=== PATIENT | female | born 1985 | race Caucasian/White ===

== ENCOUNTER 2021-01-21 10:18 | Outpatient (CLI) | payer BC, SELFPAY ==
--- NOTE | 2021-01-21 10:40 | ECG_ITS ---
Measurements Intervals [place] Rate: 73 P: 18 DE: 158 QRS: 8 QRSD: 96 T: 11 QT: 385 QTc: 426 Interpretive Statements SINUS RHYTHM NORMAL ECG Electronically Signed On 01-21-2021 11:17:07 CDT by Gildardo Chen D.O.
[2021-01-21 11:04] LABS: Basophils Percent Auto 0.4 % (0.2-1.2); Eosinophils Absolute Auto 0.2 K/mm3 (0-0.3); Eosinophils Percent Auto 3.3 % (0-4.4); Hematocrit 37.8 % (37.0-47.0); Hemoglobin 12.3 g/dL (12.0-15.0); Immature Granulocyte Absolute 0.02 K/mm3 (0.00-0.031); Immature Granulocyte Percent A 0.3 % (0-0.5); Lymphocytes Absolute Auto 2.12 K/mm3 (0.9-3.2); Lymphocytes Percent Auto 29.6 % (18.3-44.2); Mean Corpuscular HGB Conc 32.5 g/dl (32-36); Mean Corpuscular Hemoglobin 26.8 pg (26-34); Mean Corpuscular Volume 82.4 fl (80-100); Monocytes Absolute Auto 0.4 K/mm3 (0.1-0.6); Monocytes Percent Auto 5.9 % (2.6-8.5); Neutrophils Absolute Auto 4.3 K/mm3 (1.3-6.7); Neutrophils Percent Auto 60.5 % (45.5-73.1); Platelet Count Result 335 k/mm3 (150-375); Red Blood Count 4.59 M/mm3 (4.2-5.4); Red Cell Distribution Width 12.9 % (11.5-14.5); White Blood Count 7.2 K/mm3 (4.5-10.0)
[2021-01-21 12:08] LABS: Alanine Aminotransferase 31 U/L (4-35); Albumin Level 4.5 g/dL (3.5-5.1); Alkaline Phosphatase 83 U/L (38-126); Anion Gap 14 mmol/L (8-16); Aspartate Amino Transferase 30 U/L (14-36); Bilirubin,Total 0.2 mg/dL (0.2-1.3); Blood Urea Nitrogen 17 mg/dL (7-17); Calcium 9.2 mg/dL (8.4-10.2); Carbon Dioxide 21 mmol/L (22-30); Chloride 104 mmol/L (98-107); Cholesterol 221 mg/dL (0-200); Estimated Glomerular Filt Rate > 60; Glucose 96 mg/dL (65-110); HDL Direct 51 mg/dL; Sodium 139 mmol/L (137-145); Triglycerides 136 mg/dL (<150)
[2021-01-21 12:18] LABS: LDL Cholesterol Direct 129 mg/dL
[2021-01-24 08:06] LABS: FSH 8.6 mIU/mL (***); LH 3.9 mIU/mL (***); Progesterone 0.4 ng/mL (***)
[2021-01-24 11:00] LABS: Testosterone Free 3.2 pg/mL (0.2-5.0)
== END 2021-01-21 10:19 | disposition home or self-care (01) ==
PROVIDERS: PCP Family Medicine; Visit Provider Nurse Practitioner Family
DX: R63.5 Abnormal weight gain (principal); R00.2 Palpitations; Z13.29 Encounter for screening for other suspected endocrine disorder; Z13.220 Encounter for screening for lipoid disorders
CPT/HCPCS: 36415; 80053; 80061; 82672; 83001; 83002; 83525; 84144; 84402; 84443; 85025; 93005

== ENCOUNTER 2021-02-11 11:01 | Outpatient (CLI) | payer BC, SELFPAY ==
--- NOTE | 2021-02-13 12:35 | WPDHOLTEREM ---
Holter/Event Monitor Holter/Event Monitor Date of procedure: 02/11/21 Holter/Event Procedure: 24 Hr Holter Monitor Indications: Palpitations Conclusion: 1. 24 hour holter monitor on 02/11/21. 2. Underlying rhythm is sinus rhythm. HR range 58-130 bpm; average HR 86 bpm. 3. There are 3 supraventricular couplets. No supraventricular tachycardia. 4. There is 1 premature ventricular complex. No ventricular tachycardia. 5. No sinoatrial or atrioventricular blocks. No significant pauses greater than 2 seconds. 6. Patient reports symptoms of fast heart rate which demonstrate sinus rhythm, HR range 85-103 bpm.
== END 2021-02-11 11:02 | disposition home or self-care (01) ==
PROVIDERS: PCP Family Medicine; Visit Provider Nurse Practitioner Family
DX: R00.2 Palpitations (principal)
CPT/HCPCS: 93225; 93226

== ENCOUNTER 2021-03-26 18:22 | Emergency (ER) | payer BC, SELFPAY ==
--- NOTE | 2021-03-26 18:26 | ED.URI ---
HPI - URI/Sore Throat General Chief Complaint: Upper Respiratory Infection Stated Complaint: Headache,Cough,Sore Throat,Chest Congestion Time Seen by Provider: 03/26/21 18:50 Source: patient, RN notes reviewed and old records reviewed Mode of arrival: ambulatory Limitations: no limitations History of Present Illness HPI Narrative: 35-year-old female who presents to [facility] with complaints of sore throat, cough, a lot of sinus drainage since Tuesday. Patient reports that she called her physician and he ordered Doxycycline for her and she has been taking this since Tuesday with no improvement in her symptoms. Patient states that her throat is very sore and her cough has become harsher and is productive Patient states that she has had COVID vaccinations X2. Patient is concerned that she might have strep or COVID is concerned because has cancer and is getting ready to start radiation treatments.She has taken Theraflu, Vicks, Tylenol and Motrin Flonase, vapor inhaler and Xyzal for her symptoms along with ordered antibiotic from MD with no improvement MD elicited complaint: cough, sore throat, rhinorrhea and nasal congestion Pertinent past history: sinusitis and seasonal allergies Onset (ago): day(s) (3 days) Consistency: progressively worsening Related Data Allergies Allergy/AdvReac Type Severity Reaction Status Date / Time cefuroxime Allergy Intermediate Gastrointestinal Verified 03/26/21 19:20 Upset erythromycin base Allergy Intermediate Hives Verified 03/26/21 19:20 Penicillins Allergy Intermediate Nausea and Verified 03/26/21 19:20 Vomiting Review of Systems Review of Systems: CONSTITUTIONAL: positive fever, chills, or sweats. EYES: Denies visual changes, redness, or discharge. ENT: Positive for rhinorrhea, congestion, sore throat, no otalgia. CARDIOVASCULAR: Denies chest pain, palpitations, or edema. RESPIRATORY: Positive for harsh cough or dyspnea. GASTROINTESTINAL: Denies abdominal pain, nausea, vomiting, positive diarrhea today only GENITOURINARY: Denies dysuria or hematuria. SKIN: Denies rash or itching. MUSCULOSKELETAL: Denies back pain, joint pain,positive for body aches NEUROLOGIC: Denies headache, numbness, or weakness. PSYCHIATRIC: Positive for anxiety or depression. All systems reviewed & are unremarkable except as noted in HPI and below PMFSH Past Medical History Medical History (Updated 03/26/21 @ 19:16 by Terri Charlton NP) Anxiety and depression Cellulitis of left lower extremity Cholecystectomy planned Chronic cholecystitis Dietary counseling and surveillance (06/29/18) Disorder of appendix Encounter for surgical aftercare following surgery of digestive system Flu vaccine need Fungal infection of skin Holter monitor, abnormal Left foot pain Morbid (severe) obesity due to excess calories Peeling skin Pleural effusion RUQ abdominal pain Symptomatic cholelithiasis Surgical History Surgical History (Updated 03/26/21 @ 19:16 by Terri Charlton NP) History of tonsillectomy Hx of cholecystectomy Previous section Family History Family History Mother Family history of allergic disorder Grandparent Family history of malignant neoplasm of ovary Father Hypertension Sibling Anxiety Depression Other Asthma Family history of malignant neoplasm Social History Social History Smoking status: Never smoker Second hand tobacco smoke exposure: No Alcohol intake: current Substance use: current Substance use type: marijuana Other substance usage details: edibles for sleep disorder Additional occupation/education comments: Gender identity (if verbalized by the patient): Female Comments At time of signature, agree with nursing past medical, surgical, social and family history. There is no relevant family history pertinent to the presentin
[2021-03-26 18:35] VITALS: BP 136/91; PULSE 104; RESP 20; TEMP 36.7; O2SAT 98
== END 2021-03-26 19:14 | disposition home or self-care (01) ==
PROVIDERS: Emergency Provider Registered Nurse; PCP Family Medicine
DX: R05.9 Cough, unspecified (principal); J06.9 Acute upper respiratory infection, unspecified; Z20.822 Contact with and (suspected) exposure to COVID-19; E66.01 Morbid (severe) obesity due to excess calories; Z68.38 Body mass index [BMI] 38.0-38.9, adult; F41.9 Anxiety disorder, unspecified
CPT/HCPCS: 87081; 87426; 87880; 99213; C9803; G0463

== ENCOUNTER → 2021-05-20 07:40 | Outpatient (CLI) | payer BC, SELFPAY ==
[2021-05-20 21:05] LABS: SARS-CoV-2 RNA PCR Positive
== END ==
PROVIDERS: PCP Family Medicine; Visit Provider Nurse Practitioner Family
DX: U07.1 COVID-19 (principal)
CPT/HCPCS: C9803; U0003; U0005

== ENCOUNTER 2021-12-25 13:39 | Emergency (ER) | payer BC, SELFPAY ==
--- NOTE | ~2021-12-25 | XR_ITS ---
EXAMINATION: XR abdomen/kub 1V DATE: 12/25/2021 15:40 INDICATION: Kidney stone. Right flank pain. TECHNIQUE: A supine view of the abdomen on 2 radiographs was obtained. COMPARISON: CT dated 12/25/2021 FINDINGS: There is excreted contrast related to the earlier contrast-enhanced CT. The left renal collecting sys tem and ureter appear normal. There is a delayed right nephrogram with more dilute excreted contrast in the mildly dilated right renal calyces corresponding to the mild obstructive hydronephrosis eviden t on prior CT. 2-3 mm distal right ureteral stone can be seen along side the incompletely distended n ormal bowel gas pattern. Lung bases are clear. Heart size is normal. Mild lumbar levocurvature. Contr ast-filled bladder. IMPRESSION: 1. 2-3 mm obstructing stone at the distalmost right ureter with mild right hydronephrosis and delayed nephrogram. Reviewed, dictated and finalized at location A. IMPRESSION: 1. 2-3 mm obstructing stone at the distalmost right ureter with mild right hydr onephrosis and delayed nephrogram.
--- NOTE | ~2021-12-25 | CT_ITS ---
EXAMINATION: CT abdomen pelvis w con DATE: 12/25/2021 15:13 INDICATION: Abdominal and back pain radiating to groin. Dysuria. TECHNIQUE: Computed tomography (CT) of the abdomen and pelvis was performed with 100 CC Omnipaque 350 intravenous contrast. Automated exposure control and iterative reconstruction technique were employe d. Exam dose: 1413.74 mGy-cm total exam DLP. COMPARISON: 04/21/2018 CT abdomen pelvis FINDINGS: The lung bases are clear of infiltrate or consolidation. Normal heart size. No pericardial or pleural effusion. Status post cholecystectomy. No hepatic, splenic, pancreatic, adrenal or renal space-occupying mass l esion is detected. There is an approximately 3.2 mm calculus at the right ureterovesical junction with moderate right hy droureteronephrosis, right nephromegaly. There is a pinpoint nonobstructing lower pole right renal calculus. Normal caliber of the abdominal aorta. No intraperitoneal or retroperitoneal or pelvic mass lesion or adenopathy or ascites. Small sliding hiatal hernia. No bowel obstruction or intraperitoneal free air. The uterus is present. There is an involuting 2 cm left ovarian cyst with small amount of free fluid in the posterior cul-de-sac. The urinary bladder is evacuated. Normal appendix. No bowel obstruction or intraperitoneal free air. Small fat-containing umbilical hernia. No suspicious osteolytic or osteoblastic lesions. IMPRESSION: 3.2 mm right ureterovesical junction calculus with moderate right hydroureteronephrosis, mild right nephromegaly Pinpoint nonobstructing right renal calculus Small sliding hiatal hernia Involuting 2 cm left ovarian cyst with small amount of free fluid in the posterior cul-de-sac Reviewed, dictated and finalized at [facility]. Reviewed, dictated and finalized at location B. 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
[2021-12-25 13:41] VITALS: BP 122/94; PULSE 73; RESP 16; TEMP 36.3; O2SAT 100
[2021-12-25 14:23] LABS: Basophils Absolute Auto 0.1 K/mm3 (0.0-0.1); Basophils Percent Auto 0.4 % (0.2-1.2); Eosinophils Absolute Auto 0.1 K/mm3 (0-0.3); Eosinophils Percent Auto 1.1 % (0-4.4); Immature Granulocyte Absolute 0.05 K/mm3 (0.00-0.031); Immature Granulocyte Percent A 0.4 % (0-0.5); Lymphocytes Absolute Auto 2.07 K/mm3 (0.9-3.2); Lymphocytes Percent Auto 16.9 % (18.3-44.2); Mean Corpuscular HGB Conc 31.7 g/dl (32-36); Mean Corpuscular Volume 85.1 fl (80-100); Mean Platelet Volume 9.9 fl (7.4-10.4); Monocytes Absolute Auto 0.6 K/mm3 (0.1-0.6); Monocytes Percent Auto 5.1 % (2.6-8.5); Neutrophils Absolute Auto 9.3 K/mm3 (1.3-6.7); Neutrophils Percent Auto 76.1 % (45.5-73.1); Platelet Count Result 390 k/mm3 (150-375); Red Blood Count 4.82 M/mm3 (4.2-5.4); Red Cell Distribution Width 12.9 % (11.5-14.5); White Blood Count 12.3 K/mm3 (4.5-10.0)
[2021-12-25] MEDS: KETOROLAC 30 MG/ML VIAL (*BKC) IV PUSH (14:34)
[2021-12-25] MEDS: SODIUM CHLORIDE 0.9% IV 1,000 ML 999 ML IV CONT (14:34)
[2021-12-25] MEDS: ONDANSETRON INJ 4 MG/2 ML VIAL IV PUSH (14:34)
--- NOTE | 2021-12-25 14:35 | PC.NURSE ---
Patient appears very uncomfortable. Patient holding right lower and and flank. Patient diaphoretic and unsettled, moving around on the stretcher. Patient reports she had sudden onset of pain today. Patient also states she feels like she needs to urinate but hasn't been.
--- NOTE | 2021-12-25 14:36 | ED.ABDPAIN ---
HPI - Abdominal Pain General Chief Complaint: Abdominal Pain Stated Complaint: rt side pain, dysuria Time Seen by Provider: 12/25/21 14:13 Source: RN notes reviewed History of Present Illness HPI narrative: Patient presents emergency department from home for abdominal pain. Patient states symptoms began this morning the pain is located in the right side the abdomen radiates in the right side of the back described as sharp and stabbing in nature associate with nausea and vomiting. She denies any fevers or chills chest pain shortness of breath or diarrhea states she not taking thing for the pain at home Related Data Allergies Allergy/AdvReac Type Severity Reaction Status Date / Time cefuroxime Allergy Intermediate Gastrointestinal Verified 12/25/21 13:46 Upset erythromycin base Allergy Intermediate Hives Verified 12/25/21 13:46 Penicillins Allergy Intermediate Nausea and Verified 12/25/21 13:46 Vomiting Review of Systems Review of Systems: Gen.: Denies fevers or chills ENT: Denies congestion Respiratory: Denies shortness of breath or cough CV: Denies chest pain or palpitations GI: See HPI reports hematuria Musculoskeletal: Denies back pain or muscle pain Neuro: Denies numbness, tingling, weakness or focal weakness Skin: Denies rash Except as documented, all other systems reviewed and negative PMFSH Past Medical History Medical History (Updated 12/25/21 @ 16:29 by Rodrick Houston DO) Anxiety and depression BMI 38.0-38.9,adult Cellulitis of left lower extremity Cholecystectomy planned Chronic cholecystitis Dietary counseling and surveillance (06/29/18) Disorder of appendix Encounter for surgical aftercare following surgery of digestive system Flu vaccine need Fungal infection of skin Holter monitor, abnormal Left foot pain Peeling skin Pleural effusion RUQ abdominal pain Symptomatic cholelithiasis Surgical History Surgical History History of tonsillectomy Hx of cholecystectomy Previous section Family History Family History Mother Family history of allergic disorder Grandparent Family history of malignant neoplasm of ovary Father Hypertension Sibling Anxiety Depression Other Asthma Family history of malignant neoplasm Social History Social History Smoking status: Never smoker Second hand tobacco smoke exposure: No Alcohol intake: current Substance use: current Substance use type: marijuana Other substance usage details: edibles for sleep disorder Additional occupation/education comments: Gender identity (if verbalized by the patient): Female Exam Narrative: APPEARANCE: No acute distress, nontoxic, resting in bed HEENT: Normocephalic, atraumatic, OMM RESPIRATORY: No respiratory distress, clear to auscultation bilaterally with no rhonchi wheezing or rales CARDIOVASCULAR: RRR s murmur ABDOMINAL: Soft nondistended tender palpation right upper quadrant right lower quadrant no tenderness over left upper quadrant left lower quadrant no rebound or guarding right flank tenderness MUSCULOSKELETAl: Moves all extremities. No clubbing, cyanosis or edema. NEURO: Awake and alert. Following commands, speech normal, no focal deficits SKIN:: Warm, dry. Normal Color PSYCHIATRIC: Normal affect/mood exam Course Course Emergency Course: Patient continues to have pain will discuss with urology for possible stone removal Discussed with Dr. Vásquez presentation work-up at this time take patient to the OR Discussed with patient plan for OR in agreement at this time Dr. Sheikh intensive patient feeling much better this time at this time feels patient may be discharged follow-up as an outpatient Discussed with patient results of workup and diagnosis. Discussed need for follow-up with luiz
[2021-12-25 14:43] LABS: Appearance Urine Cloudy (Clear); Bilirubin Urine 1+ (Negative); Blood Urine Trace-lysed (Negative); Color Urine Yellow (Yellow); Glucose Urine UA Negative (Negative); Ketones Urine Trace mg/dL (Negative); Leukocyte Esterase Ur Negative LEU/UL (Negative); Nitrate Urine Negative (Negative); Protein Urine Trace mg/dL (Negative); Specific Grav Ur >= 1.030 (1.001-1.035); Urobilinogen Urine 0.2 mg/dL (<2.0); pH Urine 5.5 (5.0-9.0)
[2021-12-25 14:44] LABS: Alanine Aminotransferase 23 U/L (6-35); Alkaline Phosphatase 85 U/L (38-126); Anion Gap 14 mmol/L (8-16); Aspartate Amino Transferase 23 U/L (14-36); Bilirubin,Total 0.4 mg/dL (0.2-1.3); Blood Urea Nitrogen 19 mg/dL (7-17); Calcium 9.6 mg/dL (8.4-10.2); Carbon Dioxide 24 mmol/L (22-30); Chloride 103 mmol/L (98-107); Estimated CRCL calculation 84 ml/min; Estimated Glomerular Filt Rate > 60; Glucose 117 mg/dL (65-110); Lipase 48 U/L (23-300); Potassium 3.5 mmol/L (3.4-5.0); Sodium 141 mmol/L (137-145)
[2021-12-25 15:00] LABS: Amorphous Sediment Urine Few; Bacteria Urine Trace /hpf; Mucus Urine Heavy /lpf; Squamous Epithelial Cell Urine Many /hpf (Few); WBC Urine 0-3 /hpf
[2021-12-25 15:01] LABS: Add Urine Microscopic? YES
[2021-12-25 15:16] VITALS: BP 135/67; O2SAT 100
[2021-12-25 15:17] VITALS: O2SAT 100
--- NOTE | 2021-12-25 15:30 | PC.NURSE ---
Patient to CT at this time.
[2021-12-25 15:37] VITALS: O2SAT 100
[2021-12-25] MEDS: MORPHINE SULFATE (*CRX) 4 MG/ML INJ IV PUSH (15:41)
[2021-12-25 16:03] VITALS: O2SAT 100
--- NOTE | 2021-12-25 16:14 | PC.NURSE ---
Patient care report called to KATYA Gao in Pre-op. All questions answered at this time. KATYA Gao instructed that patient could be moved to [facility] around 1700.
--- NOTE | 2021-12-25 16:28 | WPDANESEPPF ---
Anes - Initial Pre Proc Eval Procedure: Operation Date: 12/25/21 18:00 Proposed Procedures p Cystoscopy,Right Stent Placement - Swapna Vásquez MD Date/Time: 12/25/21 16:28 Surgeon: Swapna Vásquez MD Pre Op Diagnosis: rt side pain, dysuria Patient Data Age: 36 Gender: F Height: 1.65 m Weight: 104.5 kg Last Vital Signs Temp 36.3 C L 12/25/21 13:41 Pulse 73 12/25/21 13:41 Resp 16 12/25/21 13:41 BP 122/94 H 12/25/21 13:41 Pulse Ox 100 12/25/21 13:41 O2 Del Method Room Air 12/25/21 13:41 Allergies Allergy/AdvReac Type Severity Reaction Status Date / Time cefuroxime Allergy Intermediate Gastrointestinal Verified 12/25/21 13:46 Upset erythromycin base Allergy Intermediate Hives Verified 12/25/21 13:46 Penicillins Allergy Intermediate Nausea and Verified 12/25/21 13:46 Vomiting Home Medications Medication Instructions Recorded Confirmed Type albuterol sulfate 90 mcg/actuation 1 puff inhalation Q4H PRN 05/21/21 11/22/21 Rx aerosol inhaler shortness of breath or wheezing #8.5 grams clobetasol 0.05 % topical ointment 1 applic topical BID #30 grams 11/04/21 11/04/21 Rx bupropion HCl 300 mg 24 hr tablet, 300 mg PO QAM #90 tabs 12/02/21 Rx extended release (Wellbutrin XL) dextroamphetamine-amphetamine 20 20 mg PO DAILY #30 tabs 12/07/21 Rx mg tablet (Adderall) Laboratory Tests 12/25/21 12/25/21 12/25/21 14:15 14:15 14:19 WBC 12.3 K/mm3 H K/mm3 (4.5-10.0) RBC 4.82 M/mm3 M/mm3 (4.2-5.4) Hgb 13.0 g/dL g/dL (12.0-15.0) Hct 41.0 % % (37.0-47.0) MCV 85.1 fl fl (80-100) MCH 27.0 pg pg (26-34) MCHC 31.7 g/dl L g/dl (32-36) RDW 12.9 % % (11.5-14.5) Plt Count 390 k/mm3 H k/mm3 (150-375) MPV 9.9 fl fl (7.4-10.4) Immature Gran % (Auto) 0.4 % % (0-0.5) Neut % (Auto) 76.1 % H % (45.5-73.1) Lymph % (Auto) 16.9 % L % (18.3-44.2) [place] % (Auto) 5.1 % % (2.6-8.5) Eos % (Auto) 1.1 % % (0-4.4) Baso % (Auto) 0.4 % % (0.2-1.2) Lymph # (Auto) 2.07 K/mm3 K/mm3 (0.9-3.2) [place] # (Auto) 0.6 K/mm3 K/mm3 (0.1-0.6) Eos # (Auto) 0.1 K/mm3 K/mm3 (0-0.3) Baso # (Auto) 0.1 K/mm3 K/mm3 (0.0-0.1) Abs Immat Gran (auto) 0.05 K/mm3 H K/mm3 (0.00-0.031) Absolute Neuts (auto) 9.3 K/mm3 H K/mm3 (1.3-6.7) Absolute Nucleated RBC 0.0 K/mm3 K/mm3 (0.0-0.012) Nucleated RBC % 0.0 % % (0.0-0.2) Sodium 141 mmol/L mmol/L (137-145) Potassium 3.5 mmol/L mmol/L (3.4-5.0) Chloride 103 mmol/L mmol/L (98-107) Carbon Dioxide 24 mmol/L mmol/L (22-30) Anion Gap 14 mmol/L mmol/L (8-16) BUN 19 mg/dL H mg/dL (7-17) Creatinine 1.00 mg/dL mg/dL (0.7-1.0) Estim Creat Clear Calc 84 ml/min ml/min Estimated GFR > 60 (59 - ) Glucose 117 mg/dL H mg/dL (65-110) Calcium 9.6 mg/dL mg/dL (8.4-10.2) Total Bilirubin 0.4 mg/dL mg/dL (0.2-1.3) AST 23 U/L U/L (14-36) ALT 23 U/L U/L (6-35) Alkaline Phosphatase 85 U/L U/L (38-126) Total Protein 9.0 g/dL H g/dL (6.3-8.2) Albumin 5.0 g/dL g/dL (3.5-5.1) Lipase 48 U/L U/L (23-300) Urine Color Yellow (Yellow) Urine Appearance Cloudy H (Clear) Urine pH 5.5 (5.0-9.0) Ur Specific [place] >= 1.030 (1.001-1.035) Urine Protein Trace mg/dL mg/dL (Negative) Urine Glucose (UA) Negative mg/dL mg/dL (Negative) Urine Ketones Trace mg/dL mg/dL (Negative) Ur Blood (Man) Trace-lysed (Negative) Urine Nitrate Negative (Negative) Urine Bilirubin 1+ H (Negative) Urine Urobilinogen 0.2
[2021-12-25 16:30] VITALS: O2SAT 100
--- NOTE | 2021-12-25 17:08 | WPDURCON ---
Assessment and Plan Assessment and plan (1) Kidney stone on right side: Code(s): N20.0 - Calculus of kidney Status: Acute Plan 36-year-old female with a 3mm right distal ureteral stone with associated hydronephrosis -pain is now controlled in the ER. Plan discharge home with oral narcotic pain medicine and Flomax. -patient should strain her urine. -plan follow-up renal ultrasound and KUB next week to ensure stone passage Urology Consult Note HPI Date Seen: 12/25/21 Requesting Physician: Dr. Leon Primary Care Provider: Clinton Gutierrez MD Consult Narrative Narrative: Fanny Aponte is a 36 year old female who presented to the ER with severe right-sided pain. She was found to have a distal right-sided stone. No history of previous stone disease. Patient was given IV narcotic pain medicine the ER with improvement of her discomfort PMFSH Past Medical History Medical History (Updated 12/25/21 @ 16:29 by Rodrick Houston DO) Anxiety and depression BMI 38.0-38.9,adult Cellulitis of left lower extremity Cholecystectomy planned Chronic cholecystitis Dietary counseling and surveillance (06/29/18) Disorder of appendix Encounter for surgical aftercare following surgery of digestive system Flu vaccine need Fungal infection of skin Holter monitor, abnormal Left foot pain Peeling skin Pleural effusion RUQ abdominal pain Symptomatic cholelithiasis Surgical History Surgical History History of tonsillectomy Hx of cholecystectomy Previous section Family History Family History Mother Family history of allergic disorder Grandparent Family history of malignant neoplasm of ovary Father Hypertension Sibling Anxiety Depression Other Asthma Family history of malignant neoplasm Social History Social History Smoking status: Never smoker Second hand tobacco smoke exposure: No Alcohol intake: current Substance use: current Substance use type: marijuana Other substance usage details: edibles for sleep disorder Additional occupation/education comments: Gender identity (if verbalized by the patient): Female Meds Home Medications and Allergies Home Medications Medication Instructions Recorded Confirmed Type albuterol sulfate 90 mcg/actuation 1 puff inhalation Q4H PRN 05/21/21 11/22/21 Rx aerosol inhaler shortness of breath or wheezing #8.5 grams clobetasol 0.05 % topical ointment 1 applic topical BID #30 grams 11/04/21 11/04/21 Rx bupropion HCl 300 mg 24 hr tablet, 300 mg PO QAM #90 tabs 12/02/21 Rx extended release (Wellbutrin XL) dextroamphetamine-amphetamine 20 20 mg PO DAILY #30 tabs 12/07/21 Rx mg tablet (Adderall) Allergies Allergy/AdvReac Type Severity Reaction Status Date / Time cefuroxime Allergy Intermediate Gastrointestinal Verified 12/25/21 13:46 Upset erythromycin base Allergy Intermediate Hives Verified 12/25/21 13:46 Penicillins Allergy Intermediate Nausea and Verified 12/25/21 13:46 Vomiting Vital Signs Vital Signs - 24 hr 12/25/21 13:41 12/25/21 15:16 12/25/21 15:17 Temperature 36.3 C L Pulse Rate 73 Respiratory Rate 16 Blood Pressure 122/94 H 135/67 Pulse Oximetry 100 100 100 Oxygen Delivery Room Air 12/25/21 15:37 12/25/21 16:03 12/25/21 16:30 Temperature Pulse Rate Respiratory Rate Blood Pressure Pulse Oximetry 100 100 100 Oxygen Delivery Exam Narrative: The patient is awake and alert. She is in no acute distress. Breathing is labored. Abdomen soft nontender nondistended. Currently without CVA tenderness Results Labs CBC & Chem 7: 12/25/21 14:15 12/25/21 14:15 Labs: Short CBC 12/25/21 Range/Units 14:15 WBC 12.3 H (4.5-10.0) K/mm3 Hg
== END 2021-12-25 17:27 | disposition home or self-care (01) ==
LOC: ANHED 16:11 → ANHSURGERY 17:05 → ANHED 17:07
PROVIDERS: Emergency Provider Emergency Medicine; PCP Family Medicine
DX: N13.2 Hydronephrosis with renal and ureteral calculous obstruction (principal); K44.9 Diaphragmatic hernia without obstruction or gangrene
CPT/HCPCS: 36415; 74018; 74177; 80053; 81001; 81025; 83690; 85025; 96361; 96374; 96375; 99284; A9270; J1885; J2270; J2405; J7030; Q9967

== ENCOUNTER 2024-01-30 08:31 | Emergency (ER) | payer BC, SELFPAY ==
--- NOTE | 2024-01-30 08:44 | ED.GENADULT ---
HPI - General Adult General Chief complaint: Neck Pain/Injury Stated complaint: Neck Pain Time Seen by Provider: 01/30/24 08:58 Source: patient, RN notes reviewed and old records reviewed Mode of arrival: ambulatory Limitations: no limitations History of Present Illness HPI narrative: 38 year old female presents to the [facility] with complaints of left lower neck pain. Patient reports that a tree branch approximately 6 in in diameter fell on the top of her head yesterday. States that she felt a little off yesterday, lay down to take a nap. Patient reports that she was seeing spots/floaters Has used ice or heat to the area. Denies taking oral medication Patient reports this morning she woke up, went to turn her head had significant pain C6-C7 T1. States the pain was so bad that she did vomit. Pain and tenderness to lower C-spine, midline. Patient reports numbness and tingling at times to the left side. Denies loss of consciousness. Onset (ago): day(s) (1) Treatments prior to arrival: cold therapy and heat therapy Related Data Allergies Allergy/AdvReac Type Severity Reaction Status Date / Time erythromycin base Allergy Intermediate Hives Verified 01/30/24 08:54 cefuroxime AdvReac Intermediate Gastrointestinal Verified 01/30/24 08:54 Upset Penicillins AdvReac Intermediate Nausea and Verified 01/30/24 08:54 Vomiting Review of Systems Review of Systems: All systems reviewed & are unremarkable except as noted in HPI and below Constitutional: Constitutional: Reports no additional constitutional complaints Eyes: Eyes: Reports no additional eye complaints ENT: Reports system reviewed and no additional complaints, except as documented Cardiovascular: Cardiovascular: Reports no additional cardiovascular complaints, Denies chest pain and Denies dyspnea Respiratory: Respiratory: Reports no additional respiratory complaints, Denies chest congestion, Denies cough and Denies dyspnea Gastrointestinal: Gastrointestinal: Reports as per HPI, Denies abdominal pain, Reports nausea and Reports vomiting Musculoskeletal: Musculoskeletal: Reports as per HPI, Reports neck pain (left lower), Reports numbness (Intermittent left arm and leg), Reports stiffness and Reports tingling (Left arm leg, intermittent) Integumentary/Breasts: Skin/Breast: Reports system reviewed and no additional complaints, except as docu Neurologic: Reports as per HPI Psychiatric: Psychiatric: Reports no additional psychiatric complaints Allergic/Immunologic: Allergic/Immunologic: Reports no additional allergic/immunologic complaints PMFSH Past Medical History Medical History Anxiety and depression Cellulitis of left lower extremity Cholecystectomy planned Chronic cholecystitis Dietary counseling and surveillance (06/29/18) Disorder of appendix Encounter for surgical aftercare following surgery of digestive system Flu vaccine need Fungal infection of skin Holter monitor, abnormal Left foot pain Peeling skin Pleural effusion RUQ abdominal pain Symptomatic cholelithiasis Surgical History Surgical History History of tonsillectomy Hx of cholecystectomy Previous section Family History Family History Mother Family history of allergic disorder Grandparent Family history of malignant neoplasm of ovary Father Hypertension Sibling Anxiety Depression Other Asthma Family history of malignant neoplasm Social History Social History Smoking status: Never smoker Second hand tobacco smoke exposure: No Alcohol intake: current Substance use: current Substance use type: marijuana Other substance usage details: edibles for sleep disorder Lack of Transportation: No Lack of Food: Never True Current [facility]: [facility]
[2024-01-30 08:54] VITALS: BP 150/94; PULSE 71; RESP 16; TEMP 36.7; O2SAT 100
[2024-01-30 08:56] VITALS: BP 150/94; PULSE 71; RESP 16; TEMP 36.7; O2SAT 100
== END 2024-01-30 09:22 | disposition short-term general hospital (02) ==
PROVIDERS: Emergency Provider Nurse Practitioner; PCP Family Medicine
DX: M54.2 Cervicalgia (principal); S09.90XA Unspecified injury of head, initial encounter; W20.8XXA Other cause of strike by thrown, projected or falling object, initial encounter
CPT/HCPCS: 99212; G0463; L0140

== ENCOUNTER 2024-04-23 08:17 | Outpatient (CLI) | payer BC, SELFPAY ==
[2024-05-20 11:30] VITALS: BMI 40.5
--- NOTE | 2024-05-20 11:30 | P.SLEEP_ITS ---
Sleep Study Date of Study: 04/23/24 Ordering Provider: PALLAVI Yanez Interpreting Physician: Elaine Cash DO Sleep Study Type: Polysomnogram Height: 1.68 m Weight: 113.852 kg Body Mass Index: 40.5 Neck Circumference (inches): 17 Bud: 8 Reason for Sleep Study Snoring, difficulty staying asleep Sleep History The patient is a 38-year-old female that had a sleep study ordered by the pulmonary group for evaluation of sleep apnea. The patient occasionally awakens from sleep short breath. She denies awakening at night with heartburn, belching or cough. She occasionally snores and is occasionally enough others complain. She constantly has trouble sleeping when she has a cold. She denies waking up gasping for air throughout the night. She denies having breathing problems at night observed by herself or others. She denies sweating excessively at night. She rarely has heart palpitations or irregular heartbeats during 9. She occasionally falls asleep during the day but never while driving. She denies cataplexy. She denies having trouble at school or work due to sleepiness. She occasionally feels unable to move while waking up or falling asleep. She occasionally feels afraid of going to sleep. She occasionally has nightmares. She frequently remembers her dreams. She constantly has thoughts racing through her mind. She frequently feels sad, depressed and anxious. She occasionally has muscular tension. She rarely notices parts of her body jerk. She denies kicking during the night. She denies having crawling and aching feelings in her legs and denies having leg pain during the night. She constantly grinds her teeth during sleep min constantly awakens with morning jaw pain. She denies being bothered by pain during the day and denies being awakened by pain during the night. She frequently wakes up feeling stiff in the morning. She frequently wakes up with sore or achy muscles. She rarely wakes up with pain neck, spine or other joints. She goes to bed between 9-11 p.m. on both weekdays and weekends. It takes her a long time to fall asleep. She wakes up 3-6 times throughout the night for unknown reasons and it takes a minimum of 15 minutes to fall back asleep. She wakes up between 6-7 a.m. on both weekdays and weekends. She typically gets 5 hours of sleep per night. She will stay in bed for 30 minutes after waking up the morning. She currently lives with her and child. She denies consuming any caffeinated beverages within 2 hours of bedtime. He denies engaging in physical exercise before bedtime. She will watch television before falling asleep. She denies taking naps in the afternoon or the evening. She does use an unspecified recreational drug. [facility] Past Medical History Medical History Holter monitor, abnormal Cholecystectomy planned Anxiety and depression Cellulitis of left lower extremity Chronic cholecystitis Dietary counseling and surveillance (06/29/18) Disorder of appendix Encounter for surgical aftercare following surgery of digestive system Flu vaccine need Fungal infection of skin Left foot pain Peeling skin Pleural effusion RUQ abdominal pain Symptomatic cholelithiasis Surgical History Surgical History Hx of cholecystectomy History of tonsillectomy Previous section Family History Family History Mother Family history of allergic disorder Grandparent Family history of malignant neoplasm of ovary Father Hypertension Sibling Anxiety Depression Other Asthma Family history of malignant neoplasm Social History Social History Smoking status: Never smoker Second hand tobacco smoke exposure: No Alcohol intake: current Substance use: current Substance use type: marijuana Other substance usage details: edibles for sleep disorder Lack of Transportation: No Lack of Food: Never True Current Housing: I Have Housing Concerned About Future Housing: No Difficulty Paying Gas/Electric Bills: No Difficulty Paying for Meds: No Currently Unemployed: No Education: Trade/Vocational Certificate Difficulty w/ Childcare or Family Care: No Living arrangements: with family Occupation/Education: occupation Additional occupation/education comments: Gender identity (if verbalized by the patient): Female Medications Home Medications ?Medication ?Instructions ?Recorded ?Confirmed ?Type nystatin 100,000 unit/gram topical 1 applic topical BID fugal foot 03/28/23 03/23/24 Rx cream rash #60 grams ketoconazole 2 % topical cream 1 applic topical BID #30 grams 08/04/23 03/23/24 Rx ubrogepant 50 mg tablet (Ubrelvy) 50 mg PO ONCE PRN migraine 08/04/23 03/23/24 Rx headache #10 tabs dextroamphetamine-amphetamine 20 20 mg PO DAILY #30 tabs 01/05/24 03/23/24 Rx mg tablet (Adderall) albuterol sulfate 90 mcg/actuation 1 puff inhalation Q4H PRN 01/30/24 03/23/24 Rx aerosol inhaler shortness of breath or wheezing #8.5 grams eszopiclone 2 mg tablet (Lunesta) 2 mg PO ONCE #1 tablet 03/23/24 03/23/24 Rx clindamycin HCl 300 mg capsule 300 mg PO Q8H 10 days #30 caps 05/14/24 Rx (Cleocin HCl) Sleep Procedure A full night polysomnogram using the Deltasight multi-channel system recorded the standard physiologic parameters including EEG, EOG, submentalis EMG, anterior tibialis EMG, EKG, body position, nasal and oral airflow using nasal pressure sensor and thermistor.? Respiratory parameters of chest and abdominal movements were recorded with Respiratory Inductance Plethysmography belts. Oxygen saturation was recorded by pulse oximetry. Video monitoring was also performed. Sleep stages, periodic limb movements, and EEG arousals were scored in 30 second epochs according to the criteria of the AASM Scoring Manual. The Apnea-Hypopnea Index was calculated using [facility] guidelines for definition of hypopnea with 4% O2 desaturations while scoring respiratory events. Sleep Architecture The total recording time was 519.2 minutes.? The total sleep time was 464.5 min utes. Sleep latency was 26.2 minutes. REM latency was 83.5 minutes. Sleep efficiency was 89.5%. The patient had 18 awakenings for an awakening index of 2.3. Wake after sleep onset time was 28.5 minutes. The patient spent 18.0 minutes, 3.9% of total sleep time in Stage N1. The patient spent 277.0 minutes, 59.6% in Stage N2. The patient spent 86.0 minutes, 18.5% in Stage N3. The patient spent 83.5 minutes, 18.0% in Stage REM sleep. Respiratory Analysis AASM Criteria (3% desat): The patient had 44 hypopneas, 5 obstructive apneas for an overall Apnea Hypopnea Index of 6.3. The REM Apnea Hypopnea Index was 28.0. The NREM Apnea Hypopnea Index was 1.6. The patient had a Central Apnea Hypopnea Index of 0. There was no evidence of Douglas-Soto Respirations. CMS Criteria (4% desat): The patient had 23 hypopneas, 5 obstructive apneas for an overall Apnea Hypopnea Index of 3.6. The REM Apnea Hypopnea Index was 25.9. The NREM Apnea Hypopnea Index was 0.6. The patient had a Central Apnea Hypopnea Index of 0. There was no evidence of Douglas-Soto Respirations. Arousals There were 197 total arousals for an arousal index of 25.4. There were 141 spontaneous arousals for an index of 18.2. There were 9 arousals due to respiratory events for an index of 1.2. There were 3 arousals due to periodic l imb movements for an index of 0.4.? There were 45 arousals due to isolated limb movements for an index of 5.8. Periodic Limb Movements The patient had 60 isolated limb movements with an index of 7.8. The patient had 5 periodic limb movements with an index of 0.6. Patient had a total of 65 limb movements with a total limb movement index of 8.4. Oximetry Data The patient had an average oxygen saturation of 96.4% in sleep with a minimum oxygen saturation of 88.0% and a maximum oxygen saturation of 99.0%. The patient had 27 oxygen desaturations that were 4% or greater resulting in an Oxygen Desaturation Index of 3.5.? The patient spent 0.2 minutes of total sleep time with an oxygen saturation below 88%. Snoring Profile Mild to moderate snoring was present during this study. Cardiac Profile The EKG showed normal sinus rhythm.?No arrhythmias or premature beats were seen. The patient had an average pulse rate of 72.9 bpm with a minimum pulse of rate of 62.0 bpm and a maximum pulse rate of 102.0 bpm. EEG Profile No signs of seizure activity seen. Assessment and Plan Assessment and Plan (1) EDWAR (obstructive sleep apnea): Code(s): G47.33 - Obstructive sleep apnea (adult) (pediatric) Status: Acute Assessment and Plan: The patient had an overall AHI of 6.3 with desaturation down to 88%. This is consistent with mild sleep apnea. Due to the patient's anxiety, she qualifies for treatment. I recommend that the patient be prescribed AutoPAP 5-15 cm H2O, CPAP mask/filters/tubing and heated humidity. This should be used with all episodes of sleep.? Compliance should be reviewed within 31-90 days of starting therapy for usage greater than 4 hours per night greater than 70% of the nights. The patient should be asked about symptoms such as?excessive daytime sleepiness, quality of sleep, decreased nocturia, increased?mental functioning such as memory, mood, and concentration. The patient also mentioned having frequent symptoms of anxiety and depression in her sleep history. I recommend that the patient complete a PHQ-9 and [id number] for further evaluation of mood disorders and review the results with her PCP. Data The data obtained during this sleep study is adequate for interpretation. Certification This sleep study has been reviewed by a board certified sleep medicine physician.
== END 2024-04-24 07:22 | disposition home or self-care (01) ==
LOC: ANHCSM 08:18
PROVIDERS: PCP Family Medicine; Visit Provider Physician Assistant
DX: G47.33 Obstructive sleep apnea (adult) (pediatric) (principal); G47.10 Hypersomnia, unspecified
CPT/HCPCS: 95810

== ENCOUNTER 2024-05-14 08:01 | Emergency (ER) | payer BC, SELFPAY ==
[2024-05-14 08:21] VITALS: BP 127/84; PULSE 97; RESP 16; TEMP 36.4; O2SAT 99
--- NOTE | 2024-05-14 08:49 | ED_ITS ---
HPI - URI/Sore Throat General Chief Complaint: Upper Respiratory Infection Stated Complaint: fever/cough/congestion/sore throat History of Present Illness HPI Narrative: 38 y/o female presented for c/o nasal congestion, sore throat, cough and subjective fever for 3 days. Denies sob, wheezing, n/v/d. Taking otc meds without relief. Son with the same. Related Data Allergies Allergy/AdvReac Type Severity Reaction Status Date / Time erythromycin base Allergy Mild Hives Verified 05/14/24 08:23 cefuroxime AdvReac Intermediate Gastrointestinal Verified 05/14/24 08:23 Upset Penicillins AdvReac Intermediate Nausea and Verified 05/14/24 08:23 Vomiting Review of Systems Review of Systems: per HPI [facility] Past Medical History Medical History Holter monitor, abnormal Cholecystectomy planned Anxiety and depression Cellulitis of left lower extremity Chronic cholecystitis Dietary counseling and surveillance (06/29/18) Disorder of appendix Encounter for surgical aftercare following surgery of digestive system Flu vaccine need Fungal infection of skin Left foot pain Peeling skin Pleural effusion RUQ abdominal pain Symptomatic cholelithiasis Surgical History Surgical History Hx of cholecystectomy History of tonsillectomy Previous section Family History Family History Mother Family history of allergic disorder Grandparent Family history of malignant neoplasm of ovary Father Hypertension Sibling Anxiety Depression Other Asthma Family history of malignant neoplasm Social History Social History Smoking status: Never smoker Second hand tobacco smoke exposure: No Alcohol intake: current Substance use: current Substance use type: marijuana Other substance usage details: edibles for sleep disorder Lack of Transportation: No Lack of Food: Never True Current Housing: I Have Housing Concerned About Future Housing: No Difficulty Paying Gas/Electric Bills: No Difficulty Paying for Meds: No Currently Unemployed: No Education: Trade/Vocational Certificate Difficulty w/ Childcare or Family Care: No Living arrangements: with family Occupation/Education: occupation Additional occupation/education comments: Gender identity (if verbalized by the patient): Female Exam Narrative: GENERAL: well-appearing, no acute distress. EYES: conjunctivae clear ENT: Mucous membranes moist. nasal congestion. TM pearly anne with normal light reflex bilaterally; no tragal tenderness. Oropharynx mildly erythematous without lesions. No drooling, no hoarseness, no trismus, uvula midline. No tripod positioning, hot potato voice, or soft palate swelling. NECK: Supple. No lymphadenopathy CHEST: Clear to auscultation, breath sounds equal. No respiratory distress, speaks in full sentences. HEART: Regular rate and rhythm. No murmur heard. SKIN: Warm, dry, no rash. NEURO: Alert and oriented x3. Course Course Emergency Course: Patient is aware of diagnosis, understands and agrees to treatment plan. Anticipatory guidance given. Patient agrees to follow-up as directed and is aware of reasons to seek care at the emergency department. Portions of this record may have been created with voice recognition software Level of Care: Express Care Visit Vital Signs Vital signs: Vital Signs Temperature 97.6 F 05/14/24 08:21 Pulse Rate 97 05/14/24 08:21 Respiratory Rate 16 05/14/24 08:21 Blood Pressure 127/84 05/14/24 08:21 Pulse Oximetry 99 05/14/24 08:21 Oxygen Delivery Room Air 05/14/24 08:21 Temperature 97.6 F 05/14/24 08:21 Pulse Rate 97 05/14/24 08:21 Respiratory Rate 16 05/14/24 08:21 Blood Pressure 127/84 05/14/24 08:21 Pulse Oximetry 99 05/14/24 08:21 Oxygen Delivery Room Air 05/14/24 08:21 MDM - URI/Sore Throat MDM Narrative Medical decision making narrative: Neg flu and covid, strep result reviewed with pt. Son tested pos for strep today. will give abx. Advise supportive treatments. Patient is appropriate for outpatient treatment and follow-up. Differential Diagnosis Differential diagnosis: Likely upper respiratory infection, sinusitis, viral infection, bronchitis, influenza and pharyngitis Lab Data Labs: Lab Results 05/14/24 05/14/24 Range/Units 08:23 08:32 POC Influenza A Ag Negative (Negative) POC Influenza B Ag Negative (Negative) POC SARS CoV-2 Ag Negative (Negative) POC Grp A Strep Screen Negative (Negative) Discharge Plan Discharge Clinical Impression: Upper respiratory infection Patient Disposition: Home, Self-Care Condition: Stable Instructions: Antibiotic Form, Upper Respiratory Infection (ED) Additional Instructions: Flu COVID and strep negative if symptoms are due to a viral illness, it is not treated with antibiotics. Viral symptoms can be present for up to 10-14 days. - Take the antibiotic as directed. Fever and sore throat typically resolve within one to three days. Most patients can return to work/crowds after 12 to 24 hours of antibiotic therapy, provided you are fever free and otherwise well. -Eat and drink things that are easy to swallow, like soft foods, cool liquids, tea with honey, or popsicles . -Salt water gargles and/or may use topical anesthetic ( Chloraseptic spray) or lozenges to relieve dryness or throat pain -Alternate Tylenol and ibuprofen as needed for pain and fever as directed. -Frequent hand washing or hand embedded systems developer is one of the best ways to prevent spread of infection. Throw away the toothbrush after 24hours of antibiotic. -Follow up with primary care provider in 2-3 days if condition is not improving -Go to the ER if you have trouble breathing, cannot drink enough fluids, have muffled voice or drooling, difficulty opening your mouth, or severe swelling. Patient Language: Georgian Prescriptions: New clindamycin HCl [Cleocin HCl] 300 mg capsule 300 mg PO Q8H 10 Days Qty: 30 0RF No Action nystatin 100,000 unit/gram cream 1 applic topical BID Qty: 60 0RF eszopiclone [Lunesta] 2 mg tablet 2 mg PO ONCE Qty: 1 0RF Rx Instructions: Take with you to sleep lab on the night of sleep study. ketoconazole 2 % cream 1 applic topical BID Qty: 30 0RF Ubrelvy 50 mg tablet 50 mg PO ONCE PRN (Reason: migraine headache) Qty: 10 5RF Rx Instructions: as a single dose; may repeat once in >=2 hours after first dose if needed dextroamphetamine-amphetamine [Adderall] 20 mg tablet 20 mg PO DAILY Qty: 30 0RF albuterol sulfate 90 mcg/actuation HFA aerosol inhaler 1 puff inhalation Q4H PRN (Reason: shortness of breath or wheezing) Qty: 8.5 0RF Follow-up/Referrals: Clinton Gutierrez MD [Primary Care Provider] - Stand Alone Forms: Work/School Release IP
[2024-05-14 08:54] LABS: EDCOVIDSCREEN Negative (Negative); EDINFLUASCREEN Negative (Negative); EDINFLUBSCREEN Negative (Negative)
[2024-05-14 08:56] LABS: EDSTREPNEGPOS1 Negative (Negative)
--- OUTSIDE RECORDS SUMMARY | 2024-05-21 15:07 | XMS_ITS | Encounter Summary ---
Author Organization [facility] Address [facility] [facility]. [place], [place] [id number] [place] [address] Care Team Providers Care Site Superintendent Name Role Phone Unavailable Primary Care Provider Unavailabl e Encounter Details Date Type Department Care Team (Latest Contact Info) Description 02/04/2015 Abstract [facility] Social History Tobacco Use Types Packs/Day Years Used Date Smoking Tobacco: Never Assessed Comments Unknown Sex and Gender Information Value Date Recorded Sex Assigned at Not on file Legal Sex Female 4:54 PM CDT Gender Identity Not on file Sexual Orientation Not on file documented as of this encounter Plan of Treatment Not on file documented as of this encounter Visit Diagnoses Not on filedocumented in this encounter
--- OUTSIDE RECORDS SUMMARY | 2024-05-21 15:07 | XMS_ITS | Encounter Summary ---
Author Organization [facility] Address [address] [place] [address]. [place], [place] [address] [place] [address] Care Team Providers Care Senior Geologist Name Role Phone Clinton Gutierrez MD Primary Care Provider [phone] Encounter Details Date Type Department Care Team (Latest Contact Info) Description 01/30/2024 Travel Social History Tobacco Use Types Packs/Day Years Used Date Smoking Tobacco: Never Smokeless Tobacco: Never Alcohol Use Standard Drinks/Week Comments Yes 0 (1 standard drink = 0.6 oz pur e alcohol) maybe once a month Comments No Sex and Gender Information Value Date Recorded Sex Assigned at Not on file Legal Sex Female 4:54 PM CDT Gender Identity Not on file Sexual Orientation Not on file documented as of this encounter Plan of Treatment Not on file documented as of this encounter Visit Diagnoses Not on filedocumented in this encounter Care Teams Senior Geologist Relationship Specialty Start Date End Date Clinton Gutierrez MD [address] [place] [address] PCP - General FAMILY PRACTICE 01/30/24 documented as of this encounter
--- OUTSIDE RECORDS SUMMARY | 2024-05-21 15:07 | XMS_ITS | Patient Health Summary ---
Author Organization [facility] Address [address] [place] [address] Care Team Providers Care Safe Deposit Attendant Name Role Phone Unavailable Primary Care Provider Unavailabl e Note from [facility],non-owned Affiliates and Associated Physician Practices is amultiple site organization consisting of ambulatory clinics and hospital sitesin [place], [place], [place] and [place]. This disclosure is being madepursuant to the Care Everywhere program and may not contain all information available regarding this patient. Last updated 18.[facility] Allergies * Erythromycin(Unknown) Immunizations * INFLUENZA VACCINE, QUADR. (FLUZONE; FLULAVAL; FLUARIX; AFLURIA QUADRIVALENT; 6MO+), 0.5 ML (IIV4)(Given 03/25/2020) Social History Tobacco Use Types Packs/Day Years Used Date Smoking Tobacco: Never Assessed Sex and Gender Information Value Date Recorded Sex Assigned at Not on file Gender Identity Not on file Sexual Orientation Not on file
--- OUTSIDE RECORDS SUMMARY | 2024-05-21 15:07 | XMS_ITS | Encounter Summary ---
Author Organization [facility] Address [address] [place] [address] Care Team Providers Care Clamp Forklift Operator Name Role Phone Unavailable Primary Care Provider Unavailabl e Encounter Details Date Type Department Care Team (Latest Contact Info) Description 03/24/2020 Travel Social History Tobacco Use Types Packs/Day Years Used Date Smoking Tobacco: Never Assessed Sex and Gender Information Value Date Recorded Sex Assigned at Not on file Gender Identity Not on file Sexual Orientation Not on file COVID-19 Exposure Response Date Recorded In the last month, have you been in contact with someone who was confirmed or suspected to have Coronavirus / COVID-19? No / Unsure 03/24/2020 6:10 PM SIGN LANGUAGE INSTRUCTOR documented as of this encounter Plan of Treatment Not on file documented as of this encounter Visit Diagnoses Not on filedocumented in this encounter
--- OUTSIDE RECORDS SUMMARY | 2024-05-21 15:07 | XMS_ITS | Encounter Summary ---
Author Organization [facility] Address [facility] [facility] [place] [address] [place] [address] Care Team Providers Care Street Car Inspector Name Role Phone Unavailable Primary Care Provider Unavailabl e Encounter Details Date Type Department Care Team (Latest Contact Info) Description 03/25/2015 Abstract [facility] Social History Tobacco Use Types Packs/Day Years Used Date Smoking Tobacco: Never Assessed Comments Unknown Sex and Gender Information Value Date Recorded Sex Assigned at Not on file Legal Sex Female 4:54 PM CDT Gender Identity Not on file Sexual Orientation Not on file documented as of this encounter Progress Notes * Generic Conversion MD Cynthia - 03/25/2015 3:52 PM CST Message Recorded as Task Date: 03/25/2015 02:55 PM, Created By: Sera Orr Task Name: Medical Complaint Callback Assigned To: [facility] Team Anna Regarding Patient: Fanny Aponte, Status: In Progress Comment: Sera Orr - 25 Mar 2015 2:55 PM TASK CREATED Caller: Self; Medical Complaint; c/o [id number] mucus, raw throat, Started last Tuesday. Allergy to erythromycin, PCN. Uses Mikel Arizmendi - 25 Mar 2015 3:43 PM TASK REASSIGNED: Previously Assigned To Mikel Castillo Doxycycline 100mg bid x 7 days Gracie Workman - 25 Mar 2015 3:51 PM TASK IN PROGRESS Message: patient notified , rx sent to pharmacy-s Plan 1. Doxycycline Hyclate 100 MG Oral Capsule; TAKE 1 CAPSULE TWICE DAILY UNTIL GONE Rx By: Mikel Castillo; Dispense: 7 Days ; #:14 Capsule; Refill: 0; For: Acute bronchitis; AMADA = N;Sent To: [facility] [id number]; Last Updated By: Gracie Workman; 03/25/2015 3:56:34 PM Signatures Electronically signed by : Gracie Workman, ; Mar 25 2015 3:56PM POT HOLDER BINDER (Author) documented in this encounter Plan of Treatment Not on file documented as of this encounter Visit Diagnoses Not on filedocumented in this encounter
--- OUTSIDE RECORDS SUMMARY | 2024-05-21 15:07 | XMS_ITS | Encounter Summary ---
Author Organization [facility] Address [address] [place] [address] Care Team Providers Care Fruit Receiver Name Role Phone Unavailable Primary Care Provider Unavailabl e Reason for Visit * Reason Comments Imm Inj Encounter Details Date Type Department Care Team (Late st Contact Info) Description 03/25/2020 9:40 AM MANAGER OF HEALTH Office Visit [facility] AT [address] [address] Provider, Sean Connolly [place] Need for vaccination (Primary Dx) Social History Tobacco Use Types Packs/Day Years [...] COVID-19? No / Unsure 03/24/2020 6:10 PM MANAGER OF HEALTH documented as of this encounter Progress Notes * Adriel Calderon APRN-NOE - 03/25/2020 9:16 AM CST Fanny Aponte is a .34 year old .female patient, here for: Chief Complaint Patient presents with ??? Imm Inj Orders Placed This Encounter ??? FLU VACCINE QUAD IIV4 SPLIT PF IM Patient tolerated without difficulty. Hemostasis achieved, and sterile band-aid placed. Immunization questionnaire scanned into the medical record. -Advised patient to keep a record of all vaccinations. (may use [facility] MyChart if desired) -May take Tylenol (acetaminophen) as needed for aches/pains per package directions. -If you develop redness, swelling at the injection site; it should resolve on its own within 5-7 days of injection. Use warm compresses as needed to the site. -Return to clinic for an evaluation if needed. -Current [facility] VIS Handout given Follow-up with your No primary care provider on file. as directed. If no PCP listed, referral offered. .REJI Vann 03/25/2020 9:21 AM GER OF HEALTH documented in this encounter Plan of Treatment Not on file documented as of this encounter Visit Diagnoses Diagnosis Need for vaccination- Primary Need for prophylactic vaccination and inoculation against unspecified single disease documented in this encounter
--- OUTSIDE RECORDS SUMMARY | 2024-05-21 15:07 | XMS_ITS | Encounter Summary ---
Author Organization [facility] Address [facility] [place], [place] [address] [place] [address] Care Team Providers Care Cane Flume Feeding Machine Operator Name Role Phone Unavailable Primary Care Provider Unavailabl e Encounter Details Date Type Department Care Team (Latest Contact Info) Description 10/07/2016 Abstract [facility] Medical Group Social History Tobacco Use Types [...]
--- OUTSIDE RECORDS SUMMARY | 2024-05-21 15:07 | XMS_ITS | Encounter Summary ---
Author Organization [facility] Address [facility]6 [facility]. [place], [place] [address] [place] [address] Care Team Providers Care Tool Maker Bench Name Role Phone Unavailable Primary Care Provider Unavailabl e Encounter Details Date Type Department Care Team (Latest Contact Info) Description 03/24/2017 Abstract [facility] Medical Group Social History Tobacco [...]
--- OUTSIDE RECORDS SUMMARY | 2024-05-21 15:07 | XMS_ITS | Clinical Summary ---
Author Organization [facility] Address [facility]6 [facility] [place] [address] [place] [address] Care Team Providers Care Senior Product Engineer Name Role Phone Clinton Gutierrez MD Primary Care Provider [phone] Allergies Active Allergy Reactions Criticality Noted Date Comments Amoxicillin-Pot Clavulanate Unknown 01/30/20 24 Penicillins Hives,Vomiting 01/30/2024 Medications naproxen (NAPROSYN) 500 MG tablet Take 1 tablet (500 mg total) by mouth 2 (two) times daily with meals. 20 tablet 01/30/2024 Active tiZANidine (ZANAFLEX) 4 MG tablet Take 1 tablet (4 mg total) by mouth every 8 (eight) hours as needed. 12 tablet 01/30/2024 Active Social History Tobacco Use Types Packs/Day Years Used Date Smoking Tobacco: Never Smokeless Tobacco: Never Tobacco Cessation:Counseling Given: Not Answered Alcohol Use Standard Drinks/Week Comments Yes 0 (1 standard drink = 0.6 oz pur e alcohol) maybe once a month Comments No Sex and Gender Information Value Date Recorded Sex Assigned at Not on file Legal Sex Female 4:54 PM CDT Gender Identity Not on file Sexual Orientation Not on file Last Filed Vital Signs Vital Sign Reading Time Taken Comments Blood Pressure 123/93 01/30/2024 12:15 PM CDT Pulse 71 01/30/2024 12:15 PM CDT Temperature 36.7 ??C (98 ??F) 01/30/2024 10:09 AM CDT Respiratory Rate 18 01/30/2024 12:15 PM CDT Oxygen Saturation 100% 01/30/2024 12:15 PM CDT Inhaled Oxygen Concentration - - Weight 102.1 kg (225 lb) 01/30/2024 10:09 AM CDT Height 162.6 cm (5' 4 ) 01/30/2024 10:09 AM CDT Body Mass Index 38.62 01/30/2024 10:09 AM CDT Plan of Treatment Health Maintenance Due Date Last Done Comments Cervical Cancer Screening Pa p Smear (Age 30 to 64) Every 3 Years 1985 Annual Physical 10/05/1990 Hepatitis C 10/05/2005 DTaP, Tdap and Td Vaccines ( 1 - Tdap) 10/05/2006 Hepatitis B Vaccines (1 of 3 - 19+ 3-dose series) 10/05/2006 Cervical Cancer Screening Pa p with HPV Testing (Age 30 to 64) Every 5 Years 10/05/2017 Cervical Cancer Screening wi HPV 10/05/2017 COVID-19 Vaccine (2023-2 5 season) 2024 08/16/2020, 07/24/2020 Influenza Adult (#1) 2024 03/25/2020 HPV Vaccines Aged Out No longer eligi ble based on patient's age to complete this topic Meningococcal Vaccine Aged Out No lionel zen eligible based on patient's age to complete this topic Pneumococcal Vaccine: Pediatrics (0 to 5 Years) and At-Risk Patients (6 to 64 Years) Aged Out No longer eligible b ased on patient's age to complete this topic RSV Immunizations Under 20 Months Aged Out No longer eligible b ased on patient's age to complete this topic Insurance [facility] Care Teams Senior Product Engineer Relationship Specialty Start Date End Date Clinton Gutierrez MD [address] [facility] [address] PCP - General FAMILY PRACTICE 01/30/24
--- OUTSIDE RECORDS SUMMARY | 2024-05-21 15:07 | XMS_ITS | Encounter Summary ---
Author Organization [facility] Address [facility]6 [facility] [place] [address] [place] [address] Care Team Providers Care Supervisor Pyrotechnic Loading Name Role Phone Unavailable Primary Care Provider Unavailabl e Encounter Details Date Type Department Care Team (Late st Contact Info) Description 07/22/2017 Abstract [facility] Medical Group Family and Sports Medicine - [address] [phone] Kael Jay MD Social History Tobacco Use Types Packs/Day Years Used Date Smoking Tobacco: Never Assessed Comments Unknown Sex and Gender Information Value Date Recorded Sex Assigned at Not on file Legal Sex Female 4:54 PM CDT Gender Identity Not on file Sexual Orientation Not on file documented as of this encounter Last Filed Vital Signs Vital Sign Reading Time Taken Comments Blood Pressure 126/80 07/22/2017 1:04 PM REVIEW CONSULTANT Pulse 80 07/22/2017 1:04 PM REVIEW CONSULTANT Temperature - - Respiratory Rate - - Oxygen Saturation - - Inhaled Oxygen Concentration - - Weight - - Height - - Body Mass Index - - documented in this encounter Progress Notes * Kael Jay MD - 07/22/2017 1:00 PM CST Reason For Visit Reason For Visit: Acute Visit Chief Complaint sore throat for 3 days History of Present Illness HPI Free Text: 31-year-old female presents to the same-day clinic with a 2 to three-day history of sore throat and mild cough. No fever, rhinorrhea, other symptoms. Review of Systems See HPI for pertinent positives. Active Problems 1. 38 weeks gestation of (V22.2) (Z3A.38) 2. Acute bronchitis (466.0) (J20.9) 3. Anxiety (300.00) (F41.9) 4. Cough, persistent (786.2) (R05) 5. Depression (311) (F32.9) 6. Migraine (346.90) (G43.909) 7. Pain in left ankle (719.47) (M25.572) 8. Pharyngitis (462) (J02.9) 9. Sinusitis (473.9) (J32.9) 10. URI (upper respiratory infection) (465.9) (J06.9) Surgical History 1. History of Oral Surgery Tooth Extraction Family History Family History 1. Family history of Allergies 2. Family history of Asthma (V17.5) 3. Family history of Cancer 4. Family history of Diabetes Mellitus (V18.0) 5. Family history of Hyperlipidemia 6. Family history of Hypertension (V17.49) Social History ?? Never a smoker Current Meds 1. ProAir HFA 108 (90 Base) MCG/ACT Inhalation Aerosol Solution; 2 PUFFS EVERY 4 HOURS PRN; Therapy: 24Aug2016 to (Last Rx:24Aug2016) Requested for: 24Aug2016 Ordered Rx By: Doe Daily; Dispense: 0 Days ; #:1 X 8.5 GM Inhaler; Refill: 0; For: URI (upper respiratory infection); AMADA = N; Verified Transmission to [employer]; Last Updated By: [employer]; 08/24/2016 2:54:10 PM 2. Symbicort 160-4.5 MCG/ACT Inhalation Aerosol; INHALE 2 PUFFS BY MOUTH TWICE DAILY; Therapy: 14Sep2016 to (Evaluate:13Nov2016) Requested for: 14Sep2016; Last Rx:14Sep2016 Ordered Rx By: Doe Daily; Dispense: 30 Days ; #:10.2 GM; Refill: 1; For: Cough, persistent; AMADA = N;Verified Transmission to [employer]; Last Updated By: Nan[employer]; 09/14/2016 4:11:07 PM Allergies 1. Erythromycin Derivatives Recorded By: Tammi Khan; 01/04/2012 9:55:43 AM 2. Penicillins Recorded By: Tammi Khan; 01/04/2012 9:55:43 AM Vitals Recorded: 22Jul2017 01:04PM Temperature 98.4 F, Oral Heart Rate 80 Systolic 126, LUE Diastolic 80, LUE O2 Saturation 99 Physical Exam Gen: Nad Heent: Mild nasal congestion. No Rhinorhea is noted. TMs are clear with no redness or bulging. Throat is mildly red with no mass or exudate. Neck: Supple. No adenopathy. Heart: RRR s MRG Lungs: CTA Skin: No rash Neuro: No gross focal neurologic deficits Results/Data rapid strep negative. culture ordered. Assessment 1. Pharyngitis (462) (J02.9) 2. Sore throat (462) (J02.9) Plan Pharyngitis 1. Group A Streptococcus Culture; Status:In Progress - Specimen/Data Collected; Done: 22Jul2017 Perform:[facility]; Due:21Aug2017; Last Updated By:Farhan Lee; 07/22/2017 1:27:28PM;Ordered; For:Pharyngitis; Ordered By:Kael Jay; Source: : Throat 1) You have an illness that is caused by a virus. Antibiotics are not indicated at this time. 2) Get plenty of rest and drink plenty of fluids. 3) Take prescribed and/or over the counter medications to help you with your symptoms as needed. 4) See your primary care physician in 2-3 days if not improving or sooner if symptoms worsen/change. 5) See any informational handouts. 6) Thank you for coming to the Same Day Clinic today. I hope that you had a good experience here today and I hope that you are feeling better very soon. Please understand that the Same Day Clinic is not a substitute for ongoing care and follow-up with your primary care physician. Please follow-up with your primary care physician as recommended and follow-up with your primary care physician for your regular check-ups/appointments. Discussion/Summary viral phayngitis: otc symptomatic rx discusssed. rapid strep negative. culture ordered. Signatures Electronically signed by : Kael Jay M.D.; Jul 22 2017 1:31PM REVIEW CONSULTANT (Author) documented in this encounter Plan of Treatment Not on file documented as of this encounter Procedures Procedure Name Priority Date/Time Associated Diagnosis Comments CULTURE STREP A Routine 07/22/2017 1:24 PM REVIEW CONSULTANT STREP A RAPID Routine 07/22/2017 1:22 PM REVIEW CONSULTANT documented in this encounter Results * CULTURE STREP A (07/22/2017 1:24 PM REVIEW CONSULTANT) THROAT CULTURE STREP A ONLY SPECIMEN DESCRIPTION ? - THROAT SPECIAL REQUESTS ? - NO SPECIAL REQUEST CULTURE ?- NO STREPTOCOCCUS PYOGENES (GROUP A) ISOLATED REPORT STATUS ?- FINAL 07/24/2017 [facility] TO EPIC CONVERSION 07/22/2017 1:24 PM REVIEW CONSULTANT 07/22/2017 1:24 PM REVIEW CONSULTANT Narrative [facility] TO EPIC CONVERSION - 07/24/2017 11:18 AM REVIEW CONSULTANT Result Communication: No patient communication needed at this time us Kael Jay MD MICROBIOLOGY - GENERAL ORDER AMANDA Final Result [facility] TO EPIC CONVERSION * STREP A RAPID (07/22/2017 1:22 PM REVIEW CONSULTANT) RAPID STREP TEST Presumptive Negative [facility] TO EPIC CONVERSION Internal Control: Yes [facility] TO EPIC CONVERSION 07/22/2017 1:22 PM REVIEW CONSULTANT 07/22/2017 1:22 PM REVIEW CONSULTANT Narrative [facility] TO EPIC CONVERSION - 07/22/2017 1:21 PM REVIEW CONSULTANT Result Communication: No patient communication needed at this time Kael Jay MD MICROBIOLOGY - GENERAL ORDER AMANDA Final Result [facility] TO EPIC CONVERSION documented in this encounter Visit Diagnoses Not on filedocumented in this encounter
--- OUTSIDE RECORDS SUMMARY | 2024-05-21 15:07 | XMS_ITS | Encounter Summary ---
Author Organization [facility] Address [facility]6 [facility] [place] [address] [place] [address] Care Team Providers Care Flame Hardening Machine Operator Name Role Phone Unavailable Primary Care Provider Unavailabl e Encounter Details Date Type Department Care Team (Latest Contact Info) Description 09/13/2016 Abstract [facility] Medical Group Social History Tobacco Use Types Packs/Day Years Used Date Smoking Tobacco: Never Assessed Comments Unknown Sex and Gender Information Value Date Recorded Sex Assigned at Not on file Legal Sex Female 4:54 PM CDT Gender Identity Not on file Sexual Orientation Not on file documented as of this encounter Progress Notes * Generic Conversion MD Cynthia - 09/13/2016 12:48 PM CDT Message Recorded as Task Date: 09/13/2016 10:37 AM, Created By: Padmaja Lincoln Task Name: Medical Complaint Callback Assigned To: [facility] Team Killian Regarding Patient: Fanny Aponte, Status: In Progress Comment: Padmaja Lincoln - 13 Sep 2016 10:37 AM TASK CREATED Caller: Self; Medical Complaint; pt still has a cough and left side pain from bronchitis any reccomendations Gracie Workman - 13 Sep 2016 11:22 AM TASK REASSIGNED: Previously Assigned To [facility] Team Doe Natarajan - 13 Sep 2016 11:53 AM TASK REASSIGNED: Previously Assigned To Doe Daily Is she feeling ill or sick? To start with, we really should do a chest x-ray to make sure everything looks good. Garcie Workman - 13 Sep 2016 12:47 PM TASK IN PROGRESS Message: patient notified -sjs Plan 1. XR CHEST 2 VIEW ( Routine ); Status:Active; Requested for:13Sep2016; Perform:Other Radiology; Due:[id number];Ordered; For:Cough, persistent; Ordered By:Doe Daily; Signatures Electronically signed by : Gracie Workman MA; Sep 13 2016 12:49PM C SOFTWARE DEVELOPER (Author) documented in this encounter Plan of Treatment Not on file documented as of this encounter Visit Diagnoses Not on filedocumented in this encounter
--- OUTSIDE RECORDS SUMMARY | 2024-05-21 15:07 | XMS_ITS | Referral Summary ---
Author Organization [facility] Address [address] [place] [address] Care Team Providers Care Tire Regrooving Machine Operator Name Role Phone Unavailable Primary Care Provider Unavailabl e Source Comments [facility],non-owned Affiliates and Associated Physician Practices is amultiple site organization consisting of ambulatory clinics and hospital sitesin [place], [place], [place] and [place]. This disclosure is being madepursuant to the Care Everywhere program and may not contain all information available regarding this patient. Last updated 18.[facility] [employer] Allergies Active Allergy Reactions Criticality Noted Date Comments Erythromycin Unknown 03/25/2020 Immunizations Name Administration Dates Next Due INFLUENZA VACCINE, QUADR. (F LUZONE; FLULAVAL; FLUARIX; AFLURIA QUADRIVALENT; 6MO+), 0.5 ML (IIV4) 03/25/2020 Social History Tobacco Use Types Packs/Day Years Used Date Smoking Tobacco: Never Assessed Sex and Gender Information Value Date Recorded Sex Assigned at Not on file Gender Identity Not on file Sexual Orientation Not on file Plan of [place] [address] Fanny Aponte Personal/Family Self 1985 ([place]) [facility] [place] [address]
--- OUTSIDE RECORDS SUMMARY | 2024-05-21 15:07 | XMS_ITS | Clinical Summary ---
Author Organization [facility] Address [address] [place] [address] Care Team Providers Care Production Shift Supervisor Name Role Phone Unavailable Primary Care Provider Unavailabl e Source Comments [facility],non-owned Affiliates and Associated Physician Practices is amultiple site organization consisting of ambulatory clinics and hospital sitesin [place], [place], [place] and [place]. This disclosure is being madepursuant to the Care Everywhere program and may not contain all information available regarding this patient. Last updated 18.[facility] [employer] Allergies Active Allergy Reactions Criticality Noted Date [...] Orientation Not on file Plan of Treatment Health Maintenance Due Date Last Done Comments PAP SMEAR 1985 HIV SCREENING 10/05/2002 HEPATITIS C SCREENING 10/01/2005 DTAP/TDAP/TD VACCINES (1 - Tdap) 10/05/2006 HEPATITIS B VACCINE (1 of 3 - 19+ 3-dose series) 10/05/2006 DEPRESSION SCREENING 05/23/2023 COVID-19 VACCINE (1 - 2023-2 5 season) 2024 INFLUENZA VACCINE (#1) 2024 03/25/2020 ZOSTER VACCINE (1 of 2) 10/05/2037 HIB VACCINE Aged Out No longer eligi ble based on patient's age to complete this topic HPV VACCINE Aged Out No longer eligi ble based on patient's age to complete this topic MENINGOCOCCAL VACCINE Aged Out No lionel zen eligible based on patient's age to complete this topic PNEUMOCOCCAL VACCINE Aged Out No long er eligible based on patient's age [place] [address] Fanny Aponte Personal/Family Self 1985 [facility] [place] [address]
--- OUTSIDE RECORDS SUMMARY | 2024-05-21 15:07 | XMS_ITS | Encounter Summary ---
Author Organization [facility] Address [facility]. [place], [place] [id number] [place] [address] Care Team Providers Care Hyperion Administrator Name Role Phone Unavailable Primary Care Provider Unavailabl e Encounter Details Date Type Department Care Team (Late st Contact Info) Description 07/22/2017 Orders Only [facility] [place] [address] Kael Jay MD Social History Tobacco Use Types Packs/Day Years Used Date Smoking Tobacco: Never Assessed Comments Unknown Sex and Gender Information Value Date Recorded Sex Assigned at Not on file Legal Sex Female 4:54 PM CDT Gender Identity Not on file Sexual Orientation Not on file documented as of this encounter Plan of Treatment Not on file documented as of this encounter Results * CULTURE STREP A (07/22/2017 1:24 PM APPLE PACKING HEADER) SPEC DESCRIPTION THROAT 07/22/2017 7:45 PM APPLE PACKING HEADER [facility] SPECIAL REQUESTS NO SPECIAL REQUEST 07/22/2017 7:45 PM APPLE PACKING HEADER [facility] CULTURE RESULT NO STREPTOCOCCUS PYOGENES (GROUP A) ISOLATED 07/24/2017 11:18 AM APPLE PACKING HEADER [facility] THROAT SWAB / Unknown 07/22/2017 1:24 PM APPLE PACKING HEADER 07/22/2017 7:46 PM APPLE PACKING HEADER us Kael Jay MD MICROBIOLOGY - GENERAL ORDER AMANDA Final Result [facility] [address] [facility] [place] [address], documented in this encounter Visit Diagnoses Diagnosis Acute pharyngitis documented in this encounter
--- OUTSIDE RECORDS SUMMARY | 2024-05-21 15:07 | XMS_ITS | Encounter Summary ---
Author Organization [facility] Address [facility] [place] [address] [place] [address] Care Team Providers Care Bass Fisher Name Role Phone Unavailable Primary Care Provider Unavailabl e Encounter Details Date Type Department Care Team (Late st Contact Info) Description 04/25/2013 Abstract [facility] Medical [facility] Family & Internal Medicine [address] [phone] Mikel Castillo MD [address] [place] [id number] Social History Tobacco Use Types Packs/Day Years Used Date Smoking Tobacco: Never Assessed Comments Unknown Sex and Gender Information Value Date Recorded Sex Assigned at Not on file Legal Sex Female 4:54 PM CDT Gender Identity Not on file Sexual Orientation Not on file documented as of this encounter Last Filed Vital Signs Vital Sign Reading Time Taken Comments Blood Pressure 133/89 04/25/2013 12:21 PM OPTICAL LATHE OPERATOR Pulse 84 04/25/2013 12:21 PM OPTICAL LATHE OPERATOR Temperature - - Respiratory Rate - - Oxygen Saturation - - Inhaled Oxygen Concentration - - Weight 88.9 kg (196 lb) 04/25/2013 12:21 PM OPTICAL LATHE OPERATOR Height 162.6 cm (5' 4 ) 04/25/2013 12:21 PM OPTICAL LATHE OPERATOR Body Mass Index 33.64 04/25/2013 12:21 PM OPTICAL LATHE OPERATOR documented in this encounter Progress Notes * Mikel Castillo MD - 04/25/2013 12:15 PM CST Reason For Visit Reason For Visit: Acute Visit Chief Complaint Chief Complaint Free Text: c/o noticed abscess on bravo of left leg yesterday, put warm cloth on it and opened and drained, then today noticed another area above it, started vomiting yesterday and hasn't been able to keep anything down, did end up in hospital in november w/ abscess on right bravo and doesn't want to end up there again- did recently have positive home test as well History of Present Illness HPI Free Text: She has an abscess on her right leg. 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 She noticed this area a couple of days ago. She has not had any drainage from the region, but it is very sore to touch. She does not want this to get like last time. Review of Systems Focused-Female: Constitutional: Normal. ENT: normal. Cardiovascular: Normal. Respiratory: Normal. Gastrointestinal: Normal. Genitourinary: Normal. Integumentary: Normal. Musculoskeletal: Normal. Neurological: Normal. Psychiatric: Normal. Active Problems 1. Anxiety 300.00 2. Depression 311 Surgical History 1. History of Oral Surgery Tooth Extraction Family History 1. Family history of Allergies 2. Family history of Asthma V17.5 3. Family history of Cancer 4. Family history of Diabetes Mellitus V18.0 5. Family history of Hyperlipidemia 6. Family history of Hypertension V17.49 Social History ?? Never A Smoker Current Meds 1. No Reported Medications Allergies 1. Erythromycin Derivatives 2. Penicillins Vitals Vital Signs [Data Includes: Current Encounter] [id number] 12:21PM Heart Rate 84 Respiration 16 Systolic 133 Diastolic 89 BMI Calculated 33.46 BSA Calculated 1.94 Height 5 ft 4 in Weight 196 lb Physical Exam Constitutional General appearance: No acute distress, well appearing and well nourished. Pulmonary Respiratory effort: No increased work of breathing or signs of respiratory distress. Auscultation of lungs: Clear to auscultation. Cardiovascular Palpation of heart: Normal PMI, no thrills. Auscultation of heart: Normal rate and rhythm, normal S1 and S2, without murmurs. Skin Skin and subcutaneous tissue: Abnormal. 1.5cm area of induration on the left thigh with a central area of fluctuance. No drainage is noted. Results/Data 1 WEEKS Results Wound Culture / Stain [id number] 01:18PM Mikel Castillo Test Name Result Flag Reference SPECIMEN DESCRIPTION - WOUND SPECIAL REQUESTS - LEFT BRAVO GRAM SMEAR - FEW WHITE BLOOD CELLS SEEN GRAM SMEAR - NO ORGANISMS SEEN CULTURE - MODERATE GROWTH OF METHICILLIN RESISTANT STAPH AUREUS FOLLOW ISOLATION PROTOCOL. CULTURE - NOTE: WOUND AND TISSUE CULTURES ARE ROUTINELY SCREENED FOR AEROBIC ORGANISMS CULTURE - ONLY. REPORT STATUS - FINAL 04/28/2013 ORGANISM - MODERATE GROWTH OF METHICILLIN RESISTANT STAPH AUREUS FOLLOW ISOLATION PROTOCOL. METHOD - JOSE RAUL CLINDAMYCIN - <=0.25 SUSCEPTIBLE ERYTHROMYCIN - <=0.25 SUSCEPTIBLE OXACILLIN - >=4 RESISTANT TETRACYCLINE - <=1 SUSCEPTIBLE BACTRIM - <=10 SUSCEPTIBLE VANCOMYCIN - <=0.5 SUSCEPTIBLE LEVOFLOXACIN - 4 RESISTANT Procedure PROCEDURE: Incision and Drainage Incision and Drainage of an abscess. Risks and benefits were discussed with the patient. Verbal consent was obtained prior to the procedure. The site was prepped with Alcohol. Anesthesia: None The area was incised with a #11 blade. A small amount of fluid was drained. Dressing: a sterile dressing was placed. The patient tolerated the procedure well. There were no complications. Follow-up in the office. As needed. Assessment 1. Skin Abscess Of The Left Leg 682.6 Plan 1. Mupirocin Calcium 2 % External Cream; Apply to bilateral nares bid x 5 days; Therapy: [id number] to (Last Rx:[id number]) Requested for: [id number]; Edited Ordered; For: Skin Abscess Of The Left Leg (682.6); Rx By: Mikel Castillo; Dispense: 0 Days ; #:1 X30 GM Tube; Refill: 0; Verified Transmission to [id number] 2. Wound Culture / Stain Done: [id number] 01:18PM Ordered; For: Skin Abscess Of The Left Leg (682.6); Ordered By: Mikel Castillo Performed: [facility] Due: [id number]; Last Updated By: Nedra Magana Signatures Electronically signed by : Mikel Castillo M.D.; Apr 29 2013 8:52PM (Author) CAL LATHE OPERATOR documented in this encounter Plan of Treatment Not on file documented as of this encounter Procedures Procedure Name Priority Date/Time Associated Diagnosis Comments CULTURE, WOUND, W/GRAM STAIN Routine 04/25/2013 1:18 PM OPTICAL LATHE OPERATOR documented in this encounter Results * CULTURE, WOUND, W/GRAM STAIN (04/25/2013 1:18 PM OPTICAL LATHE OPERATOR) CULTURE RESULT SPECIMEN DESCRIPTION ? - WOUND SPECIAL REQUESTS ? - LEFT BRAVO GRAM SMEAR ? - FEW WHITE BLOOD CELLS SEEN GRAM SMEAR ? - NO ORGANISMS SEEN CULTURE ?- MODERATE GROWTH OF METHICILLIN RESISTANT STAPH AUREUS FOLLOW ISOLATION PROTOCOL. CULTURE ?- NOTE: WOUND AND TISSUE CULTURES ARE ROUTINELY SCREENED FOR AEROBIC ORGANISMS CULTURE ?- ??ONLY. REPORT STATUS ?- FINAL 04/28/2013 ORGANISM ? - MODERATE GROWTH OF METHICILLIN RESISTANT STAPH AUREUS FOLLOW ISOLATION PROTOCOL. METHOD ? - JOSE RAUL CLINDAMYCIN ?- <=0.25 SUSCEPTIBLE ERYTHROMYCIN ? - <=0.25 SUSCEPTIBLE OXACILLIN ?- >=4 RESISTANT TETRACYCLINE ? - <=1 SUSCEPTIBLE BACTRIM ?- <=10 SUSCEPTIBLE VANCOMYCIN ? - <=0.5 SUSCEPTIBLE LEVOFLOXACIN ? - 4 RESISTANT [facility] TO EPIC CONVERSION 04/25/2013 1:18 PM OPTICAL LATHE OPERATOR 04/25/2013 1:18 PM OPTICAL LATHE OPERATOR Narrative [facility] TO EPIC CONVERSION - 04/28/2013 8:32 AM OPTICAL LATHE OPERATOR Result Communication: Call patient with results us Mikel Castillo MD MICROBIOLOGY - GENERAL ORDERAB LES Final Result [facility] TO EPIC CONVERSION documented in this encounter Visit Diagnoses Not on filedocumented in this encounter
--- OUTSIDE RECORDS SUMMARY | 2024-05-21 15:07 | XMS_ITS | Encounter Summary ---
Author Organization [facility] Address [address] [facility] [place] [address] [place] [address] Care Team Providers Care Butcher Apprentice Name Role Phone Unavailable Primary Care Provider Unavailabl e Encounter Details Date Type Department Care Team (Late st Contact Info) Description 11/30/2013 Abstract [facility] Medical Group Family & Internal Medicine [address] [phone] Doe Daily MD Social History Tobacco Use Types Packs/Day Years Used Date Smoking Tobacco: Never Assessed Comments Unknown Sex and Gender Information Value Date Recorded Sex Assigned at Not on file Legal Sex Female 4:54 PM CDT Gender Identity Not on file Sexual Orientation Not on file documented as of this encounter Last Filed Vital Signs Vital Sign Reading Time Taken Comments Blood Pressure 138/92 11/30/2013 12:27 PM CDT Pulse 88 11/30/2013 12:27 PM CDT Temperature - - Respiratory Rate - - Oxygen Saturation - - Inhaled Oxygen Concentration - - Weight 101.6 kg (224 lb) 11/30/2013 12:27 PM CDT Height 162.6 cm (5' 4 ) 11/30/2013 12:27 PM CDT Body Mass Index 38.45 11/30/2013 12:27 PM CDT documented in this encounter Progress Notes * Doe Daily MD - 11/30/2013 12:15 PM CDT Reason For Visit Reason For Visit: Acute Visit Chief Complaint Left ankle swelling and popping when she is on it for a long period of time, she is currently 38 weeks . No complications. History of Present Illness Here complaining of several weeks of swelling and popping in her left ankle. It is worse with increased activity or prolonged standing. She has no specific injury. She is not taking anything for it since she is 38 weeks . Review of Systems See HPI for pertinent positives. Integumentary: no skin rash. Musculoskeletal: joint swelling, joint pain and joint stiffness. Neurological: difficulty walking, but no limb weakness. Active Problems 1. 38 weeks gestation of (V22.2) (Z3A.38) 2. Anxiety (300.00) (F41.9) 3. Depression (311) (F32.9) Past Medical History 1. History of Oral Surgery Tooth Extraction Surgical History Patient indicates no past surgical history. Family History Family History 1. Family history of Allergies 2. Family history of Asthma (V17.5) 3. Family history of Cancer 4. Family history of Diabetes Mellitus (V18.0) 5. Family history of Hyperlipidemia 6. Family history of Hypertension (V17.49) Social History ?? Never a smoker Current Meds 1. Vitamins TABS; Therapy: (Recorded:[id number]) to Recorded Dispense: 0 Days ; #: Sufficient TABS; Refill: 0; AMADA = N; Record; Last Updated By: Nain Cruz; 11/30/2013 12:29:06 PM Allergies 1. Erythromycin Derivatives Recorded By: Tammi Khan; 01/04/2012 9:55:43 AM 2. Penicillins Recorded By: Tammi Khan; 01/04/2012 9:55:43 AM Vitals Vital Signs [Data Includes: Current Encounter] Recorded by : Nain Cruz at [id number] 12:27PM Heart Rate 88 Respiration 16 Systolic 138 Diastolic 92 O2 Saturation 99 Height 5 ft 4 in Weight 224 lb BMI Calculated 38.45 BSA Calculated 2.05 Physical Exam Constitutional General appearance: No acute distress, well appearing and well nourished. Cardiovascular Examination of extremities for edema and/or varicosities: Normal. Musculoskeletal Gait and station: Normal. Inspection/palpation of joints, bones, and muscles: Abnormal. There is no deformity on visual inspection of the left ankle. Range of motion is normal. Area of discomfort is anterior and lateral consistent with the ankle joint itself. Assessment 1. Pain in left ankle (719.47) (M25.572) Plan She will avoid particularly uncomfortable activities and wait for baby to be delivered. If her painand swelling persist after delivery, she will let us know and we will start an investigation. Signatures Electronically signed by : Doe Daily M.D.; Dec 03 2013 6:47AM TUBE BALANCER (Author) documented in this encounter Plan of Treatment Not on file documented as of this encounter Visit Diagnoses Not on filedocumented in this encounter
--- OUTSIDE RECORDS SUMMARY | 2024-05-21 15:07 | XMS_ITS | Encounter Summary ---
Author Organization [facility] Address [facility] [facility] [place] [address] [place] [address] Care Team Providers Care Solutions Executive Security Name Role Phone Unavailable Primary Care Provider Unavailabl e Encounter Details Date Type Department Care Team (Latest Contact Info) Description 12/05/2014 Abstract [facility] Medical Group Social History Tobacco Use Types Packs/Day Years Used Date Smoking Tobacco: Never Assessed Comments Unknown Sex and Gender Information Value Date Recorded Sex Assigned at Not on file Legal Sex Female 4:54 PM CDT Gender Identity Not on file Sexual Orientation Not on file documented as of this encounter Progress Notes * Generic Conversion MD Cynthia - 12/05/2014 10:30 AM CDT Message Recorded as Task Date: 12/05/2014 08:27 AM, Created By: Sera Orr Task Name: Medical Complaint Callback Assigned To: [facility] [place] [place] Killian Regarding Patient: Fanny Aponte, Status: In Progress Comment: Sera Orr - 05 Dec 2014 8:27 AM TASK CREATED Caller: Self; Medical Complaint; c/o white pus pockets in throat, previous fever, sore throat, pain with swallowing, started Tuesday. Allergy to PCN, erythromycin. Uses [facility] Doe Daily - 05 Dec 2014 9:15 AM TASK REASSIGNED: Previously Assigned To Doe Daily Keflex 500 mg t.i.d. x10 days Gracie Workman - 05 Dec 2014 10:19 AM TASK IN PROGRESS Message: patient notified, rx sent to pharmacy -s Plan 1. Cephalexin 500 MG Oral Capsule; TAKE 1 CAPSULE 3 TIMES DAILY UNTIL GONE Rx By: Doe Daily; Dispense: 10 Days ; #:30 Capsule; Refill: 0; For: URI (upper respiratory infection); AMADA = N; Verified Transmission to [facility] [id number]; Last Updated By: Cuca Nelson; 12/05/2014 10:38:28 AM Signatures Electronically signed by : Gracie Workman, ; Dec 05 2014 12:23PM FURNACE OPERATOR (Author) documented in this encounter Plan of Treatment Not on file documented as of this encounter Visit Diagnoses Not on filedocumented in this encounter
--- OUTSIDE RECORDS SUMMARY | 2024-05-21 15:07 | XMS_ITS | Encounter Summary ---
Author Organization [facility] Address [facility] [facility] [place] [address] [place] [address] Care Team Providers Care Architectural Drafter Name Role Phone Unavailable Primary Care Provider Unavailabl e Encounter Details Date Type Department Care Team (Latest Contact Info) Description 02/10/2016 Abstract [facility] Medical Group Social History Tobacco Use Types Packs/Day Years Used Date Smoking Tobacco: Never Assessed Comments Unknown Sex and Gender Information Value Date Recorded Sex Assigned at Not on file Legal Sex Female 4:54 PM CDT Gender Identity Not on file Sexual Orientation Not on file documented as of this encounter Progress Notes * Generic Conversion MD Cynthia - 02/10/2016 1:08 PM CDT Message Recorded as Task Date: 02/10/2016 08:37 AM, Created By: Sera Orr Task Name: Medical Complaint Callback Assigned To: [facility] [place] Killian Regarding Patient: Fanny Aponte, Status: In Progress Comment: Sera Orr - 10 Feb 2016 8:37 AM TASK CREATED Caller: Self; Medical Complaint; c/o sore throat, painful swallowing, started last night now having dry cough. 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 x10 days Gracie Workman - 10 Feb 2016 1:07 PM TASK IN PROGRESS Message: patient notified , rx sent to pharmacy -s Plan 1. Cephalexin 500 MG Oral Capsule; TAKE 1 CAPSULE TWICE DAILY UNTIL GONE Rx By: Doe Daily; Dispense: 10 Days ; #:20 Capsule; Refill: 0; For: URI (upper respiratory infection); AMADA = N; Sent To: [facility] # [id number]; Last Updated By: Gracie Workman; 02/10/2016 1:09:58 PM Signatures Electronically signed by : Gracie Workman MA; Feb 10 2016 1:10PM PRESS OPERATOR HELPER (Author) documented in this encounter Plan of Treatment Not on file documented as of this encounter Visit Diagnoses Not on filedocumented in this encounter
--- OUTSIDE RECORDS SUMMARY | 2024-05-21 15:07 | XMS_ITS | Encounter Summary ---
Author Organization [facility] Address [facility] [place] [address] [place] [address] Care Team Providers Care Classified Ad Taker Name Role Phone Unavailable Primary Care Provider Unavailabl e Encounter Details Date Type Department Care Team (Latest Contact Info) Description 02/13/2015 Abstract [facility] Medical Group Social History Tobacco Use Types Packs/Day Years Used Date Smoking Tobacco: Never Assessed Comments Unknown Sex and Gender Information Value Date Recorded Sex Assigned at Not on file Legal Sex Female 4:54 PM CDT Gender Identity Not on file Sexual Orientation Not on file documented as of this encounter Progress Notes * Generic Conversion MD Cynthia - 02/13/2015 3:37 PM CDT Message Recorded as Task Date: 02/13/2015 01:24 PM, Created By: Sera Orr Task Name: Medical Complaint Callback Assigned To: [facility] Team Killian Regarding Patient: Fanny Aponte, Status: Active Comment: Sera Orr - 13 Feb 2015 1:24 PM TASK CREATED Caller: Self; Medical Complaint; finished levofloxin on Tuesday, has had no improvement in symptoms since 02/03, not worse but not better. Allergy to eryth, PCN Uses Doe Moore - 13 Feb 2015 2:29 PM TASK REASSIGNED: Previously Assigned To Doe Daily Keflex 500 mg t.i.d. x10 days Plan 1. Cephalexin 500 MG Oral Capsule; TAKE 1 CAPSULE 3 TIMES DAILY Rx By: Doe Daily; Dispense: 10 Days ; #:30 Capsule; Refill: 0; For: URI (upper respiratory infection); AMADA = N; Sent To: [facility] [id number]; Last Updated By: Kimberly Rose Signatures Electronically signed by : Kimberly Rose, ; Feb 13 2015 3:38PM LABEL PRINTER (Author) documented in this encounter Plan of Treatment Not on file documented as of this encounter Visit Diagnoses Not on filedocumented in this encounter
--- OUTSIDE RECORDS SUMMARY | 2024-05-21 15:07 | XMS_ITS | Encounter Summary ---
Author Organization [facility] Address [facility] [facility] [place] [address] [place] [address] Care Team Providers Care Advertising Representative Name Role Phone Unavailable Primary Care Provider Unavailabl e Encounter Details Date Type Department Care Team (Latest Contact Info) Description 07/22/2017 7:44 PM CASH REGISTER BALANCER - 07/22/2017 11:59 PM CASH REGISTER BALANCER Hospital Encounter [facility] [place] [address] Kael Jay MD Discharge Disposition: Home or Self Care (Routine Discharge) Social History Tobacco Use Types Packs/Day Years [...] CULTURE STREP A Routine 07/22/2017 1:24 PM CASH REGISTER BALANCER Acute pharyngitis documented in this encounter Results * CULTURE STREP A (07/22/2017 1:24 PM CASH REGISTER BALANCER) SPEC DESCRIPTION THROAT 07/22/2017 7:45 PM CASH REGISTER BALANCER [facility] SPECIAL REQUESTS NO SPECIAL REQUEST 07/22/2017 7:45 PM [facility] CULTURE RESULT NO STREPTOCOCCUS PYOGENES (GROUP A) ISOLATED 07/24/2017 11:18 AM [facility] THROAT SWAB / Unknown 07/22/2017 1:24 PM CASH REGISTER BALANCER 07/22/2017 7:46 PM CASH REGISTER BALANCER us Kael Jay MD MICROBIOLOGY - GENERAL ORDER AMANDA Final Result [facility] [address] [place] [address], documented in this encounter Visit Diagnoses Diagnosis Acute pharyngitis documented in this encounter
--- OUTSIDE RECORDS SUMMARY | 2024-05-21 15:07 | XMS_ITS | Encounter Summary ---
Author Organization [facility] Address [facility] [facility] [place] [address] [place] [address] Care Team Providers Care Take Up Supervisor Name Role Phone Unavailable Primary Care Provider Unavailabl e Encounter Details Date Type Department Care Team (Latest Contact Info) Description 05/09/2015 Abstract [facility] Medical Group Social History Tobacco Use Types Packs/Day Years Used Date Smoking Tobacco: Never Assessed Comments Unknown Sex and Gender Information Value Date Recorded Sex Assigned at Not on file Legal Sex Female 4:54 PM CDT Gender Identity Not on file Sexual Orientation Not on file documented as of this encounter Progress Notes * Generic Conversion MD Cynthia - 05/09/2015 11:48 AM CST Message Recorded as Task Date: 05/09/2015 10:49 AM, Created By: Sera Orr Task Name: Medical Complaint Callback Assigned To: [facility] [place] Team Killian Regarding Patient: Fanny Aponte, Status: In Progress Comment: Sera Orr - 09 May 2015 10:49 AM TASK CREATED Caller: Self; Medical Complaint; c/o sore throat, white spots in throat, congestion, drainage, coughing-sometimes productive with clear mucus, body aches, started yesterday. Allergy to PCN, [facility]. [facility] - 09 May 2015 11:30 AM TASK REASSIGNED: Previously Assigned To Doe Daily Keflex 500 mg t.i.d. x7 days Jessie Jj - 09 May 2015 11:47 AM TASK IN PROGRESS Message: PT NOTIFIED, RX SENT--NK Plan 1. Cephalexin 500 MG Oral Capsule (Keflex); TAKE 1 CAPSULE 3 TIMES DAILY UNTIL GONE Rx By: Doe Daily; Dispense: 7 Days ; #:21 Capsule; Refill: 0; For: URI (upper respiratory infection); AMADA = N; Sent To: [facility] [id number]; Last Updated By: Jessie Jj; 05/09/2015 11:49:21 AM Signatures Electronically signed by : Jessie Jj, ; May 09 2015 11:49AM ELECTRICAL ENGINEERING MANAGER (Author) documented in this encounter Plan of Treatment Not on file documented as of this encounter Visit Diagnoses Not on filedocumented in this encounter
--- OUTSIDE RECORDS SUMMARY | 2024-05-21 15:07 | XMS_ITS | Encounter Summary ---
Author Organization [facility] Address [facility] [place] [address] [place] [address] Care Team Providers Care Liquor Department Manager Name Role Phone Unavailable Primary Care Provider Unavailabl e Encounter Details Date Type Department Care Team (Late st Contact Info) Description 03/23/2017 Abstract [facility] Family & Internal Medicine [address] [phone] Doe Daily MD Social History Tobacco Use [...] Sign Reading Time Taken Comments Blood Pressure 117/73 03/23/2017 8:46 AM CDT Pulse 98 03/23/2017 8:46 AM CDT Temperature - - Respiratory Rate - - Oxygen Saturation - - Inhaled Oxygen Concentration - - Weight 102.1 kg (225 lb) 03/23/2017 8:46 AM CDT Height 162.6 cm (5' 4 ) 03/23/2017 8:46 AM CDT Body Mass Index 38.62 03/23/2017 8:46 AM CDT documented in this encounter Progress Notes * Doe Daily MD - 03/23/2017 8:20 AM CDT History of Present Illness HM, Adult Female: The patient is being seen for a health maintenance evaluation. The last health maintenance visit was 2 year(s) ago. General Health: The patient's health since the last visit is described as good. She has regular dental visits. She denies vision problems. She denies hearing loss. Immunizations status: up to date. Lifestyle:. She consumes a diverse and healthy diet. She does not have any weight concerns. She does not exercise regularly. She does not use tobacco. She denies alcohol use. She denies drug use. Reproductive health:. she reports normal menses. she is sexually active. Screening: cancer screening reviewed and current. metabolic screening reviewed and current. risk screening reviewed and current. HPI: Here for routine physical. She has no ongoing complaints. She continues [id number] medicines for her allergies. Her moods are good on her current therapy. Review of Systems See HPI for pertinent positives. Constitutional: no malaise and no fatigue. Cardiovascular: no chest pain, no lower extremity edema and no palpitations. Respiratory: no shortness of breath, no cough and no wheezing. Gastrointestinal: no abdominal pain, no nausea, no vomiting and no diarrhea. Genitourinary: no dysuria. Active Problems 1. 38 weeks gestation of (V22.2) (Z3A.38) 2. Acute bronchitis (466.0) (J20.9) 3. Anxiety (300.00) (F41.9) 4. Cough, persistent (786.2) (R05) 5. Depression (311) (F32.9) 6. Migraine (346.90) (G43.909) 7. Pain in left ankle (719.47) (M25.572) 8. Pharyngitis (462) (J02.9) 9. Sinusitis (473.9) (J32.9) 10. URI (upper respiratory infection) (465.9) (J06.9) Surgical History ?? History of Oral Surgery Tooth Extraction Family History Family History ?? Family history of Allergies ?? Family history of Asthma (V17.5) ?? Family history of Cancer ?? Family history of Diabetes Mellitus (V18.0) ?? Family history of Hyperlipidemia ?? Family history of Hypertension (V17.49) Social History [...] infection); AMADA = N; Verified Transmission to [facility]; Last Updated By: Tego; 08/24/2016 2:54:10 PM 2. Symbicort 160-4.5 MCG/ACT Inhalation Aerosol; INHALE 2 PUFFS BY MOUTH TWICE DAILY; Therapy: [id number] to (Evaluate:13Nov2016) Requested for: [id number]; Last Rx:[id number] Ordered Rx By: Doe Daily; Dispense: 30 Days ; #:10.2 GM; Refill: 1; For: Cough, persistent; AMADA = N;Verified Transmission to [facility]; Last Updated By: Tego; 09/14/2016 4:11:07 PM Allergies 1. Erythromycin Derivatives Recorded By: Tammi Khan; 01/04/2012 9:55:43 AM 2. Penicillins Recorded By: Tammi Khan; 01/04/2012 9:55:43 AM Vitals Recorded: 23Mar2017 08:46AM Heart Rate 98 Respiration 17 Systolic 117 Diastolic 73 O2 Saturation 98 Height 5 ft 4 in Weight 225 lb BMI Calculated 38.62 BSA Calculated 2.06 Physical Exam Constitutional General appearance: No acute distress, well appearing and well nourished. Eyes Conjunctiva and lids: No swelling, erythema or discharge. Pupils and irises: Equal, round and reactive to light. Ears, Nose, Mouth, and Throat External inspection of ears and nose: Normal. Otoscopic examination: Tympanic membranes translucent with normal light reflex. Canals patent without erythema. Oropharynx: Normal with no erythema, edema, exudate or lesions. Pulmonary Respiratory effort: No increased work of breathing or signs of respiratory distress. Auscultation of lungs: Clear to auscultation. Cardiovascular Auscultation of heart: Normal rate and rhythm, normal S1 and S2, without murmurs. Examination of extremities for edema and/or varicosities: Normal. Abdomen Abdomen: Non-tender, no masses. Liver and spleen: No hepatomegaly or splenomegaly. Lymphatic Palpation of lymph nodes in neck: No lymphadenopathy. Musculoskeletal Gait and station: Normal. Digits and nails: Normal without clubbing or cyanosis. Psychiatric Orientation to person, place, and time: Normal. Mood and affect: Normal. Assessment 1. Encounter for preventive health examination (V70.0) (Z00.00) Plan No restrictions. Signatures Electronically signed by : Doe Daily M.D.; Mar 24 2017 4:36AM CORONER FORENSIC TECHNICIAN (Author) * Doe Daily MD - 03/23/2017 8:20 AM CDT Chief Complaint Needs v/stol landing signal officer physical. Active Problems 1. 38 weeks gestation of [...] 2 PUFFS EVERY 4 HOURS PRN; Therapy: [id number] to (Last Rx:[id number]) Requested for: 24Aug2016 Ordered 2. Symbicort 160-4.5 MCG/ACT Inhalation Aerosol; INHALE 2 PUFFS BY MOUTH TWICE DAILY; Therapy: [id number] to (Evaluate:13Nov2016) Requested for: 14Sep2016; Last Rx:[id number] Ordered Allergies 1. Erythromycin Derivatives 2. Penicillins Vitals Recorded: 23Mar2017 08:46AM Heart Rate 98 Respiration 17 Systolic 117 Diastolic 73 O2 Saturation 98 Height 5 ft 4 in Weight 225 lb BMI Calculated 38.62 BSA Calculated 2.06 Assessment 1. Encounter for preventive health examination (V70.0) (Z00.00) Signatures Electronically signed by : Doe Daily M.D.; Mar 24 2017 4:37AM CORONER FORENSIC TECHNICIAN (Author) documented in this encounter Plan of Treatment Not on file documented as of this encounter Visit Diagnoses Not on filedocumented in this encounter
--- OUTSIDE RECORDS SUMMARY | 2024-05-21 15:07 | XMS_ITS | Encounter Summary ---
Author Organization [facility] Address [facility] [place] [address] [place] [address] Care Team Providers Care Manager Of Learning Name Role Phone Unavailable Primary Care Provider Unavailabl e Encounter Details Date Type Department Care Team (Latest Contact Info) Description 06/01/2016 Abstract [facility] Social History Tobacco Use Types Packs/Day Years Used Date Smoking Tobacco: Never Assessed Comments Unknown Sex and Gender Information Value Date Recorded Sex Assigned at Not on file Legal Sex Female 4:54 PM CDT Gender Identity Not on file Sexual Orientation Not on file documented as of this encounter Progress Notes * MICHELL Mead - 06/01/2016 12:10 PM CST Message Recorded as Task Date: 06/01/2016 08:49 AM, Created By: Sera Orr Task Name: Medical Complaint Callback Assigned To: [facility] Team Killian Regarding Patient: Fanny Aponte, Status: Active Comment: Sera Orr - 01 Jun 2016 8:49 AM TASK CREATED Caller: Self; Medical Complaint; c/o swollen node in neck, painful and difficulty swallowing, congestion, coughing-productive with clear to white mucus, has coughed so hard that she vomited, drainage, body aches, started Tuesday Allergy to erythromycin and PCN USes Doe Gautam - 01 Jun 2016 9:08 AM TASK REASSIGNED: Previously Assigned To Doe Daily Keflex 500 mg t.i.d. x7 days Cheratussin a.c. 180 mL Message: Pt updated and rx sent to pharm and called in-abigail Plan 1. Cephalexin 500 MG Oral Tablet; TAKE 1 TABLET 3 TIMES DAILY Rx By: Doe Daily; Dispense: 7 Days ; #:21 Tablet; Refill: 0; For: URI (upper respiratory infection); AMADA = N; Sent To: [facility] # [id number]; Last Updated By: Eden Paula 2. Cheratussin AC 100-10 MG/5ML Oral Syrup; TAKE 5 - 10 ML EVERY 4 TO 6 HOURS NEEDED FOR COUGH Rx By: Doe Daily; Dispense: 3 Days ; #:180 ML; Refill: 0; For: URI (upper respiratory infection); AMADA = N; Print Rx; Last Updated By: Eden Paula Signatures Electronically signed by : Eden Paula R.N.; Jun 01 2016 12:13PM REGULATORY ANALYST (Author) documented in this encounter Plan of Treatment Not on file documented as of this encounter Visit Diagnoses Not on filedocumented in this encounter
--- OUTSIDE RECORDS SUMMARY | 2024-05-21 15:07 | XMS_ITS | Encounter Summary ---
Author Organization [facility] Address [facility] [place] [address] [place] [address] Care Team Providers Care Credit Support Specialist Name Role Phone Unavailable Primary Care Provider Unavailabl e Encounter Details Date Type Department Care Team (Latest Contact Info) Description 10/07/2014 Abstract [facility] Social History Tobacco Use Types Packs/Day Years Used Date Smoking Tobacco: Never Assessed Comments Unknown Sex and Gender Information Value Date Recorded Sex Assigned at Not on file Legal Sex Female 4:54 PM CDT Gender Identity Not on file Sexual Orientation Not on file documented as of this encounter Progress Notes * Generic Conversion MD Cynthia - 10/07/2014 3:15 PM CDT Message Recorded as Task Date: 10/07/2014 03:06 PM, Created By: Nedra Mallory Task Name: Medical Complaint Callback Assigned To: [facility] Team Killian Regarding Patient: Fanny Aponte, Status: Active Comment: Nedra Mallory - 07 Oct 2014 3:06 PM TASK CREATED Caller: Self; Medical Complaint; c/o congestion, coughing and blowing green, dry throat, did run fever over the weekend. allergy to pcn and e-mycin (this is fanny santos) Doe Daily - 07 Oct 2014 3:08 PM TASK REASSIGNED: Previously Assigned To Doe Daily omnicef 300mg bid x 10 days Message: patient notified, sent prescription to the pharmacy -sjs Plan 1. Cefdinir 300 MG Oral Capsule; TAKE 1 CAPSULE TWICE DAILY UNTIL GONE Signatures Electronically signed by : Gracie Workman, ; Oct 07 2014 3:17PM HOUSE ADMIN (Author) documented in this encounter Plan of Treatment Not on file documented as of this encounter Visit Diagnoses Not on filedocumented in this encounter
--- OUTSIDE RECORDS SUMMARY | 2024-05-21 15:07 | XMS_ITS | Encounter Summary ---
Author Organization [facility] Address [facility] [facility] [place] [address] [place] [address] Care Team Providers Care Occup Ther Name Role Phone Unavailable Primary Care Provider Unavailabl e Encounter Details Date Type Department Care Team (Late st Contact Info) Description 02/03/2015 Abstract [facility] Family & Internal Medicine [address] [phone] Doe Daily MD Social History Tobacco Use [...] Sign Reading Time Taken Comments Blood Pressure 129/81 02/03/2015 10:08 AM CDT Pulse 89 02/03/2015 10:08 AM CDT Temperature - - Respiratory Rate - - Oxygen Saturation - - Inhaled Oxygen Concentration - - Weight 100.2 kg (221 lb) 02/03/2015 10:08 AM CDT Height 162.6 cm (5' 4 ) 02/03/2015 10:08 AM CDT Body Mass Index 37.93 02/03/2015 10:08 AM CDT documented in this encounter Progress Notes * Doe Daily MD - 02/03/2015 10:15 AM CDT Reason For Visit Reason For Visit: Acute Visit Chief Complaint Patient c/o head and chest congestion for 5 to 6 days , worse last night. History of Present Illness HPI Free Text: Here complaining of worsening head and chest congestion productive cough for the last week. Flib-bys-rifcdfe medicines are not helping. Review of Systems See HPI for pertinent positives. Constitutional: fever, feeling poorly, feeling tired and headache. ENT: earache, sore throat and nasal discharge. Cardiovascular: no chest pain. Respiratory: cough, but no shortness of breath. Active Problems 1. 38 weeks gestation of (V22.2) (Z3A.38) 2. Anxiety (300.00) (F41.9) 3. Depression (311) (F32.9) 4. Migraine (346.90) (G43.909) 5. Pain in left ankle (719.47) (M25.572) 6. URI (upper respiratory infection) (465.9) (J06.9) Past Medical History Patient indicats no significant past medical history. Surgical History 1. History of Oral Surgery Tooth Extraction Family History Family History 1. Family history of Allergies 2. Family history of Asthma (V17.5) 3. Family history of Cancer 4. Family history of Diabetes Mellitus (V18.0) 5. Family history of Hyperlipidemia 6. Family history of Hypertension (V17.49) Social History ?? Never a smoker Allergies 1. Erythromycin Derivatives Recorded By: Tammi Khan; 01/04/2012 9:55:43 AM 2. Penicillins Recorded By: Tammi Khan; 01/04/2012 9:55:43 AM Vitals Recorded: [id number] 10:08AM Temperature 97.6 F Heart Rate 89 Respiration 16 Systolic 129 Diastolic 81 O2 Saturation 89 Height 5 ft 4 in Weight 221 lb BMI Calculated 37.93 BSA Calculated 2.04 Physical Exam Constitutional General appearance: No acute distress, well appearing and well nourished. Ears, Nose, Mouth, and Throat External inspection of ears and nose: Normal. Otoscopic examination: Abnormal. Red swollen nasal mucosa. Oropharynx: Normal with no erythema, edema, exudate or lesions. Pulmonary Respiratory effort: No increased work of breathing or signs of respiratory distress. Dry cough. Auscultation of lungs: Clear to auscultation. Lymphatic Palpation of lymph nodes in neck: No lymphadenopathy. Assessment 1. Sinusitis (473.9) (J32.9) 2. Acute bronchitis (466.0) (J20.9) Plan Acute bronchitis, Sinusitis 1. Levofloxacin 500 MG Oral Tablet; TAKE 1 TABLET DAILY DIRECTED Rx By: Doe Daily; Dispense: 7 Days ; #:7 Tablet; Refill: 0; For: Acute bronchitis, Sinusitis; AMADA = N; Verified Transmission to [facility] [id number]; Last Updated By: [facility]; 02/03/2015 10:25:07 AM 2. Robitussin Chest Congestion 100 MG/5ML Oral Syrup; TAKE 5 ML EVERY 4 HOURS NEEDED Rx By: Doe Daily; Dispense: 6 Days ; #:180 ML; Refill: 0; For: Acute bronchitis, Sinusitis; AMADA = N; Verified Transmission to [facility]; Last Updated By: [facility]; 02/03/2015 10:25:07 AM 3. Call if: The symptoms are not better in 7 days.; Status:Active; Requested for:[id number]; Last Updated By:Jessie Jj; 02/03/2015 10:24:25 AM;Ordered; For:Acute bronchitis, Sinusitis; Ordered By:Doe Daily; Signatures Electronically signed by : Doe Daily M.D.; Feb 03 2015 10:28AM AMUSEMENT CENTRE MANAGER (Author) documented in this encounter Plan of Treatment Not on file documented as of this encounter Visit Diagnoses Not on filedocumented in this encounter
--- OUTSIDE RECORDS SUMMARY | 2024-05-21 15:07 | XMS_ITS | Encounter Summary ---
Author Organization [facility] Address [facility] [place] [address] [place] [address] Care Team Providers Care Hydraulics Engineer Name Role Phone Unavailable Primary Care Provider Unavailabl e Encounter Details Date Type Department Care Team (Latest Contact Info) Description 05/01/2013 Abstract [facility] Social History Tobacco Use Types Packs/Day Years Used Date Smoking Tobacco: Never Assessed Comments Unknown Sex and Gender Information Value Date Recorded Sex Assigned at Not on file Legal Sex Female 4:54 PM CDT Gender Identity Not on file Sexual Orientation Not on file documented as of this encounter Progress Notes * Jazmin Mcintosh Md, MD - 05/01/2013 4:12 PM CST Message Recorded as Task Date: 05/01/2013 03:45 PM, Created By: Michelle Ceja Task Name: Medical Complaint Callback Assigned To: Mikel Castillo Regarding Patient: Fanny Aponte, Status: Active Comment: Michelle Ceja - 01 May 2013 3:45 PM TASK CREATED Caller: Self; Medical Complaint; Pt notified has MRSA. She would like antibiotic called out, still oozing and not closing after 1 wklike it should. Mychalvannakatrina Salas Call pt if meds called out Message: bactrim ds bid x 7days per dr castillo/ Plan 1. Sulfamethoxazole-TMP DS 800-160 MG Oral Tablet; TAKE 1 TABLET TWICE DAILY UNTIL FINISHED; Therapy: to (Evaluate:[id number]); Last Rx:[id number] Signatures Electronically signed by : Kimberly Rose, ; May 01 2013 4:14PM (Author) PATIONAL REHABILITATION AIDE documented in this encounter Plan of Treatment Not on file documented as of this encounter Visit Diagnoses Not on filedocumented in this encounter
--- OUTSIDE RECORDS SUMMARY | 2024-05-21 15:07 | XMS_ITS | Encounter Summary ---
Author Organization [facility] Address [facility]6 [facility] [place] [address] [place] [address] Care Team Providers Care Science Intern Name Role Phone Unavailable Primary Care Provider Unavailabl e Encounter Details Date Type Department Care Team (Latest Contact Info) Description 04/29/2013 Abstract [facility] Social History Tobacco Use Types Packs/Day Years Used Date Smoking Tobacco: Never Assessed Comments Unknown Sex and Gender Information Value Date Recorded Sex Assigned at Not on file Legal Sex Female 4:54 PM CDT Gender Identity Not on file Sexual Orientation Not on file documented as of this encounter Progress Notes * Mikel Castillo MD - 04/29/2013 9:31 PM CST Message Patient has MRSA, if the area is not impoving since her I and D, she will need to be placed on antibiotics. pt notified, pt says still oozing and not closing up after 1 wk like it should. Would like antibiotic called out/dl Task sent to for meds Verified Results Wound Culture / Stain [id number] 01:18PM Mikel Castillo Test Name Result Flag Reference SPECIMEN DESCRIPTION - WOUND SPECIAL REQUESTS - LEFT DEXTER GRAM SMEAR - FEW WHITE BLOOD CELLS [...] - <=0.5 SUSCEPTIBLE LEVOFLOXACIN - 4 RESISTANT Signatures Electronically signed by : Michelel Ceja, ; May 01 2013 3:44PM (Author) NING DESIGNER documented in this encounter Plan of Treatment Not on file documented as of this encounter Visit Diagnoses Not on filedocumented in this encounter
--- OUTSIDE RECORDS SUMMARY | 2024-05-21 15:07 | XMS_ITS | Encounter Summary ---
Author Organization [facility] Address [facility]. [place], [place] [address] [place] [address] Care Team Providers Care Flue Blower Name Role Phone Neelam Gutierrez MD Primary Care Provider [phone] Reason for Referral * Imaging (Emergency) - New Request Specialty Diagnoses / Procedures Referred By Contac t Referred To Contact RADIOLOGY Procedures CT CERV SPINE WO Kathy Castillo PA [address] [place] [address] Phone: tel: fax: Referral ID Status Reason Start Date Expiration Date V isits Requested Visits Authorized [id number] New Request 01/30/2024 01/29/2025 1 1 * Imaging (Emergency) - New Request Specialty Diagnoses / Procedures Referred By Contac t Referred To Contact RADIOLOGY Procedures CT HEAD WO CON Kathy Vail PA [address] [place] [address] Phone: tel: fax: Referral ID Status Reason Start Date Expiration Date V isits Requested Visits Authorized [id number] New Request 01/30/2024 01/29/2025 1 1 Reason for Visit * Reason Comments Neck Pain Encounter Details Date Type Department Care Team (Late st Contact Info) Description 01/30/2024 10:35 AM CDT - 01/30/2024 12:16 PM CDT Emergency [facility] [place] [address] Kathy Vail PA [address] [place] [address] Neck Pain Discharge Disposition: Home or Self Care (Routine [...] Mass Index 38.62 01/30/2024 10:09 AM CDT documented in this encounter Discharge Instructions * Discharge Instructions* JUAN Chew - 01/30/2024 12:03 PM CDT Take naproxen as directed. Take muscle relaxer as needed; This medicine will make you sleepy - do not drink alcohol or drive or take care of small children alone while using this medicine. If your around the house take as directed. If you plan to work while taking it then take it just at night at bedtime. Apply ice to area; 20min at a time several times a day. After 5 days you can apply heat (max of 20 minutes at a time) but always follow with ice still. Drink plenty of fluids You have a concussion. This is a clinical diagnosis, it does not show up on a CT scan. The average concussion symptoms last 5-7 days but symptoms can last longer than that (several weeks) and rarely a lot longer. Drink plenty of water. Take tylenol as needed for DUNCAN. Avoid screens (phones, tablets, television) If symptoms are severe you should not drive. Rest in a dark room. Avoid situations where you may be struck in the head again. Your blood pressure is also high today, this may be anxiety or not feeling well but follow up with your doctor to make sure this has resolved. * Attachments The following attachments cannot be sent through Care Everywhere. * Concussion Discharge Instructions, Adult (Bahamian) * Cervical Muscle Strain (Bahamian) documented in this encounter Medications at Time of Discharge naproxen (NAPROSYN) 500 MG tablet Take 1 tablet (500 mg total) by mouth 2 (two) times daily with meals. 20 tablet 01/30/2024 tiZANidine (ZANAFLEX) 4 MG tablet Take 1 tablet (4 mg total) by mouth every 8 (eight) hours as needed. 12 tablet 01/30/2024 documented as of this encounter ED Notes * Bar Blakely RN - 01/30/2024 12:15 PM CDT Provider discussed today's findings with the patient/family. The patient has been given informationregarding their treatment, follow up and concerning symptoms for which they should seek urgent or emergent attention. I have expressed the the importance of seeking attention should there be any new,or worsening symptoms or persistence of their condition. Patient verbalized understanding of the discharge instructions. * JUAN Chew - 01/30/2024 10:28 AM CDT [place], [place] EMERGENCY DEPARTMENT ENCOUNTER HISTORICAL INFORMATION Primary Care Doctor: NEELAM GUTIERREZ MD Patient information was obtained primarily from the patient, nursing notes History/Exam limitations: None Provider at Bedside Date/Time Event User Comments 01/30/24 1023 Provider at Bedside Assessing Patient KATHY VAIL -- CHIEF COMPLAINT Neck Pain HPI Fanny Aponte is a 38-year-old female who presents with neck pain after injury yesterday. Pt states she was trimming tree branch when it came down and struck her on the head. No LOC. Pt awoke today with neck pain. Pt at one point had some pain shoot down back into left foot (when bending over) but has since resolved. Pt denies focal weakness. Pt denies numbness or tingling of arms. Pt denies mid/back pain. PAST MEDICAL HISTORY Past Medical History: Diagnosis Date ADHD Asthma (HHS/HCC) Negative unless otherwise noted SURGICAL HISTORY Past Surgical History: Procedure Laterality Date SECTION TONSILLECTOMY Negative unless otherwise noted CURRENT MEDICATIONS No current facility-administered medications for this encounter. Current Outpatient Medications: naproxen (NAPROSYN) 500 MG tablet, Take 1 tablet (500 mg total) by mouth 2 (two) times daily with meals., Disp: 20 tablet, Rfl: 0 tiZANidine (ZANAFLEX) 4 MG tablet, Take 1 tablet (4 mg total) by mouth every 8 (eight) hours as needed., Disp: 12 tablet, Rfl: 0 ALLERGIES Review of patient's allergies indicates: Allergen Reactions Augmentin [Amoxicillin-Pot Clavulanate] Unknown Penicillins Hives and Vomiting FAMILY HISTORY No family history on file. Negative unless otherwise noted SOCIAL HISTORY Social History Socioeconomic History Marital status: Tobacco Use Smoking status: Never Smokeless tobacco: Never Substance and Sexual Activity Alcohol use: Yes Comment: maybe once a month Drug use: Yes Types: Marijuana Negative unless otherwise noted REVIEW OF SYSTEMS See HPI. All other systems reviewed and negative PHYSICAL EXAM VITAL SIGNS: Filed Vitals: 01/30/24 1009 01/30/24 1215 BP: (!) 184/118 (!) 123/93 Pulse: 85 71 Resp: 20 18 Temp: 98 ??F (36.7 ??C) TempSrc: Temporal SpO2: 100% 100% Weight: 102.1 kg (225 lb) Height: 1.626 m (5' 4 ) Constitutional: Well developed, Well nourished, No acute distress, Non-toxic appearance. HENT: Normocephalic, Atraumatic, Bilateral external ears normal, Oropharynx moist, Eyes: PERRL, EOMI, Conjunctiva normal, No discharge. Neck- Normal range of motion, pt in C collar from . No tenderness, Supple, No stridor. Respiratory: Normal breath sounds, No respiratory distress. Cardiovascular: Normal heart rate, Normal rhythm, no chest wall tenderness GI: nd Musculoskeletal: Intact distal pulses, No edema, No tenderness, No cyanosis, No clubbing. Good range of motion in all major joints. No tenderness to palpation or major deformities noted. Back- No tenderness. Integument: Warm, Dry, No erythema, No rash. Lymphatic: No lymphadenopathy noted. Neurologic: Alert & oriented x 3, 5/5 strengh BL UE/LE Psychiatric: Affect normal, Judgment normal, Mood normal. Pertinent Labs: No results found for this visit on 01/30/24. RADIOLOGY CT HEAD WO CON Final Result by User, [id number] (01/29 1136) [address] [address] EXAMINATION:Head CT without contrast 01/30/2024 INDICATION: Tree branch fell on head yesterday, head and neck pain TECHNIQUE: Axial CT images of the head were acquired without intravenous contrast. Sagittal coronal reformats were constructed.Radiation dose reduction techniques were used. COMPARISON: None FINDINGS:No acute intracranial hemorrhage, mass effect or midline shift or extra-axial fluid collection. No ventriculomegaly, sulcal effacement or loss anne/white matter differentiation. No acute osseous abnormality. Mastoid air cells and middle ear cavities are clear. There is a 2.8 cm cystic lesion within the left maxillary sinus. 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 The orbits and globes are unremarkable. No significant extracranial soft tissue swelling, soft tissue gas or radiopaque foreign body. IMPRESSION: 1. No acute intracranial hemorrhage or mass effect 2. Large 2.8 cm mucous retention cyst within the left maxillary sinus. Referred By: Interpreted By: Denis Pickett MD, 01/30/2024 11:[address] CERV SPINE WO CON Final Result by User, [id number] (01/29 2188) [address] [address] EXAMINATION:CT the cervical spine without contrast 01/30/2024 INDICATION: Neck pain, tree branch fell on patient yesterday TECHNIQUE: Axial CT images of the cervical spine were acquired without intravenous contrast. Sagittal coronal reformats were constructed.Radiation dose reduction techniques were used. COMPARISON: None FINDINGS:Mineralization is within normal limits. There is straightening of the normal cervical lordosis with preservation of vertebral body heights and disc spaces. The lateral masses of C1 and C2 are well aligned. The dens is intact. The occipital condyles are intact. 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 No acute fracture or dislocation. No spondylolisthesis. No focal lytic or blastic lesion. No significant bony central canal or neural foraminal stenosis. No prevertebral edema. No paraspinal mass or fluid collection. The thyroid gland is unremarkable. No acute abnormality the visualized lung apices. No discrete soft tissue mass or fluid collection within limits of noncontrast CT. No soft tissue gas or radiopaque foreign body. IMPRESSION: 1. No acute fracture, dislocation or prevertebral edema 2. Straightening of the normal cervical lordosis may be positional or due to muscle spasm. 3. 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 Referred By: Interpreted By: Denis Pickett MD, 01/30/2024 11:35 AM MEDS GIVEN IN ER: Medications - No data to display ED COURSE & MEDICAL DECISION MAKING Pertinent Labs & Imaging studies reviewed. (See chart for details) ED Course as of 01/30/242007Jan 30, 2024 1030 Pt is very nice woman who present with neck pain after being struck in head by tree branch yesterday. Pt denies LOC. Pt states she doesn't really have any DUNCAN. Pt c/o left lateral neck pain. Pt arrived in C-collar from local that we will keep on. Pt had some brief parastesia of left foot this morning. None now. 5/5 strength BL UE/LE. Will obtain CT of head and C spine. [MP] 1145 CT head and C spine neg. Pt states her left leg felt asleep for a moment while sitting in WRbut felt fine once she got up. No focal weakness. I did speak with neurosurgery (dr. Che) who agrees that pt can go home with symptomatic tx. Discussed return precautions with pt. [MP] ED Course User Index [MP] JUAN Chew ? Disposition Discussion: I have discussed today's findings with the patient and provided information regarding the likely diagnosis. The patient has been given information regarding their treatment, follow up and concerning symptoms for which they should seek urgent or emergent attention. I have expressed the the importance of seeking attention should there be any new, or worsening symptoms or persistence of their condition. The patient is stable at discharge and has verbalized understanding of these instructions. DATE: 01/30/2024 8:08 PM PATIENT: Fanny Aponte Discharge Clinical Impressions: SNOMED CT(R) 1. Cervical strain STRAIN OF NECK MUSCLE 2. Concussion CONCUSSION INJURY OF BODY STRUCTURE Discharge Condition: stable Discharge Disposition: Patient discharge to home with Discharge Medication List as of 01/30/2024 12:10 PM START taking these medications Details naproxen (NAPROSYN) 500 MG tablet Take 1 tablet (500 mg total) by mouth 2 (two) times daily with meals., Starting Tue01/30/2024, Eprescribe Class: Eprescribe Pharmacy: [facility] #[id number] [place] [address] AT [address] [facility] [address] (Ph #: [phone]) tiZANidine (ZANAFLEX) 4 MG tablet Take 1 tablet (4 mg total) by mouth every 8 (eight) hours as needed., Starting Tue01/30/2024, Eprescribe Class: Eprescribe Pharmacy: [facility] #[id number] [address] [facility] AT [address] [facility] [address] (Ph #: [phone]) I spent time answering the patient's questions. Discharge instructions using teach back, understanding assessed and validated. Please refer to the exit sign writer hand discharge instructions for details surrounding the discharge plan. I did reiterate with the patient that if an urgent need for immediate follow up comes up, not to hesitate to return to the ED. JUAN Chew PA 01/30/242007 Cosigned by Sammy Lovelace MD at 02/01/2024 12:09 PM CDT * Brianna Banks RN - 01/30/2024 10:23 AM CDT Ambulatory to triage from urgent care with c/o neck pain since this morning. Reports a tree branch fell on her yesterday. C-collar in place. Reports tingling to left foot earlier this morning. Deniesany numbness/tingling at this time. Denies LOC or back pain. A&Ox4 documented in this encounter Plan of Treatment Not on file documented as of this encounter Procedures Procedure Name Priority Date/Time Associated Diagnosis Comments CT HEAD WO CON STAT 01/30/2024 11:[address] CERV SPINE WO CON STAT 01/30/2024 11:09 AM CDT documented in this encounter Results * CT CERV SPINE WO CON (01/30/2024 11:09 AM CDT) Anatomical Region Laterality Modality Spine Computed Tomogra phy 01/30/2024 11:3 5 AM CDT Impressions 01/30/2024 11:37 AM CDT IMPRESSION: 1. ??No acute fracture, dislocation or prevertebral edema 2. ??Straightening of the normal cervical lordosis may be positional or due to muscle spasm. 3. 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 Referred By: ?? Interpreted By: Denis Pickett MD, 01/30/2024 11:35 AM Narrative 01/30/2024 11:37 AM CDT [address] [address] EXAMINATION:CT the cervical spine without contrast 01/30/2024 INDICATION: Neck pain, tree branch fell on patient yesterday TECHNIQUE: Axial CT images of the cervical spine were acquired without intravenous contrast. ??Sagittal coronal reformats were constructed.Radiation dose reduction techniques were used. COMPARISON: None FINDINGS:Mineralization is within normal limits. ??There is straightening of the normal cervical lordosis with preservation of vertebral body heights and disc spaces. ??The lateral masses of C1 and C2 are well aligned. ??The dens is intact. ??The occipital condyles are intact. 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 No acute fracture or dislocation. ??No spondylolisthesis. ??No focal lytic or blastic lesion. No significant bony central canal or neural foraminal stenosis. No prevertebral edema. ??No paraspinal mass or fluid collection. ??The thyroid gland is unremarkable. ??No acute abnormality the visualized lung apices. No discrete soft tissue mass or fluid collection within limits of noncontrast CT. No soft tissue gas or radiopaque foreign body. Procedure Note Denis Pickett MD - 01/30/[address] [address] EXAMINATION:CT the cervical spine without contrast 01/30/2024 INDICATION: Neck pain, tree branch fell on patient yesterday TECHNIQUE: Axial CT images of the cervical spine were acquired withoutintravenous contrast. Sagittal coronal reformats wereconstructed.Radiation dose reduction techniques were used. COMPARISON: None FINDINGS:Mineralization is within normal limits. There is straighteningof the normal cervical lordosis with preservation of vertebral bodyheights and disc spaces. The lateral masses of C1 and C2 are wellaligned. The dens is intact. The occipital condyles are intact. Thereis developmental nonunion of the posterior arch of C1. No acute fracture or dislocation. No spondylolisthesis. No focal lyticor blastic lesion. No significant bony central canal or neural foraminal stenosis. No prevertebral edema. No paraspinal mass or fluid collection. Thethyroid gland is unremarkable. No acute abnormality the visualized lungapices. No discrete soft tissue mass or fluid collection within limits ofnoncontrast CT. No soft tissue gas or radiopaque foreign body. IMPRESSION: 1. No acute fracture, dislocation or prevertebral edema 2. Straightening of the normal cervical lordosis may be positional or dueto muscle spasm. 3. 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 Referred By: Interpreted By: Denis Pickett MD, 01/30/2024 11:35 AM us Kathy MARTINEZ CT Final Resu lt * CT HEAD WO CON (01/30/2024 11:09 AM CDT) Anatomical Region Laterality Modality Head Computed Tomogra phy 01/30/2024 11:3 3 AM CDT Impressions 01/30/2024 11:34 AM CDT IMPRESSION: 1. ??No acute intracranial hemorrhage or mass effect 2. ??Large 2.8 cm mucous retention cyst within the left maxillary sinus. Referred By: ?? Interpreted By: Denis Pickett MD, 01/30/2024 11:33 AM Narrative 01/30/2024 11:34 AM CDT [facility] 1 [place], [place] [address] EXAMINATION:Head CT without contrast 01/30/2024 INDICATION: Tree branch fell on head yesterday, head and neck pain TECHNIQUE: Axial CT images of the head were acquired without intravenous contrast. ??Sagittal coronal reformats were constructed.Radiation dose reduction techniques were used. COMPARISON: None FINDINGS:No acute intracranial hemorrhage, mass effect or midline shift or extra-axial fluid collection. ??No ventriculomegaly, sulcal effacement or loss anne/white matter differentiation. No acute osseous abnormality. ??Mastoid air cells and middle ear cavities are clear. ??There is a 2.8 cm cystic lesion within the left maxillary sinus. 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 ??The orbits and globes are unremarkable. ??No significant extracranial soft tissue swelling, soft tissue gas or radiopaque foreign body. Procedure Note Denis Pickett MD - 01/30/[address] [address] EXAMINATION:Head CT without contrast 01/30/2024 INDICATION: Tree branch fell on head yesterday, head and neck pain TECHNIQUE: Axial CT images of the head were acquired without intravenouscontrast. Sagittal coronal reformats were constructed.Radiation dosereduction techniques were used. COMPARISON: None FINDINGS:No acute intracranial hemorrhage, mass effect or midline shift orextra- axial fluid collection. No ventriculomegaly, sulcal effacement orloss anne/white matter differentiation. No acute osseous abnormality. Mastoid air cells and middle ear cavitiesare clear. There is a 2.8 cm cystic lesion within the left maxillarysinus. 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 Theorbits and globes are unremarkable. No significant extracranial softtissue swelling, soft tissue gas or radiopaque foreign body. IMPRESSION: 1. No acute intracranial hemorrhage or mass effect 2. Large 2.8 cm mucous retention cyst within the left maxillary sinus. Referred By: Interpreted By: Denis Pickett MD, 01/30/2024 11:33 AM us Kathy MARTINEZ CT Final Resu lt documented in this encounter Visit Diagnoses Diagnosis Cervical strain- Primary Sprain of neck Concussion Concussion, unspecified documented in this encounter Care Teams Flue Blower Relationship Specialty Start Date End Date Neelam Gutierrez MD [address] [place] [address] PCP - General FAMILY PRACTICE 01/30/24 documented as of this encounter
--- OUTSIDE RECORDS SUMMARY | 2024-05-21 15:07 | XMS_ITS | Encounter Summary ---
Author Organization [facility] Address [facility] [place] [address] [place] [address] Care Team Providers Care Lace Tearing Supervisor Name Role Phone Unavailable Primary Care Provider Unavailabl e Encounter Details Date Type Department Care Team (Latest Contact Info) Description 05/07/2013 Abstract [facility] Social History Tobacco Use Types Packs/Day Years Used Date Smoking Tobacco: Never Assessed Comments Unknown Sex and Gender Information Value Date Recorded Sex Assigned at Not on file Legal Sex Female 4:54 PM CDT Gender Identity Not on file Sexual Orientation Not on file documented as of this encounter Progress Notes * Generic Conversion MD Cynthia - 05/07/2013 1:19 PM CST Message Recorded as Task Date: 05/07/2013 10:31 AM, Created By: Michelle Ceja Task Name: Medical Complaint Callback Assigned To: [facility] Team Killian Regarding Patient: Fanny Aponte, Status: Active Comment: Michelle Ceja - 07 May 2013 10:31 AM TASK CREATED Caller: Self; Medical Complaint; Fanny Felix would like call back, mrsa is back, antibiotic given and [employer] doctor told her not to take that, then they prescribed the same medicine so she's very confused on what she should/shouldn't be taking. Would like a call back personally from you if you have time, otherwise nurse would be ok. Doe Daily - 07 May 2013 11:43 AM TASK REASSIGNED: Previously Assigned To Doe Daily clindamycin is safer in as it is a category B drug. Her wound culture did say she had MRSA that was sensitive to this medicine. Clindamycin 300mg tid x 10 days. Should take probiotic with these like Align OTC Message: pt informed. Plan 1. Clindamycin HCl 300 MG Oral Capsule; TAKE 1 CAPSULE 3 times daily; Therapy: to (Evaluate:[id number]); Last Rx:[id number] Signatures Electronically signed by : Nain Cruz, ; May 07 2013 1:20PM (Author) [employer] documented in this encounter Plan of Treatment Not on file documented as of this encounter Visit Diagnoses Not on filedocumented in this encounter
--- OUTSIDE RECORDS SUMMARY | 2024-05-21 15:07 | XMS_ITS | Encounter Summary ---
Author Organization [facility] Address [facility] [facility]. [place], [place] [address] [place] [address] Care Team Providers Care Exerciser Name Role Phone Unavailable Primary Care Provider Unavailabl e Encounter Details Date Type Department Care Team (Late st Contact Info) Description 08/20/2016 Abstract [facility] Family & Internal Medicine [address] [phone] Doe Daily MD Social History Tobacco Use [...] Sign Reading Time Taken Comments Blood Pressure 128/90 08/20/2016 1:07 PM CDT Pulse 83 08/20/2016 1:07 PM CDT Temperature - - Respiratory Rate - - Oxygen Saturation - - Inhaled Oxygen Concentration - - Weight 101.2 kg (223 lb) 08/20/2016 1:07 PM CDT Height 162.6 cm (5' 4 ) 08/20/2016 1:07 PM CDT Body Mass Index 38.28 08/20/2016 1:07 PM CDT documented in this encounter Progress Notes * MICHELL Mead - 08/20/2016 3:32 PM CDT Message Recorded as Task Date: 08/20/2016 01:48 PM, Created By: Earlene Cabello Task Name: Medical Complaint Callback Assigned To: [facility] [place] Regarding Patient: Fanny Aponte, Status: Active Comment: Earlene Cabello - 20 Aug 2016 1:48 PM TASK CREATED Caller: Flaco Tejeda; Medical Complaint Recedived Cephalexin with 2 different directions. Please call and verify. [phone] Ana King - 20 Aug 2016 3:32 PM TASK EDITED Called cephalexin in for TID #30 tn Signatures Electronically signed by : Ana King, ; Aug 20 2016 3:32PM ICE RESURFACING MACHINE OPERATORS (Author) * Doe Daily MD - 08/20/2016 1:00 PM CDT Reason For Visit Reason For Visit: Acute Visit Chief Complaint Sore throat, gets strep throat easily and her son is just getting over it. Concerned she might haveit now too. History of Present Illness HPI Free Text: Here complaining of painful and swollen throat that started a few days ago. Her son is just recovering from a strep throat and is concerned that she might have it too. She also reports that her seasonal allergies have gotten worse. She has been having a lot of nasal congestion and drainage. She hasnot had a cough. She denies any gastrointestinal symptoms. Review of Systems See HPI for pertinent positives. Active Problems 1. 38 weeks gestation of (V22.2) (Z3A.38) 2. Acute bronchitis (466.0) (J20.9) 3. Anxiety (300.00) (F41.9) 4. Depression (311) (F32.9) 5. Migraine (346.90) (G43.909) 6. Pain in left ankle (719.47) (M25.572) 7. Sinusitis (473.9) (J32.9) 8. URI (upper respiratory infection) (465.9) (J06.9) Past [...] Tammi Khan; 01/04/2012 9:55:43 AM Vitals Recorded: 20Aug2016 01:07PM Heart Rate 83 Respiration 18 Systolic 128 Diastolic 90 O2 Saturation 99 Height 5 ft 4 in Weight 223 lb BMI Calculated 38.28 BSA Calculated 2.05 Physical Exam Constitutional General appearance: No acute distress, well appearing and well nourished. Ears, Nose, Mouth, and Throat External inspection of ears and nose: Normal. Otoscopic examination: Tympanic membranes translucent with normal light reflex. Canals patent without erythema. Oropharynx: Abnormal. Red. Pulmonary Respiratory effort: No increased work of breathing or signs of respiratory distress. Auscultation of lungs: Clear to auscultation. Cardiovascular Auscultation of heart: Normal rate and rhythm, normal S1 and S2, without murmurs. Lymphatic Palpation of lymph nodes in neck: No lymphadenopathy. Results/Data *Rapid Strep Test In Office 20Aug2016 01:52PM Doe Daily Test Name Result Flag Reference *Rapid Strep In Office Positive A Internal QC Verified Yes Assessment 1. Pharyngitis (462) (J02.9) Plan Pharyngitis 1. Cephalexin 500 MG Oral Capsule; TAKE 1 CAPSULE 3 TIMES DAILY Rx By: Doe Daily; Dispense: 10 Days ; #:30 Capsule; Refill: 0; For: Pharyngitis; AMADA = N; Verified Transmission to [facility] # [id number]; Last Updated By: ChowNow; 08/20/20161:37:26 PM *Rapid Strep Test In Office; Status:Resulted - Requires Verification; Done: [id number] 12:00AM Due:19Sep2016; Last Updated By:Claudette Gonzalez; 08/20/2016 2:48:46 PM;Ordered; For:Pharyngitis; Ordered By:Doe Daily; Signatures Electronically signed by : Doe Daily M.D.; Aug 24 2016 4:18AM ICE RESURFACING MACHINE OPERATORS (Author) documented in this encounter Plan of Treatment Not on file documented as of this encounter Procedures Procedure Name Priority Date/Time Associated Diagnosis Comments STREP A RAPID Routine 08/20/2016 1:52 PM CDT documented in this encounter Results * (ABNORMAL) STREP A RAPID (08/20/2016 1:52 PM CDT) RAPID STREP TEST Positive(A ) [facility] TO EPIC CONVERSION Internal Control: Yes [facility] TO EPIC CONVERSION 08/20/2016 1:52 PM CDT 08/20/2016 1:52 PM CDT Narrative [facility] TO EPIC CONVERSION - 08/20/2016 1:52 PM CDT Result Communication: No patient communication needed at this time us Doe Daily MD MICROBIOLOGY - GENERAL ORDERA BLES Final Result [facility] TO EPIC CONVERSION documented in this encounter Visit Diagnoses Not on filedocumented in this encounter
--- OUTSIDE RECORDS SUMMARY | 2024-05-21 15:08 | XMS_ITS | Encounter Summary ---
Author Organization [facility] Address [address] [facility]. [place], [place] [address] [place] [address] Care Team Providers Care Supervisor Cell Room Name Role Phone Unavailable Primary Care Provider Unavailabl e Encounter Details Date Type Department Care Team (Late st Contact Info) Description 04/25/[address] [facility] [place] [address] Mikel Castillo MD [facility] [place], [place] [id number] Social History Tobacco Use Types Packs/Day Years Used Date Smoking Tobacco: Never Assessed Comments Unknown Sex and Gender Information Value Date Recorded Sex Assigned at Not on file Legal Sex Female 4:54 PM CDT Gender Identity Not on file Sexual Orientation Not on file documented as of this encounter Plan of Treatment Not on file documented as of this encounter Visit Diagnoses Diagnosis Cellulitis and abscess of leg Cellulitis and abscess of leg, except foot documented in this encounter
--- OUTSIDE RECORDS SUMMARY | 2024-05-21 15:08 | XMS_ITS | Encounter Summary ---
Author Organization [facility] Address [facility] [place] [address] [place] [address] Care Team Providers Care Rehabilitation Services Aide Name Role Phone Unavailable Primary Care Provider Unavailabl e Encounter Details Date Type Department Care Team (Latest Contact Info) Description 11/30/2012 Abstract [facility] Doe Daily MD Social History Tobacco Use [...] Sign Reading Time Taken Comments Blood Pressure 110/80 11/30/2012 10:02 AM CDT Pulse 85 11/30/2012 10:02 AM CDT Temperature - - Respiratory Rate - - Oxygen Saturation - - Inhaled Oxygen Concentration - - Weight 88.9 kg (196 lb) 11/30/2012 10:02 AM CDT Height 162.6 cm (5' 4 ) 11/30/2012 10:02 AM CDT Body Mass Index 33.64 11/30/2012 10:02 AM CDT documented in this encounter Progress Notes * Doe Daily MD - 11/30/2012 10:00 AM CDT Reason For Visit Reason For Visit: Hospital Follow-Up Chief Complaint [facility] visit, dx ? infection on right leg, better today History of Present Illness HPI Free Text: Here for followup of her right leg issues. She had a small pimple but quickly became painful and she went to an urgent care. She was prescribed Keflex there. The wound worsened, so she went to the emergency room where she was also started on Septra. The pain worsened so she eventually returned to the emergency room and she was admitted overnight. The wound was debrided and she was given IV antibiotics. She was sent out. The next day feeling much better. She is now been off antibiotics for approximately a week and the wound remained dry and nontender. It does still itch and have a little tingling. Review of Systems Focused-Female: See HPI for pertinent positives. Constitutional: no fever, not feeling poorly and no chills. Musculoskeletal: no limb pain and no limb swelling. Active Problems 1. Anxiety 300.00 2. Depression [...] Smoker Current Meds 1. No Reported Medications Recorded; Record; Last Updated By: Tammi Khan Allergies 1. Erythromycin Derivatives 2. Penicillins Vitals Vital Signs [Data Includes: Current Encounter] [id number] 10:02AM Heart Rate 85 Respiration 18 Systolic 110 Diastolic 80 O2 Saturation 97 BMI Calculated 33.46 BSA Calculated 1.94 Height 5 ft 4 in Weight 196 lb Physical Exam Constitutional General appearance: No acute distress, well appearing and well nourished. Skin Examination of the skin for lesions: Abnormal. There is a dry healing 1 cm ulceration over the anterior right lower leg without any surrounding erythema or tenderness. Assessment 1. Skin Abscess Of The Right Leg 682.6 Plan , she will require no particular further treatment. She was given 2 days of Septra which she will take next week and she is going on a float trip and would like to protect that wound. Signatures Electronically signed by : Doe Daily M.D.; Nov 30 2012 6:07PM (Author) NTEER SERVICES SUPERVISOR documented in this encounter Plan of Treatment Not on file documented as of this encounter Visit Diagnoses Not on filedocumented in this encounter
--- OUTSIDE RECORDS SUMMARY | 2024-05-21 15:08 | XMS_ITS | Encounter Summary ---
Author Organization [facility] Address [facility] [facility]. [place], [place] [address] [place] [address] Care Team Providers Care Environmental Studies Department Chair Name Role Phone Unavailable Primary Care Provider Unavailabl e Encounter Details Date Type Department Care Team (Latest Contact Info) Description 11/14/2012 Abstract [facility] Doe Daily MD Social History [...]
--- OUTSIDE RECORDS SUMMARY | 2024-05-21 15:08 | XMS_ITS | Encounter Summary ---
Author Organization [facility] Address [facility] [facility] [address] [place] [address] Care Team Providers Care Assistant Boys Track Coach Name Role Phone Unavailable Primary Care Provider Unavailabl e Encounter Details Date Type Department Care Team (Latest Contact Info) Description 01/07/2012 Abstract [facility] Doe Daily MD Social [...] Sign Reading Time Taken Comments Blood Pressure 120/80 01/07/2012 10:24 AM CDT Pulse 81 01/07/2012 10:24 AM CDT Temperature - - Respiratory Rate - - Oxygen Saturation - - Inhaled Oxygen Concentration - - Weight 83.9 kg (185 lb) 01/07/2012 10:24 AM CDT Height 162.6 cm (5' 4 ) 01/07/2012 10:24 AM CDT Body Mass Index 31.76 01/07/2012 10:24 AM CDT documented in this encounter Progress Notes * Doe Daily MD - 01/07/2012 10:15 AM CDT Chief Complaint f/u adderall started 11-12-11 History of Present Illness HPI: No help taking adderall. Several side effects like tremor, shakes, sweats, hot flashes. Sad mood with anxiety Review of Systems Focused-Female: Cardiovascular: no chest pain. Respiratory: no shortness of breath. Gastrointestinal: no abdominal pain. Other Symptoms: headaches. Current Meds 1. Adderall XR 20 MG Oral Capsule Extended Release 24 Hour; Therapy: (Recorded:[id number]) to Allergies 1. Erythromycin Derivatives 2. Penicillins Vitals Signs [Data Includes: Current Encounter] 07Jan2012 10:24AM Heart Rate: 81 Respiration: 18 Systolic: 120 Diastolic: 80 BMI Calculated: 31.59 BSA Calculated: 1.9 Height: 5 ft 4 in Weight: 185 lb O2 Saturation: 98 Assessment 1. Anxiety 300.00 2. Depression 311 Plan Effexor XR 37.5mg X one week then 75mg qd Call with update in 3 weeks Signatures Electronically signed by : Doe Daily M.D.; Jan 07 2012 10:55AM (Author) Electronically signed by : Doe Daily M.D.; Jan 07 2012 11:06AM (Author) EL MACHINE OPERATOR documented in this encounter Plan of Treatment Not on file documented as of this encounter Visit Diagnoses Not on filedocumented in this encounter
--- OUTSIDE RECORDS SUMMARY | 2024-05-21 15:09 | XMS_ITS | Encounter Summary ---
Author Organization [facility] Address [address] [place] [address] Care Team Providers Care Perinatology Physician Name Role Phone Clinton Gutierrez MD Primary Care Provider + [phone] Reason for Visit * Reason Comments Anxiety/Depression Encounter Details Date Type Department Care Team (Late st Contact Info) Description 11/05/2021 9:30 AM CDT Clinical Support [address] Medicine 1st [place] [id number] [facility] [phone] [place] [address] Anxiety and depression (Primary Dx) Social History Tobacco Use Types Packs/Day Years Used Date Smoking Tobacco: Never Smokeless Tobacco: Never Comments Unknown Sex and Gender Information Value Date Recorded Sex Assigned at Not on file Legal Sex Female 8:21 AM CDT Gender Identity Female 02/19/2021 12:16 PM CDT Sexual Orientation Straight 02/19/2021 12 :16 PM CDT documented as of this encounter Progress Notes * Ileana Dockery PSY.D. - 11/05/2021 9:30 AM CDT [facility] PSYCHOLOGY SERVICE PROGRESS NOTE Patient Identifying Data Patient Name: Fanny Aponte Date of : 1985 Date of Session: 11/05/21 Psychotherapy session was completed via telehealth. Written informed consent for telehealth was obtained from patient prior to initial session. Reviewed limits of confidentiality/privacy and Patient verbalized understanding. Potential risks and benefits of psychotherapy including telehealth sessions were discussed with patient. Requirements for telehealth sessions were also covered, including need for private space, limited distractions, no one else present without both parties' consent. Back-up plan was made at beginning of session in case of unexpected technology disruptions. Nearest emergency contact identified. Provider with active license in [place]. Provider located in [facility] during visit. Telehealth Modality: HIPAA-compliant videoconference Patient Location[facility] [address] [place], [place] [address] [address] Primary Email: [email or web address] Emergency Contact (person nearby): Name Relationship Lgl Grd Work Phone Home Phone Mobile Phone 1. CONTACT,NO Brother [phone] Local Non-Emergency Contact: Nearest Emergency Department:??[facility],??[address] [facility], [place] [id number],? HPI: Patient presents to [facility] Counseling Service seeking support in relation to??caregiver stress.??Her was diagnosed with cancer in 2018.??Patient seeking services for caregiver support and coping skill attainment for improved management of anxiety??and mood regulation.? DSM-5 Diagnostic Impression: Unspecified Anxiety Disorder F41.9 and Unspecified Depressive Disorder F32.9 Intervention: cognitive behavioral and supportive Session #: 5 Begin & End Time: 9:32am - 10:15am (43 minutes) Session Content: Patient presented on time to scheduled session. Patient was unaccompanied in session. Patient reported irritable mood since last visit on 10/22/21. Patient stated that she has been feeling irritable and stressed out. She identified a variety of stressors at this time and noted that she is not receiving a lot of support from others. Patient identified that this is causing strain in her relationships. We discussed ways of asking for support from others and being assertive with one's needs. Estimator Lumber utilized psychoeducation, empathic listening, validation, open ended questioning, normalization and selective reflections during session discussion. Patient was actively engaged throughout thesession and receptive to interventions. Mental Status: Mood: Anxious and Depressed Affect:??Broad Congruency:??Mood congruent Level of consciousness & Orientation:??Alert and oriented to person, place, time Appearance:??Dressed casually, appropriately groomed Behavior/Motor:??Within normal limits Speech:??Within normal limits Concentration:??Appropriately attentive and following conversation Memory:??Intact Thought Process:??Linear and coherent?? Insight:??Appropriate Judgment:??Appropriate Risk Assessment: Patient adamantly denied current and recent SI/HI/I/P. Patient did not appear to represent an imminent risk of harm to self/others. Patient remains sustainable for treatment as an outpatient. Plan and Recommendations: 1. The patient will likely benefit from ongoing individual therapy with an emphasis on assertiveness and boundary setting in relationships. 2. The patient may benefit from a referral to a provider for couple's counseling. This was discussed with patient and a referral was provided. 2. The next appointment is scheduled for: November 19, 2021 at 10:30am Ileana Dockery Psy.D. documented in this encounter Plan of Treatment Not on file documented as of this encounter Visit Diagnoses Diagnosis Anxiety and depression- Primary documented in this encounter Care Teams Perinatology Physician Relationship Specialty Start Date End Date Clinton Gutierrez MD PCP - General Family Medicine 02/20/21 documented as of this encounter
--- OUTSIDE RECORDS SUMMARY | 2024-05-21 15:09 | XMS_ITS | Encounter Summary ---
Author Organization [facility] Address [address] [place] [address] Care Team Providers Care Stock Receiver Name Role Phone Unavailable Primary Care Provider Unavailabl e Encounter Details Date Type Department Care Team (Late st Contact Info) Description 04/19/2020 Lab Requisition [facility] Mobile Testing [address] [place] [address] [place] [address] [place] [address] Social History Tobacco Use Types Packs/Day Years Used Date Smoking Tobacco: Never Assessed Comments Unknown Sex and Gender Information Value Date Recorded Sex Assigned at Not on file Legal Sex Female 11:32 AM REHABILITATION CONSTRUCTION SPECIALIST Gender Identity Not on file Sexual Orientation Not on file documented as of this encounter Plan of Treatment Not on file documented as of this encounter Procedures Procedure Name Priority Date/Time Associated Diagnosis Comments SARS-COV-2 PCR [facility] ONLY Routine 04/18/2020 5:00 PM REHABILITATION CONSTRUCTION SPECIALIST documented in this encounter Visit Diagnoses Not on filedocumented in this encounter
--- OUTSIDE RECORDS SUMMARY | 2024-05-21 15:09 | XMS_ITS | Referral Summary ---
Author Organization [facility] Address [address] [place] [address] Care Team Providers Care Saturator Operator Name Role Phone Clinton Gutierrez MD Primary Care Provider [phone] Allergies Active Allergy Reactions Criticality Noted Date Comments Azithromycin Hives,Nausea & Vomiting Medium 02/20/2021 Erythromycin Rash Medium 03/25/2020 Penicillins Rash Medium 02/20/[address] (CYMBALTA) 30 mg capsule Take 30 mg by mouth daily 01/22/2021 Active Active Problems Problem Noted Date Diagnosed Date BMI 40.0-44.9, adult 03/10/2021 ALVES (dyspnea on exertion) 02/20/2021 Palpitations 02/20/2021 Hypercholesteremia 02/20/2021 Social History Tobacco Use Types Packs/Day Years Used Date Smoking Tobacco: Never Smokeless Tobacco: Never Personal Safety Answer Date Recorded Getting School Help Needed Not on file 07/22 Comments Unknown Sex and Gender Information Value Date Recorded Sex Assigned at Not on file Legal Sex Female 8:21 AM CDT Gender Identity Female 02/19/2021 12:16 PM CDT Sexual Orientation Straight 02/19/2021 12 :16 PM CDT Last Filed Vital Signs Vital Sign Reading Time Taken Comments Blood Pressure 130/80 03/10/2021 2:07 PM CDT Pulse 97 03/10/2021 2:07 PM CDT Temperature - - Respiratory Rate - - Oxygen Saturation - - Inhaled Oxygen Concentration - - Weight 117 kg (258 lb) 03/10/2021 2:07 PM CDT Height 165.1 cm (5' 5 ) 03/10/2021 2:07 PM CDT Body Mass Index 42.93 03/10/2021 2:07 PM CDT Plan of Treatment Not on file [place] [employer] [place] [employer] [place] [facility] Member Subscriber Plan / Payer ( fective 2020-Present) Name:Fanny Aponte Relation to Subscriber:Self Name:FANNY APONTE Payer ID:[id number] (NAIC) Type:[employer] Address: [facility] [address] [place] [id number] Care Teams Saturator Operator Relationship Specialty Start Date End Date Clinton Gutierrez MD PCP - General Family Medicine 02/20/21
--- OUTSIDE RECORDS SUMMARY | 2024-05-21 15:09 | XMS_ITS | Encounter Summary ---
Author Organization [facility] Address [address] [place] [address] Care Team Providers Care Budget Examiner Name Role Phone Unavailable Primary Care Provider Unavailabl e Encounter Details Date Type Department Care Team (Late st Contact Info) Description 04/19/2020 12:00 PM MEDICAL RADIATION DOSIMETRIST Rapid Evaluation [facility] Mobile Testing [address] [place] [address] Social History Tobacco Use Types Packs/Day Years Used Date Smoking Tobacco: Never Assessed Comments Unknown Sex and Gender Information Value Date Recorded Sex Assigned at Not on file Legal Sex Female 11:32 AM MEDICAL RADIATION DOSIMETRIST Gender Identity Not on file Sexual Orientation Not on file documented as of this encounter Plan of Treatment Not on file documented as of this encounter Visit Diagnoses Not on filedocumented in this encounter
--- OUTSIDE RECORDS SUMMARY | 2024-05-21 15:09 | XMS_ITS | Clinical Summary ---
Author Organization [facility] Address [address] [place] [address] Care Team Providers Care Slots Manager Name Role Phone Unavailable Primary Care Provider Unavailabl e Social History Tobacco Use Types Packs/Day Years Used Date Smoking Tobacco: Never Assessed Comments Unknown Sex and Gender Information Value Date Recorded Sex Assigned at Not on file Legal Sex Female 11:32 AM SENIOR BIOINFORMATICS SPECIALIST Gender Identity Not on file Sexual Orientation Not on file Plan of Treatment Health Maintenance Due Date Last Done Comments Hepatitis C Virus (HCV) Screening 1985 TdaP Immunization 1985 Hepatitis B Immunization (1 of 3 - 19+ 3-dose series) 10/05/2006 Pap Smear 10/05/2008 Cervical Cancer Screening (CCS) 10/05/2017 HPV/Cotest 10/05/2017 SARS-COV-2 Immunization ( season) 2023 Influenza Immunization (Seas on Ended) 2024 03/25/2020 Meningococcal Immunization (ACWY) Aged Out No longer eligible based on patient's age to complete this topic Pneumococcal Immunization Combined Aged Out No longer eligible based on patient's age to complete this topic Rotavirus Immunization Aged Out No lo nger eligible based on patient's age to complete this topic Insurance [facility] [employer] on file
--- OUTSIDE RECORDS SUMMARY | 2024-05-21 15:09 | XMS_ITS | Encounter Summary ---
Author Organization [facility] Healthcare Address [address] [place] [address] Care Team Providers Care Loss Prevention Guard Name Role Phone Clinton Gutierrez MD Primary Care Provider + [phone] Reason for Visit * Reason Comments Anxiety Encounter Details Date Type Department Care Team (Late st Contact Info) Description 11/19/2021 10:30 AM CDT Clinical Support [address] Medicine 1st [place] [phone] Ileana Dockery PSYShamirDShamir [address] [facility] [phone] [place] [address] Anxiety (Primary Dx) Social History Tobacco Use Types Packs/Day Years Used Date Smoking Tobacco: Never Smokeless Tobacco: Never Comments Unknown Sex and Gender Information Value Date Recorded Sex Assigned at Not on file Legal Sex Female 8:21 AM CDT Gender Identity Female 02/19/2021 12:16 PM CDT Sexual Orientation Straight 02/19/2021 12 :16 PM CDT documented as of this encounter Progress Notes * Ileana Dockery PSYJim. - 11/19/2021 10:30 AM CDT [facility] PSYCHOLOGY SERVICE PROGRESS NOTE Patient Identifying Data Patient Name: Fanny Aponte Date of : 1985 Date of Session: 11/19/21 Psychotherapy session was completed via telehealth. Written [...] contact identified. Provider with active license in [place] and [place]. Provider located in [facility] during visit. Telehealth Modality: HIPAA-compliant videoconference Patient Location: [address] [place], [place] [address] [address] Primary Email: [email or web address] Emergency Contact (person nearby): Name Relationship Lgl Grd Work Phone Home Phone Mobile Phone 1. CONTACT,NO Brother [phone] Local Non-Emergency Contact: Nearest Emergency Department:??[facility],??[facility], [place] [id number],? HPI: Patient presents to [facility] seeking support in relation to??caregiver stress.??Her was diagnosed with cancer in 2018.??Patient seeking services for caregiver support and coping skill attainment for improved management of anxiety??and mood regulation.? DSM-5 Diagnostic Impression: Unspecified Anxiety Disorder F41.9 and Unspecified Depressive Disorder F32.9 Intervention: cognitive behavioral and supportive Session #: 6 Begin & End Time: 10:30am - 11:15am (45 minutes) Session Content: Patient presented on time to scheduled session. Patient was unaccompanied in session. Patient reported okay mood since last visit on 11/05/21. Patient reported experiencing various stressors and highlighted that she has been primarily utilizing distraction as a coping mechanism for stress. She indicated that this is somewhat beneficial at times, but does not solve her concerns in the long-run. We discussed the advantages and disadvantages to experiencing emotions. Patient reported a willingness to engage in journaling in order to explore emotional states. She was encouraged to engage in a pleasant activity after journaling. Pleating Machine Operator utilized psychoeducation, empathic listening, validation, open ended questioning, normalization and selective reflections during session discussion. Patient was actively engaged throughout thesession and receptive to interventions. Mental Status: Mood: Anxious Affect:??Broad Congruency:??Mood congruent Level of consciousness & [...] will likely benefit from ongoing individual therapy for continued support and stressmanagement. 2. The next appointment is scheduled for: December 17, 2021 Ileana Dockery Psy.D. documented in this encounter Plan of Treatment Not on file documented as of this encounter Visit Diagnoses Diagnosis Anxiety- Primary Anxiety state, unspecified documented in this encounter Care Teams Loss Prevention Guard Relationship Specialty Start Date End Date Clinton Gutierrez MD PCP - General Family Medicine 02/20/21 documented as of this encounter
--- OUTSIDE RECORDS SUMMARY | 2024-05-21 15:09 | XMS_ITS | Clinical Summary ---
Author Organization [facility] Address [address] [place] [address] Care Team Providers Care Border Measurer Name Role Phone Clinton Gutierrez MD Primary Care Provider [phone] Allergies Active Allergy Reactions Criticality Noted Date Comments Azithromycin Hives,Nausea & Vomiting Medium 02/20/2021 Erythromycin Rash Medium 03/25/2020 Penicillins Rash Medium 02/20/[address] (CYMBALTA) 30 mg capsule Take 30 mg by mouth daily 01/22/2021 Active Active Problems Problem Noted Date Diagnosed Date BMI 40.0-44.9, adult 03/10/2021 ALVES (dyspnea on exertion) 02/20/2021 Palpitations 02/20/2021 Hypercholesteremia 02/20/2021 Surgical History Surgery Date Site/Laterality Comments SECTION CHOLECYSTECTOMY Social History Tobacco Use Types Packs/Day Years [...] Orientation Straight 02/19/2021 12 :16 PM CDT Obstetrics History Last Filed Vital Signs Vital Sign Reading [...] Plan of Treatment Not [place] [id number] [employer] [place] [id number] [employer] Member Subscriber Plan / Payer ( fective 2020-Present) Name:Fanny Aponte Relation to Subscriber:Spouse Name:RIDGE APONTE Date of :1987 (Home) Address: [place] [address] Payer ID:[id number] (NAIC) Type:BC OTHER Address: [address] [place] [address] [place] [address] [facility] Care Teams Border Measurer Relationship Specialty Start Date End Date Clinton Gutierrez MD PCP - General Family Medicine 02/20/21
--- OUTSIDE RECORDS SUMMARY | 2024-05-21 15:10 | XMS_ITS | Encounter Summary ---
Author Organization [facility] Healthcare Address [address] [place] [address] Care Team Providers Care Monotypist Name Role Phone Unavailable Primary Care Provider Unavailabl e Reason for Visit * Reason Comments AD (Adjustment Disorder) Encounter Details Date Type Department Care Team (Late st Contact Info) Description 03/23/2018 10:00 AM CDT Clinical Support [address] [address] Summer Puentes, PhD [address] [facility] [phone] [place] [address] Social History Tobacco Use Types Packs/Day Years Used Date Smoking Tobacco: Never Assessed Comments Unknown Sex and Gender Information Value Date Recorded Sex Assigned at Not on file Legal Sex Female 8:21 AM CDT Gender Identity Female 02/19/2021 12:16 PM CDT Sexual Orientation Straight 02/19/2021 12 :16 PM CDT documented as of this encounter Progress Notes * Summer Puentes, PhD - 03/23/2018 10:00 AM CDT [facility] PSYCHOLOGY SERVICE FOLLOW-UP SESSION OVERVIEW: Patient arrived on time to therapy. 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 She is having difficulty helping his cope with his diagnosis. Prior to this they were already having some tension in their relationship. Introduced perspective taking and assertive communication to the patient. EMOTIONAL STATUS: Mood: WNL Affect: WNL MENTAL STATUS: WNL RISK ASSESSMENT: Patient denied suicidal/homicidal ideation, plan, and intent. No significant risk factors noted at this visit. Remains sustainable as an outpatient from a psychological perspective. ASSESSMENT: Patient is experiencing caregiver stress associated with and his cancer Dx. PLAN & RECOMMENDATIONS: 1. The patient will likely benefit from ongoing individual therapy. Will utilize caregiver stress protocol. May discuss option of couples therapy in the future. ATIONS ANALYSIS TECHNICIAN documented in this encounter Plan of Treatment Not on file documented as of this encounter Visit Diagnoses Not on filedocumented in this encounter
--- OUTSIDE RECORDS SUMMARY | 2024-05-21 15:10 | XMS_ITS | Encounter Summary ---
Author Organization [facility] Address [address] [facility] [address] [place] [address] Care Team Providers Care Preservative Filler Machine Operator Name Role Phone Gaye Abdalla Primary Care Provider + [phone] Clinton Gutierrez MD Primary Care Provider + [phone] Encounter Details Date Type Department Care Team (Late st Contact Info) Description 02/19/[address] [facility] Cardiology [address] [facility] [address] [place] [address] ProviderMell MD [address] [place] [address] Social History Tobacco Use Types Packs/Day Years Used Date Smoking Tobacco: Never Assessed Comments Unknown Sex and Gender Information Value Date Recorded Sex Assigned at Not on file Legal Sex Female 8:21 AM CDT Gender Identity Female 02/19/2021 12:16 PM CDT Sexual Orientation Straight 02/19/2021 12 :16 PM CDT documented as of this encounter Plan of Treatment Not on file documented as of this encounter Procedures Procedure Name Priority Date/Time Associated Diagnosis Comments CARDIOLOGY DOCUMENT SCAN Routine 02/19/2021 documented in this encounter Results * SCAN - CARDIOLOGY (02/19/2021) Anatomical Region Laterality Modality Other Historical Provider [facility] CARDIAC [facility] BROOKE WALKER Final Result documented in this encounter Visit Diagnoses Not on filedocumented in this encounter Care Teams Preservative Filler Machine Operator Relationship Specialty Start Date End Date Gaye Abdalla PA [address] [place] [place] [address] PCP - General Physician Sleeve Setter Lockstitch 02/19/21 02/19/21 Clinton Gutierrez MD [address] [place] [address] PCP - General Family Medicine 02/20/21 documented as of this encounter
--- OUTSIDE RECORDS SUMMARY | 2024-05-21 15:10 | XMS_ITS | Encounter Summary ---
Author Organization [facility] Healthcare Address [address] [place] [address] Care Team Providers Care Biscuit Machine Operator Name Role Phone Clinton Gutierrez MD Primary Care Provider + [phone] Reason for Visit * Reason Comments Anxiety Encounter Details Date Type Department Care Team (Late st Contact Info) Description 09/16/2021 10:30 AM CDT Clinical Support [address] Advanced Medicine 1st [place] [phone] Ileana Dockery, PSY.D. [address] [place] [address] [phone] [place] [address] Anxiety and depression (Primary Dx) Social History [...] of this encounter Progress Notes * Ileana Dockery, PhD - 09/16/2021 10:30 AM CDT [facility] PSYCHOLOGY SERVICE INITIAL CONSULTATION NOTE Patient Identifying Data Patient Name: Fanny Aponte Date of : 1985 Age: 35 y.o. Sex: female Date of Session: 09/16/21 Duration of Session: 50 minutes Initial evaluation for psychological services was completed via telehealth. Written informed consent for telehealth was obtained from patient prior to outset of evaluation. Reviewed limits of confidentiality/privacy and Patient verbalized understanding. Potential risks and benefits of psychotherapyincluding telehealth sessions were discussed with patient. Requirements for telehealth sessions were also covered, including need for private space, limited distractions, no one else present without both parties' consent. Back-up plan was made at beginning of session in case of unexpected technology disruptions. Nearest emergency contact identified. Provider with active license in [place] and [place] and located in [facility] during visit. Telehealth Modality: HIPAA-compliant videoconference Patient Location: Patient attended a medical appointment with her at [facility], [address] , [place] [address]; she was located in a medical exam room during the virtual visit Primary Email: [email or web address] Emergency Contact (person nearby): Mother Local Non-Emergency Contact: Nearest Emergency Department: [facility], [address] , [place] [address] REASON FOR VISIT: Reason for consult: Caregiver stress Referral Source: Self-referral HPI: Patient presents to [facility] Counseling Service seeking support in relation to caregiver stress. Andrey was diagnosed with cancer in 2018. Patient reported that she is the sole caregiver for her and accompanies him to all of this medical visits. Patient endorsed daily depressed mood, diminished interest or pleasure, fatigue or loss of energy and feelings of worthlessness or excessive or inappropriate guilt. She also noted excessive anxiety/ worry, difficulty controlling worry, restless/ edgy, irritability, muscle tension and fatigue. She endorsed worries and fears pertaining to her 's health. Patient also endorsed sleep-related difficulties, noting that she has difficulties falling asleep and staying asleep at nighttime due to ruminative thoughts. She reported interest in coping skill attainment for improved management of anxiety and mood regulation. 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 Financial concerns: denied Insurance: Private Insurance Hobbies: denied hobbies Brenda background: Patient does believe in a higher power. Patient identifies her hindu affiliation as Confucianist. Psychosocial Stressors: none reported. Social Support Support System: is adequate and includes mother and friends. Patient declines social events and hoahaoism services because she no longer finds these gatherings to be supportive and do not provide sufficient distraction from caregiver stress. Practical Support: inadequate - Patient identified difficulties with completing certain material coordinator (e.g., mowing the lawn) and reached out for help from members of her hoahaoism but was denied help. Emotional Support: adequate Access/acceptance of support: Yes Feels like burden to others: No Sense of belonging: Yes Coping Strategies: distraction EMOTIONAL STATUS/PSYCHIATRIC HISTORY: Presenting Diagnostic Criteria: Depression: Depressed mood, diminished interest or pleasure, fatigue or loss of energy and feelingsof worthlessness or excessive or inappropriate guilt Anxiety: Excessive anxiety/ worry, Difficulty controlling worry, Restless/ Edgy, Irritability, Muscle tension and Fatigue Adjustment: All symptoms of adjustment disorder denied. PTSD: All symptoms of PTSD denied Sleep: difficulty falling asleep and non-restful sleep Psychosis: denied Substance Abuse History: Recreational drugs: endorsed occasional use of marijuana edibles Use of alcohol: endorsed occasional alcohol use (1-2 drinks monthly or less) Tobacco use: no Past Mental Health Treatment: Patient denied a significant history of mental health problems. Patient denied a history of psychiatric hospitalizations. She previously met with a mental health provider in 2018 for caregiver stress, but did not believe it was helpful. She indicated that the service was more supportive in nature and did not provide her with coping skills. Risk Assessment Patient adamantly denied current, recent, and remote history of SI/HI/I/P. Patient denied a historyof engaging in preparatory behaviors or suicide attempts. At time of session Patient did not appearto represent an imminent risk of harm to self/others. Patient remains sustainable for treatment as an outpatient. Risk Factors: Current or previous history of psychiatric diagnosis Protective Factors: Denied SI/HI/I/P, Future-oriented, Help-seeking, Positive social support, Spirituality, Sense of responsibility to family, Caregiver role, Life satisfaction, Positive problem-solving skills, Positive therapeutic relationship Level of Risk: Low chronic/Low acute: Patient denied history of SI/HI/I/P. No current SI/HI/I/P. No identified safety risks (no danger to self or others). Suicide Safety Plan: NA Mental Status Level of consciousness & Orientation: Alert and oriented to person, place, time Appearance: Dressed casually, appropriately groomed Behavior/Motor: Within normal limits Speech: Within normal limits Mood: Anxious Affect Range: Broad Congruency:Mood congruent Concentration: Appropriately attentive and following conversation Memory: No impairment observed Thought Process: Linear and coherent Insight: Appropriate Judgment: Intact Barriers to Treatment: none Conceptualization: The patient is a 35 y.o. White female seeking support in relation to caregiver stress. She was self-referred for services. Her was diagnosed with cancer in 2018. Patient reported that she is the sole caregiver for her and accompanies him to all of this medical visits. Patient endorsed daily depressed mood, diminished interest or pleasure, fatigue or loss of energy and feelings of worthlessness or excessive or inappropriate guilt. She also noted excessive anxiety/ worry, difficulty controlling worry, restless/ edgy, irritability, muscle tension and fatigue. She endorsed worriesand fears pertaining to her 's health. Patient also endorsed sleep-related difficulties, noting that she has difficulties falling asleep and staying asleep at nighttime due to ruminative thoughts. Patient reports that she has experienced these difficulties since her was diagnosed with cancer in 2018. She reported interest in coping skill attainment for improved management of anxiety and mood regulation. Senior Technical Program Manager utilized psychoeducation, empathic listening, validation, open ended questioning, normalization and selective reflections. Patient was receptive to visit and indicated understanding of session material. DSM-5 Diagnostic Impression: Unspecified Anxiety Disorder F41.9 and Unspecified Depressive Disorder F32.9 Plan 1. Patient will likely benefit from CBT and ACT based interventions to target depressed mood and anxiety and Relaxation training to target physiological and cognitive manifestations of anxiety. 2. Patient may benefit from caregiver support group. Will discuss during next visit. 3. Patient would likely benefit from receiving information about services to help with material coordinator (e.g., Cleaning for a Reason). Will discuss during next visit. 3. Patient will follow up in 1 week for continued support and intervention. Ileana Dockery, Rowan documented in this encounter Plan of Treatment Not on file documented as of this encounter Visit Diagnoses Diagnosis Anxiety and depression- Primary documented in this encounter Orders Consult Count Last Ordered Date First Orde red Date ANCILLARY ONCOLOGY SERVICES REQUEST 1 09/10 documented in this encounter Care Teams Biscuit Machine Operator Relationship Specialty Start Date End Date Clinton Gutierrez MD PCP - General Family Medicine 02/20/21 documented as of this encounter
--- OUTSIDE RECORDS SUMMARY | 2024-05-21 15:10 | XMS_ITS | Encounter Summary ---
Author Organization [facility] Healthcare Address [address] [place] [address] Care Team Providers Care Dispute Resolution Analyst Name Role Phone Clinton Gutierrez MD Primary Care Provider + [phone] Reason for Visit * Reason Comments Anxiety Encounter Details Date Type Department Care Team (Late st Contact Info) Description 09/24/2021 9:30 AM CDT Clinical Support [address] Medicine 1st [place] [phone] Ileana Dockery, PSY.D. [address] [place] [address] [address] [phone] [place] [address] Anxiety and depression (Primary Dx) Social History [...] Progress Notes * Ileana Dockery, PhD - 09/24/2021 9:30 AM CDT [facility] PSYCHOLOGY SERVICE PROGRESS NOTE Patient Identifying Data Patient Name: Fanny Aponte Date of : 1985 Date of Session: 09/24/21 Psychotherapy session was completed via telehealth. Written [...] contact identified. Provider with active license in [place] and [place]. Provider located in [facility] during visit. Telehealth Modality: HIPAA-compliant videoconference Patient Location: [address] [place], [place] [address] [address] Primary Email: [email or web address] Emergency Contact (person nearby): Name Relationship Lgantony Grd Work Phone Home Phone Mobile Phone 1. CONTACT,NO Mother [phone] Local Non-Emergency Contact: Nearest Emergency Department: [place] [address], [place] [address], HPI: Patient presents to [facility] Counseling Service seeking support in relation to caregiver stress. Her was diagnosed with cancer in 2018. Patient seeking services for caregiver support and coping skill attainment for improved management of anxiety and mood regulation. DSM-5 Diagnostic Impression: Unspecified Anxiety Disorder F41.9 and Unspecified Depressive Disorder F32.9 Intervention: cognitive behavioral and supportive Session #: 2 Begin & End Time: 9:30 am - 10:15 am (45 minutes) Session Content: Patient presented on time to scheduled session. Patient was unaccompanied in session. Patient reported okay mood since last visit on 09/16/21. New session material introduced, including values exploration and boundary setting. Session themes focused on managing conflicts with value sets and establishing boundaries in interpersonal relationships. Patient was provided with information on resourcesfor support (e.g., Cleaning for a Reason). Wood And Wood Products Factory Worker utilized psychoeducation, empathic listening, validation, open ended questioning, normalization and selective reflections during session discussion. Patient was actively engaged throughout thesession and receptive to interventions. Progress Towards Goals: Patient identified list of emotional triggers and is learning skills towardcoping with these triggers. Mental Status: Mood: Anxious Affect: Broad Congruency: Mood congruent Level of consciousness & Orientation: Alert and oriented to person, place, time Appearance: Dressed casually, appropriately groomed Behavior/Motor: Within normal limits Speech: Within normal limits Concentration: Appropriately attentive and following conversation Memory: Intact Thought Process: Linear and coherent Insight: Appropriate Judgment: Appropriate Risk Assessment: Patient adamantly denied current and recent SI/HI/I/P. Patient did not appear to represent an imminent risk of harm to self/others. Patient remains sustainable for treatment as an outpatient. Plan Patient will follow up in 1 week for continued individual psychotherapy. Ileana Dockery Psy.D. documented in this encounter Plan of Treatment Not on file documented as of this encounter Visit Diagnoses Diagnosis Anxiety and depression- Primary documented in this encounter Care Teams Dispute Resolution Analyst Relationship Specialty Start Date End Date Clinton Gutierrez MD PCP - General Family Medicine 02/20/21 documented as of this encounter
--- OUTSIDE RECORDS SUMMARY | 2024-05-21 15:10 | XMS_ITS | Encounter Summary ---
Author Organization [facility] Healthcare Address [address] [place] [address] Care Team Providers Care Electrical Engineering Teacher Name Role Phone Clinton Gutierrez MD Primary Care Provider + [phone] Reason for Visit * Reason Comments Anxiety Encounter Details Date Type Department Care Team (Late st Contact Info) Description 10/01/2021 9:30 AM CDT Clinical Support [address] Medicine 1st [place] [phone] Ileana Dockery, PSY.D. [address] [place] [address] [phone] [place] [address] Anxiety and depression (Primary Dx) Social History [...] Progress Notes * Ileana Dockery, PhD - 10/01/2021 9:30 AM CDT [facility] PSYCH[facility]Y SERVICE PROGRESS NOTE Patient Identifying Data Patient Name: Fanny Aponte Date of : 1985 Date of Session: 09/30/21 Psychotherapy session was completed via telehealth. Written [...] contact identified. Provider with active license in [place] and [place]. Provider located in [facility] during visit. Telehealth Modality: HIPAA-compliant videoconference Patient Location: [facility] [place] [address] Primary Email: [email or web address] Contact (person nearby): Name Relationship Lgantony Grd Work Phone Home Phone Mobile Phone 1. CONTACT,NO Brother [phone] Local Non-Emergency Contact: Nearest Emergency Department: [place] [address], [place] [id number], HPI: Patient presents to [facility] seeking support in relation to caregiver stress. Her was diagnosed with cancer in 2018. Patient seeking services for caregiver support and coping skill attainment for improved management of anxiety and mood regulation. DSM-5 Diagnostic Impression: Unspecified Anxiety Disorder F41.9 and Unspecified Depressive Disorder F32.9 Intervention: cognitive behavioral, supportive, psychoeducational, and acceptance and commitment therapy Session #: 3 Begin & End Time: 9:30am - 10:18am (48 minutes) Session Content: Patient presented on time to scheduled session. Patient was unaccompanied in session. Patient reported okay mood since last visit on September 24, 2021. Patient identified various stressors and expressed interest in discussing stress management strategies. New session material introduced, including discussing the body's stress response and introducing diaphragmatic breathing. Session themes focused onmanaging stress in order to expand upon present moment awareness. Steam Fitter utilized psychoeducation, empathic listening, validation, open ended questioning, normalization and selective reflections during session discussion. Patient was actively engaged throughout thesession and receptive to interventions. Progress Towards Goals: Patient has identified difficulties with emotion regulation during times ofstress. Mental Status: Mood: Anxious Affect: Broad Congruency: [...] outpatient. Plan Patient will follow up in 3 weeks for continued individual psychotherapy. Ileana Dockery Psy.D. documented in this encounter Plan of Treatment Not on file documented as of this encounter Visit Diagnoses Diagnosis Anxiety and depression- Primary documented in this encounter Care Teams Electrical Engineering Teacher Relationship Specialty Start Date End Date Clinton Gutierrez MD PCP - General Family Medicine 02/20/21 documented as of this encounter
--- OUTSIDE RECORDS SUMMARY | 2024-05-21 15:10 | XMS_ITS | Encounter Summary ---
Author Organization [facility] Healthcare Address [address] [place] [address] Care Team Providers Care Licensing Worker Name Role Phone Clinton Gutierrez MD Primary Care Provider + [phone] Reason for Visit * Reason Comments Anxiety/Depression Encounter Details Date Type Department Care Team (Late st Contact Info) Description 10/22/2021 9:30 AM CDT Clinical Support [address] Advanced Medicine 1st [place] [phone] Ileana Dockery PSYIsh [address] [place] [address] [address] [phone] [place] [address] Anxiety and depression (Primary Dx) [...] Progress Notes * Ileana Dockery PSY.D. - 10/22/2021 9:30 AM CDT [facility] PSYCHOLOGY SERVICE PROGRESS NOTE ?? Patient Identifying Data Patient Name: Fanny Aponte Date of : 1985 Date of Session: 10/22/21 ?? Psychotherapy session was completed via telehealth. Written informed consent for telehealth was obtained from patient prior to initial session.??Reviewed limits of confidentiality/privacy and Patientverbalized understanding.??Potential risks and benefits of psychotherapy including telehealth sessions were discussed with patient. Requirements for telehealth sessions were also covered, including need for private space, limited distractions, no one else present without both parties' consent. Back-up plan was made at beginning of session in case of unexpected technology disruptions. Nearest emergency contact identified. Provider with active license in [place] and??[place]. Provider??located in [facility]??during visit. ?? Telehealth Modality: HIPAA-compliant videoconference Patient Location: [address] [place] [address] Primary Email: [email or web address] Contact (person nearby): Name Relationship Lgl Grd Work Phone Home Phone Mobile Phone 1. CONTACT,NO Brother ? [phone] ?? Local Non-Emergency Contact: Nearest Emergency Department:??[facility],??[address] [place] [address], [place] [address],? HPI: Patient presents to [facility] seeking support in relation to??caregiver stress.??Her was diagnosed with cancer in 2018.??Patient seeking services for caregiver support and coping skill attainment for improved management of anxiety??and mood regulation.? DSM-5 Diagnostic Impression: Unspecified Anxiety Disorder F41.9 and Unspecified Depressive Disorder F32.9 ?? Intervention: cognitive behavioral and supportive Session #: 4 Begin & End Time: 9:30am - 10:15am (45 minutes) ?? Session Content: Patient presented??on time to??scheduled session. Patient was unaccompanied in session. Patient reported fine mood since last visit on 09/30/21. Patient stated that she has experienced various stressors since last visit (e.g., finding mold in the basement). Patient identified a lack of practical support and identified feelings of frustration. Patient processed emotional reaction to stressors andidentified ways in which she would like to receive support. Session themes focused on??asking for support from others and utilizing strategies for self-care during times of stress. ?? Dental Technician Instructor utilized psychoeducation, empathic listening, validation, open ended questioning, normalization and selective reflections??during session discussion. Patient was actively engaged throughout the session and receptive to interventions. ?? Mental Status: Mood:??Anxious Affect:??Broad Congruency:??Mood congruent Level of consciousness & Orientation:??Alert and oriented to person, place, time Appearance:??Dressed casually, appropriately groomed Behavior/Motor:??Within normal limits Speech:??Within normal limits Concentration:??Appropriately attentive and following conversation Memory:??Intact Thought Process:??Linear and coherent?? Insight:??Appropriate Judgment:??Appropriate ?? Risk Assessment: Patient adamantly denied current and recent SI/HI/I/P. Patient did not appear to represent an imminent risk of harm to self/others. Patient remains sustainable for treatment as an outpatient. ?? Plan Patient will follow up in 2 weeks for continued individual psychotherapy. She would likely benefit from continued support and acquisition of stress management skills. ?? Ileana Dockery Psy.D. documented in this encounter Plan of Treatment Not on file documented as of this encounter Visit Diagnoses Diagnosis Anxiety and depression- Primary documented in this encounter Care Teams Licensing Worker Relationship Specialty Start Date End Date Clinton Gutierrez MD PCP - General Family Medicine 02/20/21 documented as of this encounter
--- OUTSIDE RECORDS SUMMARY | 2024-05-21 15:10 | XMS_ITS | Encounter Summary ---
Author Organization [facility] Address [address] [place] [address] Care Team Providers Care Log Sorting Supervisor Name Role Phone Clinton Gutierrez MD Primary Care Provider [phone] Reason for Visit * Reason Comments New Patient Palpitations * Consultation (Routine) - Closed Specialty Diagnoses / Procedures Referred By Contdania t Referred To Contact Cardiology Diagnoses Abnormal EKG Palpitations Gaye Abdalla PA [address] [place] [address] Phone: tel: fax: [facility] Cardiology [address] [place] [address] Phone: tel: fax: Referral ID Status Reason Start Date Expiration Date V isits Requested Visits Authorized [id number] Closed Specialty Services Required 02/19/2021 03/21/2022 1 1 Encounter Details Date Type Department Care Team (Late st Contact Info) Description 02/20/2021 11:15 AM CDT Office Visit [facility] Cardiology [address] [place] [phone] Conchita Madrigal MD [address] [place] [id number] ALVES (dyspnea on exertion) (Primary Dx); Abnormal EKG; Palpitations; Lipid screening; Hypercholesteremia; BMI 40.0-44.9, adult (HCC) Social History Tobacco Use Types Packs/Day Years Used Date Smoking Tobacco: Never Smokeless Tobacco: Never Comments Unknown Sex and Gender Information Value Date Recorded Sex Assigned at Not on file Legal Sex Female 8:21 AM CDT Gender Identity Female 02/19/2021 12:16 PM CDT Sexual Orientation Straight 02/19/2021 12 :16 PM CDT documented as of this encounter Last Filed [...] Mass Index 42.93 03/10/2021 2:07 PM CDT documented in this encounter Progress Notes * Conchita Madrigal MD - 02/20/2021 11:15 AM CDT [facility] DATE OF VISIT: 02/20/2021 CHIEF COMPLAINT Chief Complaint Patient presents with ??? New Patient Palpitations HPI Fanny Aponte is a 35 y.o. female with no significant past medical history who presents here forevaluation for palpitations. She states that she has a lot of stress since 2019 because of is sick. However starting in September of this year palpitations increasing in frequency. She noticed thather resting heart rate is always elevated. She mention that to her primary care doctor and underwent 24 hour Holter monitor along with some blood work and EKGs. She denies chest pain. She feels that she is very XR stated if she does any activity because her heart rate stays up and she feels palpitations and pounding in her chest. Admits to dyspnea on exertion. She admits to occasional dizziness but resolved after drinking water. Limb edema, syncope. Does not smoke cigarettes. Rarely she drinks coffee or tea and occasionally she drinks soda and alcohol. MEDICAL HISTORY History reviewed. No pertinent past medical history. Past Surgical History: Procedure Laterality Date ??? SECTION ??? CHOLECYSTECTOMY Social History Tobacco Use ??? Smoking status: Never Smoker ??? Smokeless tobacco: Never Used Substance Use Topics ??? Alcohol use: Not on file ??? Drug use: Never History reviewed. No pertinent family history. MEDICATIONS HOME MEDICATIONS : DULoxetine DR (CYMBALTA) 30 mg capsule ALLERGIES Allergies Allergen Reactions ? ? Azithromycin Hives and Nausea & Vomiting ??? Erythromycin Rash ??? Penicillins Rash REVIEW OF SYSTEMS Review of Systems Constitutional: Positive for malaise/fatigue. Negative for chills and fever. HENT: Negative for congestion and sore throat. Eyes: Negative for blurred vision and double vision. Cardiovascular: Positive for dyspnea on exertion and palpitations. Negative for chest pain, claudication, leg swelling, near-syncope, orthopnea, paroxysmal nocturnal dyspnea and syncope. Respiratory: Negative for cough, hemoptysis, shortness of breath, snoring, sputum production and wheezing. Endocrine: Negative for cold intolerance and polyuria. Hematologic/Lymphatic: Negative for bleeding problem. Does not bruise/bleed easily. Skin: Negative for itching and rash. Musculoskeletal: Negative for back pain, joint pain and joint swelling. Gastrointestinal: Negative for abdominal pain, diarrhea, nausea and vomiting. Genitourinary: Negative for dysuria, frequency and hematuria. Neurological: Negative for focal weakness, headaches and light-headedness. Psychiatric/Behavioral: Negative for depression. The patient is not nervous/anxious. Allergic/Immunologic: Negative for environmental allergies and hives. PHYSICAL EXAM Vitals BP 130/80 Pulse 97 Ht 165.1 cm (5' 5 ) Wt 117 kg (258 lb) BMI 42.93 kg/m?? Body mass index is 42.93 kg/m??. Physical Exam Constitutional: General: She is not in acute distress. Appearance: She is well-developed. HENT: Head: Normocephalic and atraumatic. Right Ear: External ear normal. Left Ear: External ear normal. Eyes: General: No scleral icterus. Left eye: No discharge. Conjunctiva/sclera: Conjunctivae normal. Neck: Thyroid: No thyromegaly. Cardiovascular: Rate and Rhythm: Normal rate and regular rhythm. Heart sounds: Normal heart sounds. No murmur heard. No friction rub. No gallop. Pulmonary: Effort: Pulmonary effort is normal. No respiratory distress. Breath sounds: Normal breath sounds. No wheezing or rales. Chest: Chest wall: No tenderness. Abdominal: General: There is no distension. Palpations: Abdomen is soft. There is no mass. Tenderness: There is no abdominal tenderness. Musculoskeletal: General: No tenderness or deformity. Cervical back: Normal range of motion and neck supple. Right lower leg: No edema. Left lower leg: No edema. Skin: General: Skin is warm. Findings: No erythema or rash. Neurological: Mental Status: She is alert and oriented to person, place, and time. Cranial Nerves: No cranial nerve deficit. Motor: No abnormal muscle tone. Psychiatric: Mood and Affect: Mood normal. Behavior: Behavior normal. LABS AND OTHER DIAGNOSTIC TESTS No results found for: WBC, HGB, HCT, MCV, PLT Chemistry No results found for: SODIUM, POTASSIUM, CHLORIDE, CO2, BUNSER, CREATININE, GLUCOSE No results found for: CALCIUM, ALKPHOS, AST, ALT, BILITOT Lipid panel 02/20/2021-total cholesterol 223, LDL 142, HDL 59 and triglycerides 110 24 hour Holter monitor January 2021 done at [facility]-average heart rate 86 beats per minute, 3 isolated premature atrial contractions, 1 premature ventricular contraction. Symptom of rapidheart rate corresponded to sinus rhythm between heart rate 86-103 beats per minute. EKG done at [facility] January 2021 shows normal sinus rhythm with a QTC interval 426 ASSESSMENT Diagnoses and all orders for this visit: ALVES (dyspnea on exertion) (Primary) - Transthoracic Echo Complete W Doppler/CF; Future Abnormal EKG - Ambulatory referral to Cardiology Palpitations - Ambulatory referral to Cardiology - Transthoracic Echo Complete W Doppler/CF; Future Lipid screening - POCT lipid panel Hypercholesteremia - Transthoracic Echo Complete W Doppler/CF; Future BMI 40.0-44.9, adult (HCC) PLAN/RECOMMENDATIONS Regards to dyspnea on exertion, would recommend that we obtain his cardiac structure and function and rule out heart failure as possible etiology. In regards to palpitations, the monitor showed her symptoms corresponded to sinus rhythm. No evidence of significant arrhythmias so far. QTC interval is normal. If persists will recommend adding low-dose beta-criss. -in regards to hypercholesterolemia, lipid screening today shows LDL 142, HDL 59 triglycerides 110.Counseled the patient regarding lifestyle modification including diet modification, regular exercising to lower down LDL. Will not start at this time medications. -in regards to body mass index of 43, patient should consume less than 1900 calories per day to maintain the body weight. She should be around 1400 calories a day to lose weight. Follow up in the office in in 3 months. Conchita Madrigal MD documented in this encounter Plan of Treatment Not on file documented as of this encounter Procedures Procedure Name Priority Date/Time Associated Diagnosis Comments POCT LIPID PANEL Routine 02/20/2021 11:2 1 AM CDT Lipid screening documented in this encounter Results * POCT lipid panel (02/20/2021 11:21 AM CDT) Cholesterol, POC 223 mg/dL HDL, POC 59 mg/dL Triglycerides, POC 110 mg/dL LDL Cholesterol POC 142 mg/dL Non-HDL Cholesterol, POC 164 mg/dL Capillary blood 02/20/2021 1 1:21 AM CDT us Conchita Madrigal MD POINT OF CARE TEST O RDERABLES Final Result documented in this encounter Visit Diagnoses Diagnosis ALVES (dyspnea on exertion)- Primary Other dyspnea and respiratory abnormality Abnormal EKG Nonspecific abnormal electrocardiogram (ECG) (EKG) Palpitations Lipid screening Screening for lipoid disorders Hypercholesteremia Pure hypercholesterolemia BMI 40.0-44.9, adult (HCC) documented in this encounter Historical Medications * This list may reflect changes made after this encounter. DULoxetine DR (CYMBALTA) 30 mg capsule Take 30 mg by mouth daily 01/22/2021 added in this encounter Orders Outpatient Referral Count Last Ordered Date Fir st Ordered Date AMB REFERRAL TO CARDIOLOGY 1 02/20/2021 documented in this encounter Care Teams Log Sorting Supervisor Relationship Specialty Start Date End Date Clinton Gutierrez MD PCP - General Family Medicine 02/20/21 documented as of this encounter
== END 2024-05-14 09:13 | disposition home or self-care (01) ==
PROVIDERS: Emergency Provider Nurse Practitioner Family; PCP Family Medicine
DX: J06.9 Acute upper respiratory infection, unspecified (principal); Z20.822 Contact with and (suspected) exposure to COVID-19
CPT/HCPCS: 87081; 87426; 87804; 87880; 99213; G0463

== ENCOUNTER 2024-09-09 09:57 | Emergency (ER) | payer SELFPAY ==
--- NOTE | 2024-09-09 10:02 | ED.LOWEXIN ---
HPI - Extremity Injury (Lower) General Chief Complaint: Wound/Laceration Stated Complaint: leg injury Time Seen by Provider: 09/09/24 10:07 Source: patient, RN notes reviewed and old records reviewed Mode of arrival: ambulatory Limitations: no limitations History of Present Illness HPI Narrative: 38-year-old female presents to the [facility] with a wound to the lower leg medial aspect. Patient states a dog leash rubbed against leg causing the injury. New bleeding. No swelling noted. Patient was. 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 Unknown last Tdap Onset (ago): day(s) (3) Related Data Allergies Allergy/AdvReac Type Severity Reaction Status Date / Time erythromycin base Allergy Mild Hives Verified 09/09/24 10:18 cefuroxime AdvReac Intermediate Gastrointestinal Verified 09/09/24 10:18 Upset Penicillins AdvReac Intermediate Nausea and Verified 09/09/24 10:18 Vomiting Review of Systems Review of Systems: All systems reviewed & are unremarkable except as noted in HPI and below Constitutional: Constitutional: Reports no additional constitutional complaints ENT: Reports system reviewed and no additional complaints, except as documented Cardiovascular: Cardiovascular: Reports no additional cardiovascular complaints, Denies chest pain and Denies dyspnea Respiratory: Respiratory: Reports no additional respiratory complaints, Denies chest congestion, Denies cough and Denies dyspnea Musculoskeletal: Musculoskeletal: Reports no additional musculoskeletal complaints Integumentary/Breasts: Skin/Breast: Reports as per HPI [facility] Past Medical History Medical History Anxiety Holter monitor, abnormal Cholecystectomy planned Anxiety and depression Cellulitis of left lower extremity Chronic cholecystitis Dietary counseling and surveillance (06/29/18) Disorder of appendix Encounter for surgical aftercare following surgery of digestive system Flu vaccine need Fungal infection of skin Left foot pain Peeling skin Pleural effusion RUQ abdominal pain Symptomatic cholelithiasis Surgical History Surgical History Hx of cholecystectomy History of tonsillectomy Previous section Family History Family History Mother Family history of allergic disorder Grandparent Family history of malignant neoplasm of ovary Father Hypertension Sibling Anxiety Depression Other Asthma Family history of malignant neoplasm Social History Social History Smoking status: Never smoker Second hand tobacco smoke exposure: No Alcohol intake: current Substance use: current Substance use type: marijuana Other substance usage details: edibles for sleep disorder Do You Feel Safe in your Home?: Yes Lack of Transportation: No Lack of Food: Never True Current Housing: I Have Housing Concerned About Future Housing: No Difficulty Paying Gas/Electric Bills: No Difficulty Paying for Meds: No Currently Unemployed: No Education: Trade/Vocational Certificate Difficulty w/ Childcare or Family Care: No Living arrangements: with family Occupation/Education: occupation Additional occupation/education comments: Gender identity (if verbalized by the patient): Female Comments At the time of my signature, I reviewed and agree with the nursing past medical, surgical, social, and family history. There is no relevant family history pertinent to the patient complaint. Exam Const: General: cooperative, healthy appearing, comfortable, no acute distress, well developed, alert and well nourished Nutritional Appearance: well nourished Orientation/consciousness: patient oriented x3 Limitations: no limitations HENMT: Head: normal to inspection Eyes: General: appearance normal, both eyes and all related structures Alignment and Position: alignment normal Neck: Neck: normal visual inspection, full ROM, no lymphadenopathy and no meningeal signs Chest: Chest palpation & inspection: normal inspection of the chest Resp: Effort & Inspection: normal respiratory effort and able to speak in complete sentences Cardio: Rate: regular rate Skin: General skin exam: normal color and no rashes or lesions noted Other: 6x 0.5 cm linear abrasion, scabbed. No fluctuant area. No increased warmth Neuro: General: patient oriented x3, gait normal, moves all extremities and no meningeal signs Cognition (Neuro): normal cognition Speech: normal speech Gait exam (Neuro): Normal gait present Extrem: General: normal to inspection, full ROM, capillary refill normal and normal gait Psych: Appearance: grossly normal and well kempt Mental Status: mental status grossly normal Speech and movement: Normal speech and movement present and Clear speech present Affect: normal affect Attitude: cooperative Course Course Level of Care: Express Care Visit Vital Signs Vital signs: Vital Signs Temperature 97.4 F L 09/09/24 10:08 Pulse Rate 93 09/09/24 10:08 Respiratory Rate 18 09/09/24 10:08 Blood Pressure 124/66 09/09/24 10:08 Pulse Oximetry 99 09/09/24 10:08 Oxygen Delivery Room Air 09/09/24 10:08 Temperature 97.4 F L 09/09/24 10:08 Pulse Rate 93 09/09/24 10:08 Respiratory Rate 18 09/09/24 10:08 Blood Pressure 124/66 09/09/24 10:08 Pulse Oximetry 99 09/09/24 10:08 Oxygen Delivery Room Air 09/09/24 10:08 Reviewed MDM - Extremity Injury (Lower) MDM Narrative Medical decision making narrative: Patient sitting exam nontoxic stable. Patient in no acute distress. Patient presents 3 days after injury a dog leash rubbed her leg. Friction burn Unknown last Tdap Dated tetanus, cover with antibiotic Discharge instructions reviewed with patient, as well as provided in writing per nursing staff. The instructions also include specific and strict return/GO TO THE ER as well as f/u information. All questions have been answered, and the patient deny any further questions with discharge and discharge plan. Some parts of this dictation were generated by voice recognition software and may contain typographical and/or grammatical inaccuracies. Differential Diagnosis Differential diagnosis: Likely other (Abrasion, laceration) Critical Care Time Critical Care Time Critical Care Time: No Discharge Plan Discharge Clinical Impression: Vaccine for [id number], combined Abrasion of left leg Qualifiers: Encounter type: initial encounter Qualified Code(s): S80.812A - Abrasion, left lower leg, initial encounter Patient Disposition: Home Condition: Stable Instructions: Antibiotic Form, Abrasion (ED) Additional Instructions: Keep area clean and dry. Wash twice a day with warm soapy water. Put a very thin coat of bacitracin over it. Follow-up with primary care provider While on antibiotic be sure to take a probiotic or eat a yogurt a day to help reduce side effects For new or worsening symptoms please go directly to the emergency room Patient Language: Yi Prescriptions: New clindamycin HCl [Cleocin HCl] 300 mg capsule 300 mg PO TID 7 Days Qty: 21 0RF No Action bupropion HCl [Wellbutrin XL] 300 mg tablet extended release 24 hr 300 mg PO DAILY Qty: 90 0RF dextroamphetamine-amphetamine [Adderall] 20 mg tablet 20 mg PO DAILY Qty: 30 0RF Follow-up/Referrals: Clinton Gutierrez MD [Primary Care Provider] - 2 Weeks ([facility] follow up ) Stand Alone Forms: Work/School Release IP Time of Disposition: 10:23
--- OUTSIDE RECORDS SUMMARY | 2024-09-09 10:02 | XMS_ITS | Clinical Summary ---
Author Organization [facility] Address [address] [place] [address] Care Team Providers Care Podiatric Aide Name Role Phone Unavailable Primary Care Provider Unavailabl e Source Comments [facility],non-owned Affiliates and Associated Physician Practices is amultiple site organization consisting of ambulatory clinics and hospital sitesin [place], [place], [place] and [place]. This disclosure is being madepursuant to the Care Everywhere program and may not contain all information available regarding this patient. Last updated 18.[facility] Message Bus Allergies Active Allergy Reactions Criticality Noted Date Comments Erythromycin Unknown 03/25/2020 Immunizations Immunization Administration Dates Next Due INFLUENZA VACCINE, QUADR. (F LUZONE; FLULAVAL; FLUARIX; AFLURIA QUADRIVALENT; 6MO+), 0.5 ML (IIV4) 03/25/2020 Social History Tobacco Use Types Packs/Day Years Used Date Smoking Tobacco: Never Assessed Comments Unknown Sex and Gender Information Value Date Recorded Sex Assigned at Not on file Legal Sex Female 9:14 AM [employer] Gender Identity Not on file Sexual Orientation Not on file Plan of Treatment Health Maintenance Due Date Last Done Comments HIV SCREENING 10/05/2002 HEPATITIS C SCREENING 10/01/2005 DTAP/TDAP/TD VACCINES (1 - Tdap) 10/05/2006 HEPATITIS B VACCINE (1 of 3 - 19+ 3-dose series) 10/05/2006 COVID-19 VACCINE (2023-2 5 season) 2024 DEPRESSION SCREENING 05/23/2024 INFLUENZA VACCINE (Season Ended) 2025 03/25/20 20 ZOSTER VACCINE (1 of 2) 10/05/2037 HIB VACCINE Aged Out No longer eligi ble based on patient's age to complete this topic HPV VACCINE Aged Out No longer eligi ble based on patient's age to complete this topic MENINGOCOCCAL (Group B) VACC INE SHARED DECISION-MAKING Aged Out No longer eligibl e based on patient's age to complete this topic MENINGOCOCCAL GROUPS A/C/Y/W VACCINE Aged Out No longer eligible b ased on patient's age to complete this topic PNEUMOCOCCAL VACCINE Aged Out No long er eligible based on patient's age to complete this topic Insurance [facility]
--- OUTSIDE RECORDS SUMMARY | 2024-09-09 10:02 | XMS_ITS | Clinical Summary ---
Author Organization [facility] Address [address] [place] [id number] Care Team Providers Care Profile Grinder Technician Name Role Phone Unavailable Primary Care Provider Unavailabl e Social History Tobacco Use Types Packs/Day Years Used Date Smoking Tobacco: Never Assessed Comments Unknown Sex and Gender Information Value Date Recorded Sex Assigned at Not on file Legal Sex Female 11:32 AM YAM CURER Gender Identity Not on file Sexual Orientation Not on file Plan of Treatment Health Maintenance Due Date Last Done Comments Hepatitis C Virus (HCV) Screening 1985 TdaP Immunization 1985 Hepatitis B Immunization (1 of 3 - 19+ 3-dose series) 10/05/2006 Pap Smear 10/05/2008 Cervical Cancer Screening (CCS) 10/05/2017 HPV/Cotest 10/05/2017 Influenza Immunization (#1) 2024 03/25/2020 SARS-COV-2 Immunization ( season) 2024 Respiratory Syncytial Virus (RSV) Immunization (Adult) (1 - 1-dose 75+ series) 10/05/2062 Meningococcal Immunization (ACWY) Aged Out No longer eligible based on patient's age to complete this topic Pneumococcal Immunization Combined Aged Out No longer eligible based on patient's age to complete this topic Rotavirus Immunization Aged Out No lo nger eligible based on patient's age to complete this topic Insurance [employer] on file
--- OUTSIDE RECORDS SUMMARY | 2024-09-09 10:02 | XMS_ITS | Clinical Summary ---
Author Organization [facility] Address [address] [place] [address] Care Team Providers Care Wireline Field Operator Name Role Phone Clinton Gutierrez MD Primary Care Provider Allergies Active Allergy Reactions Criticality Noted Date [...] Treatment [place] [id number] [employer] [place] [phone] [employer] [place] Member Subscriber Plan / Payer ( fective 2020-Present) Name:Fanny Aponte Relation to Subscriber:Spouse Name:RIDGE APONTE Date of :1987 (Home) Address: [place] [address] Payer ID:[id number] (NAIC) Type:BC OTHER Address: [address] [place] [address] [place] [address] [facility] Care Teams Wireline Field Operator Relationship Specialty Start Date End Date Clinton Gutierrez MD PCP - General Family Medicine 02/20/21
--- OUTSIDE RECORDS SUMMARY | 2024-09-09 10:02 | XMS_ITS | Clinical Summary ---
Author Organization [facility] Address [address] [place] [address] Care Team Providers Care Account Support Rep Name Role Phone Clinton Gutierrez MD Primary Care Provider [phone] Allergies Active Allergy Reactions Criticality Noted Date [...] 71 01/30/2024 12:15 PM CDT Temperature 36.7 C (98 F) 01/30/2024 10:09 AM CDT Respiratory Rate 18 [...] 5 Years 10/05/2017 Cervical Cancer Screening wi th HPV 10/05/2017 COVID-19 Vaccine (2023-2 5 season) 2024 08/16/2020, 07/24/2020 HPV Vaccines Aged Out No longer eligi ble based on patient's age to complete this topic Meningococcal B Vaccine Aged Out No l onger eligible based on patient's age to complete this topic Meningococcal Vaccine Aged Out No lionel zen eligible based on patient's age to complete this topic Pneumococcal Vaccine: Pediatrics (0 to 5 Years) and At-Risk Patients (6 to 49 Years) Aged Out No longer eligible b ased on patient's age to complete this topic RSV Immunizations Under 20 Months Aged Out No longer eligible b ased on patient's age to complete this topic Insurance Care Teams Account Support Rep Relationship Specialty Start Date End Date Clinton Gutierrez MD [address] [place] [address] PCP - General FAMILY PRACTICE 01/30/24
--- OUTSIDE RECORDS SUMMARY | 2024-09-09 10:02 | XMS_ITS | Referral Summary ---
Author Organization [facility] Address [address] [place] [address] Care Team Providers Care Outreach Manager Name Role Phone Clinton Gutierrez MD Primary [...] Plan of Treatment Not on file Insurance [employer] [place] [employer] [place] [facility] Member Subscriber Plan / Payer ( fective 2020-Present) Name:Fanny Aponte Relation to Subscriber:Self Name:FANNY APONTE Payer ID:[id number] (NAIC) Type:[employer] Address: [facility] [id number] [id number] Care Teams Outreach Manager Relationship Specialty Start Date End Date Clinton Gutierrez MD PCP - General Family Medicine 02/20/21
[2024-09-09 10:08] VITALS: BP 124/66; PULSE 93; RESP 18; TEMP 36.3; O2SAT 99
[2024-09-09] MEDS: TETANUS,DIPHTHERIA,AC PERTUSSIS ADULT (0.5 ML) BOOSTRIX IM (10:30)
== END 2024-09-09 10:37 | disposition home or self-care (01) ==
PROVIDERS: Emergency Provider Nurse Practitioner; PCP Family Medicine
DX: S80.812A Abrasion, left lower leg, initial encounter (principal); W22.8XXA Striking against or struck by other objects, initial encounter; Z23 Encounter for immunization; Z22.322 Carrier or suspected carrier of Methicillin resistant Staphylococcus aureus; F41.9 Anxiety disorder, unspecified; F32.A Depression, unspecified
CPT/HCPCS: 90471; 90715; 99213; G0463